=== PATIENT | male | born 2000 | race Two or more races ===

== ENCOUNTER 2023-05-04 08:22 | Outpatient (REF) | payer OTHER, SELFPAY ==
[2023-05-05 09:49] LABS: C. Difficile PCR NEGATIVE (NEGATIVE)
== END 2023-05-04 09:30 | disposition home or self-care (01) ==
LOC: LAB 08:22
PROVIDERS: PCP Nurse Practitioner; Visit Provider Nurse Practitioner
DX: R53.83 Other fatigue (principal); R10.9 Unspecified abdominal pain; R19.7 Diarrhea, unspecified; R42 Dizziness and giddiness; F17.200 Nicotine dependence, unspecified, uncomplicated
CPT/HCPCS: 87493

== ENCOUNTER 2024-08-20 12:49 | Emergency (ER) | payer BC, SELFPAY ==
[2024-08-20 12:53] VITALS: BP 145/83; PULSE 96; TEMP 36.4; O2SAT 100; BMI 17.8
--- NOTE | 2024-08-20 13:07 | US_ITS ---
[address] [address] Patient Name: MARGARETH BRICENO MRN: [id number] date: 2000 Sex: M Assigned Patient Location: ER Current Patient Location: ED.MAIN Accession/Order Number: [id number] Exam Date: 08/20/2024 13:34 Report Date: 08/20/2024 14:56 At the request of: ED BOO Procedure: US scrotum doppler EXAM: US scrotum doppler HISTORY: pain left testicle COMPARISON: None. TECHNIQUE: Scrotal/vascular ultrasound with grayscale and color Doppler imaging FINDINGS: Normal symmetric appearance and symmetric 1 testicles without focal lesion, edema or evidence of torsion. Right testicle 4.6 x 2.1 x 3.2 cm. Left testicle 4.5 x 2.6 x 3.4 cm. Normal homogeneous appearance right left epididymis without focal lesion or abnormal flow. No hydrocele. Prominent vessels medial to the left testicle suggests varicocele. US/US scrotum doppler IMPRESSION: 1 normal appearance and symmetric flow testicles without focal lesion or torsion. 2. Varicocele. Electronically authenticated by: RENU CORCORAN Date: 08/20/2024 14:56
[2024-08-20 13:53] VITALS: BP 125/75; PULSE 84; O2SAT 99
[2024-08-20 14:40] LABS: Bilirubin Urine NEGATIVE (NEGATIVE); Blood Urine NEGATIVE (NEGATIVE); Clarity Urine CLEAR (CLEAR); Color Urine LT. YELLOW (YELLOW); Glucose Urine UA NEGATIVE (NEGATIVE); Ketones Urine NEGATIVE (NEGATIVE); Leukocyte Esterase Urine NEGATIVE (NEGATIVE); Nitrite Urine NEGATIVE (NEGATIVE); Protein Urine NEGATIVE (NEG/TRACE); Specific Gravity Urine <=1.005 (1.005-1.025); Urobilinogen Urine 0.2 EU/dL (0.2-1.0)
[2024-08-20 14:41] LABS: Urine Microscopic Indicated NO
[2024-08-20 14:42] LABS: Cast Seen? NONE SEEN #/LPF (NONE SEEN)
--- NOTE | 2024-08-20 14:51 | ED_ITS ---
HPI - Male Genitourinary General Chief complaint: Urogenital-Male Stated complaint: L TESTICULAR PAIN Time Seen by Provider: 08/20/24 12:51 Source: patient Mode of arrival: walk-in Limitations: no limitations History of Present Illness HPI Narrative: Yesterday, the patient started to experience intermittent pain in the left testicle. Today it became constant. He also states that he has had some pain with urination. No prior history of kidney stone or testicular torsion. No fever vomiting Related Data Allergies Allergy/AdvReac Type Severity Reaction Status Date / Time No Known Drug Allergies Allergy Verified 08/20/24 12:58 PFSH PFSH Social History Little interest or pleasure in doing things: not at all Feeling down, depressed, or hopeless: not at all Exam Narrative Exam Narrative: Nurses notes and vital signs reviewed and patient is not hypoxic. afebrile General: Well-appearing and in no apparent distress. Skin: Warm, dry, no pallor noted. No rash. Eye: No scleral icterus. Cardiovascular: Regular Rate and Rhythm without murmur, gallop or rub. Respiratory: No accessory muscle use or respiratory distress. Lungs are clear to auscultation, no wheezing, rales or rhonchi Back: No CVA tenderness Musculoskeletal: normal ROM GI: Abdomen is soft, non-distended. Normal bowel sounds. No inguinal masses appreciated. No abdominal or inguinal tenderness to palpation. No rebound, guarding, or rigidity noted. Genital: Normal-appearing male genitalia. No skin lesions or sign of chancroid. Negative Prehn's sign. Patient does have some pain with left testicular manipulation and palpation of the superior aspect of the left testicle neurological: A&O x4. No cranial nerve dysfunction observed. No truncal ataxia. Moves all extremities. Sensation intact. Psychiatric: Cooperative and interactive. Normal mood and affect. Constitutional Vital Signs, click to edit/add: Last Vital Signs Temp 97.6 F 08/20/24 12:53 Pulse 84 08/20/24 13:53 Resp 20 08/20/24 13:53 BP 125/75 08/20/24 13:53 Pulse Ox 99 08/20/24 13:53 O2 Del Method Room Air 08/20/24 13:53 Course Vital Signs Vital signs: Vital Signs Temperature 97.6 F 08/20/24 12:53 Pulse Rate 96 H 08/20/24 12:53 Respiratory Rate 20 08/20/24 12:53 Blood Pressure 145/83 H 08/20/24 12:53 Pulse Oximetry 100 08/20/24 12:53 Oxygen Delivery Method Room Air 08/20/24 12:53 Temperature 97.6 F 08/20/24 12:53 Pulse Rate 84 08/20/24 13:53 Respiratory Rate 20 08/20/24 13:53 Blood Pressure 125/75 08/20/24 13:53 Pulse Oximetry 99 08/20/24 13:53 Oxygen Delivery Method Room Air 08/20/24 13:53 MDM - Male Genitourinary MDM Narrative Medical decision making narrative: Scrotal ultrasound did not reveal any testicular mass. He has good flow to both testicles. There is a little bit of varicocele noted on the left testicle. No epididymitis was appreciated. UA was negative Results explained to pt and he was discharged home - tylenol or motrin for pain, drink plenty of fluids. Lab Data Attestation: I reviewed the patient's lab results. Labs: Lab Results 08/20/24 Range/Units 13:18 Urine Color Lt. yellow (YELLOW) Urine Clarity Clear (CLEAR) Urine pH 7.0 (5.0-9.0) Ur Specific [place] <=1.005 A (1.005-1.025) Urine Protein Negative (NEG/TRACE) mg/dL Urine Glucose (UA) Negative (NEGATIVE) mg/dL Urine Ketones Negative (NEGATIVE) mg/dL Urine Occult Blood Negative (NEGATIVE) Urine Nitrite Negative (NEGATIVE) Urine Bilirubin Negative (NEGATIVE) Urine Urobilinogen 0.2 (0.2-1.0) EU/dL Ur Leukocyte Esterase Negative (NEGATIVE) Urine RBC Not Reportable Urine WBC Not Reportable Ur Squamous Epith Cells Not Reportable Urine Crystals Not Reportable Urine Bacteria Not Reportable Urine Casts None seen (NONE SEEN) #/LPF Urine Mucus Not Reportable Imaging Data us scrotum: Attestation: I have reviewed the pertinent imaging results. Radiologist's impression: ITS Impressions Scrotum Ultrasound 08/20/24 13:07 IMPRESSION: 1 normal appearance and symmetric flow testicles without focal lesion or torsion. 2. Varicocele. Electronically authenticated by: RENU CORCORAN Date: 08/20/2024 14:56 Discharge Plan Discharge Chief Complaint: Urogenital-Male Clinical Impression: Varicocele, Left testicular pain Patient Disposition: Home, Self-Care Time of Disposition Decision: 15:00 Print Language: French Instructions: Testicle Pain (ED) Referrals: DANA CALVO [Primary Care Provider] - 1 week Sean Romero MD [Physician] - As needed
== END 2024-08-20 15:11 | disposition home or self-care (01) ==
PROVIDERS: Emergency Provider Emergency Medicine; PCP Nurse Practitioner
DX: I86.1 Scrotal varices (principal); N50.812 Left testicular pain
CPT/HCPCS: 76870; 81001; 81003; 93976; 99284

== ENCOUNTER 2024-09-16 09:31 | Outpatient (OUT) | payer BC, SELFPAY ==
--- NOTE | 2024-09-16 09:38 | XR_ITS ---
[facility] [place] [id number] Patient Name: MARGARETH BRICENO MRN: [id number] date: 2000 Sex: M Assigned Patient Location: [facility] Current Patient Location: [facility] Accession/Order Number: [id number] Exam Date: 09/16/2024 11:08 Report Date: 09/16/2024 11:09 At the request of: DANA CALVO Procedure: XR chest 2V PA AND LATERAL CHEST: CLINICAL HISTORY: Cough, Wheezing COMPARISON: 03/29/2022 There is no focal parenchymal consolidation, effusion or pneumothorax. The cardiac, hilar and mediastinal silhouettes are within normal limits. There is no vascular congestion. The visualized bony thorax is intact. There is subtle thoracolumbar scoliotic curvature. XR/XR chest 2V IMPRESSION: NO ACUTE CARDIOPULMONARY ABNORMALITY. Impression dictated by: Karolyn Andre M.D.09/16/2024 11:09 AM [facility]ation [facility] Electronically authenticated by: [id number] Y Date: 09/16/2024 11:09
== END 2024-09-16 09:32 | disposition home or self-care (01) ==
LOC: RAD 09:32
PROVIDERS: PCP Nurse Practitioner; Visit Provider Nurse Practitioner
DX: R05.9 Cough, unspecified (principal); R06.2 Wheezing
CPT/HCPCS: 71046

== ENCOUNTER 2024-10-24 19:25 | Emergency (ER) | payer SELFPAY ==
[2024-10-24 19:35] VITALS: BP 121/83; PULSE 77; TEMP 36.6; O2SAT 100; BMI 17.2
--- OUTSIDE RECORDS SUMMARY | 2024-10-24 19:38 | XMS_ITS | CCD ---
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 mg/inh [place], 1 spray(s), Nasal, BID, 1 refills Al (more content not included)... Normal [facility] Comment on above: Result Comment: Elec tronically Signed By: Rani Vasquez\.br\Date and Time Signed: 08/30/24 12:19 EST Ambulatory Visit Summaryon 0 08-05-2024 Ambulatory Visit Summary Ambulatory Visit Summary MARGARETH BRICENO :2000 Visit Date:08/05/2024 Ambulatory Visit Instructions Your Diagnosis Smoker Body mass index (BMI) less than 16.5 Ear pain Your Care Team Attending Physician - Rani Vasquez Primary Care Physician - Rani Vasquez This Is Your Medications List escitalopram (escitalopram 5 mg oral tablet) Procedures Performed Extraction of wisdom tooth. Discharge Vitals Temperature (Oral) 36.8 ???C Heart Rate (Peripheral) 90 Respiratory Rate 20 Blood Pressure 110/80 Height 169.0 cm Height 67 in Weight 48.3 kg Weight 106.483 lb BMI 16.91 What to do next Scheduled Follow-Up Appointments Thursday 10:20 AM EST With: Rani Vasquez Where: [address] [id number]- Medications What How Much When Why Instructions Unchanged escitalopram (escitalopram 5 mg oral tablet) 1 Tablets By Mouth Every day Smoker Body mass index (BMI) less than 16.5 Right otitis media Swollen lymph nodes Anxiety Medications and Immunizations Administered Given Kenalog-40, 40 mg, IntraARTICULAR. For: Ear pain Allergies No Known Allergies Problems Ongoing - Any problem that you are currently receiving treatment for. Acid reflux Anxiety Bloating BMI less than 19,adult Body mass index (BMI) of 19 or less in adult Cerumen impaction Chest congestion Chest discomfort Cough Diarrhea Dizziness Dysuria Exposure to chlamydia Fatigue Fever Folliculitis High risk heterosexual behavior Racing heart beat Right otitis media Seasonal allergies Sinusitis Smoker Sore of penis Stomach pain Swollen lymph nodes Wheezing Patient Survey You may receive a survey via text or e-mail asking about your office visit. Please share your experience with us by completing your survey. We appreciate your feedback and thank you for choosing us for your care. Normal [facility] Medicine Office/Clini c Noteon 08-05-2024 Family Medicine Office/Clinic Note Family Medicine Office/Clinic Note HPI Staff Margareth is a 24 year old male presenting with Onset: 2 weeks Fevers: no Sinus congestion: yes Sneezing: a little bit Ear pain: Ear itching, popping, fullness, ringing, muffled hearing: POPPING, Ear drainage: yes both Swollen nodes: no Sore throat: no Ear pain worse with chewing: no Itching: no Difficulty hearing: yes Wheezing, cough, yellow mucous Interested in a shot instead of pills (04-25-24) was his last one MERCED- he didn't take ANY of the meds you gave him MERCED- he wants the shot instead History of Present Illness pt presents today c/o popping in ears and wheezing Review of Systems PHQ Score Initial Depression Screen Score: 2 SCORE Physical Exam Vitals & Measurements T: 36.8 ???C(Oral) HR: 90(Peripheral) RR: 20 BP: 110/80 SpO2: 98% HT: 67 in HT: 169.0 cm WT: 48.3 kg WT: 106.483 lb BMI: 16.91 General: alert, no acute distress ENMT: oral mucosa moist, no pharyngeal erythema or exudate, MARIBEL TM bulging with fluid Cardiovascular: regular rate and rhythm, normal peripheral perfusion Respiratory: Lungs expiratory wheezes, respirations non labored Extremities: no deformity, no trauma Neurological: oriented x 4, LOC appropriate for age, CN II-XII intact, motor strength equal & normal bilaterally, speech normal Assessment/Plan 1. Ear pain (H92.09: Otalgia, unspecified ear) pt c/o ear pain and popping. MARIBEL TM are bulging with fluid. pt never took antibiotic that I sent in or medrol dose pack from last visit. he will start antibiotic today Ordered: triamcinolone, 40 mg = 1 mL, Injection, IntraARTICULAR, Once, Stop date 08/05/24 14:42:00 EST, Routine, Start date 08/05/24 14:42:00 EST, 08/05/24 14:42:00 EST 2. Wheezing (R06.2: Wheezing) kenalog given. will start antibiotic 3. Fluid level behind tympanic membrane of both ears (H65.93: Unspecified nonsuppurative otitis media, bilateral) will give kenlaong 40mg in office today 4. Smoker (F17.200: Nicotine dependence, unspecified, uncomplicated) continue not smoking 5. Body mass index (BMI) less than 16.5 (Z68.1: Body mass index [BMI] 19.9 or less, adult) BMi education Follow-up No qualifying data available Problem List/Past Medical History Ongoing Acid reflux Anxiety Bloating BMI less than 19,adult Body mass index (BMI) of 19 or less in adult Cerumen impaction Chest congestion Chest discomfort Cough Diarrhea Dizziness Dysuria Exposure to chlamydia Fatigue Fever Fluid level behind tympanic membrane of both ears Folliculitis High risk heterosexual behavior Racing heart beat Right otitis media Seasonal allergies Sinusitis Smoker Sore of penis Stomach pain Swollen lymph nodes Wheezing Historical No qualifying data Procedure/Surgical History Extraction of wisdom tooth. Medications escitalopram 5 mg oral tablet, 5 mg= 1 tab(s), Oral, Daily, 1 refills Allergies No Known Allergies Social History Alcohol Current. Beer. 1-2 times per month., 06/27/2024 Substance Abuse Past. Cocaine, Marijuana, Prescription medications. Previous treatment: None., 06/27/2024 Tobacco 10 or more cigarettes (1/2 pack or more)/day in last 30 days Tobacco Use:. Never Smokeless Tobacco Use:. Cigarettes, Started age 18.0 Years. Household tobacco concerns: No. Yes, 08/05/2024 Family History Hypertension: Grandparent. Immunizations Vaccine Date Status Comments influenza virus vaccine, inactivated - Not Given Patient Refuses poliovirus vaccine, inactivated 02/23/2006 Recorded measles/mumps/rubella virus vaccine 02/23/2006 Recorded diphtheria/pertussis, acel/tetanus ped 02/23/2006 Recorded varicella virus vaccine 09/05/2002 Recorded Hib, unspecified formulation 09/05/2002 Recorded DTaP, unspecified formulation 09/05/2002 Recorded measles/mumps/rubella virus vaccine 02/23/2002 Recorded poliovirus vaccine, inactivated 2001 Recorded DTaP, unspecified formulation 2001 Recorded poliovirus vaccine, inactivated 2001 Recorded DTaP, unspecified formulation 2001 Recorded poliovirus vaccine, inactivated 2001 Recorded DTaP, unspecified formulation 2001 Recorded Normal [facility] Comment on above: Result Comment: Elec tronically Signed By: Rani Vasquez\.br\Date and Time Signed: 08/05/24 15:58 EST Provider Letteron 08-05-2024 Provider Letter Provider Letter August 05, 2024 MARGARETH BR[address]ENO [address] [place] [address] : 2000 To Whom It May Concern, Please excuse above patient from work.08/05/2024 Date of Illness: From: 08/05/2024 To: _08/09/2024 May Return to Work On:08/10/2024 Sincerely, [facility] [place] [address] Alesha Rubio [facility] Medicine Office/Clini c Noteon 07-19-2024 Family Medicine Office/Clinic Note Family Medicine Office/Clinic Note HPI Staff Margareth is a 24 year old male presenting with swollen lymph nodes/ lump in throat Onset: Last Thursday morning woke up when he swallows he feels like swallowing a big pill that won't go down Right side lymph node swollen pressure against throat Tried nothing History of Present Illness pt presents today with swollen lymph node and sore throat Review of Systems PHQ Score Initial Depression Screen Score: 0 SCORE Physical Exam Vitals & Measurements T: 36.3 ???C(Oral) HR: 90(Peripheral) RR: 18 BP: 116/78 SpO2: 100% HT: 67 in HT: 169.0 cm WT: 47.8 kg WT: 105.381 lb BMI: 16.74 General: alert, no acute distress ENMT: oral mucosa moist, no pharyngeal erythema or exudate, right TM red and full of fluid Cardiovascular: regular rate and rhythm, normal peripheral perfusion Respiratory: Lungs CTA, respirations non labored Extremities: no deformity, no trauma Neurological: oriented x 4, LOC appropriate for age, CN II-XII intact, motor strength equal & normal bilaterally, speech normalsmall right sided mandibular lymph node swollen and tender Assessment/Plan 1. Right otitis media (H66.91: Otitis media, unspecified, right ear) Right OM noted on exam. will treat with antibiotic. 2. Swollen lymph nodes (R59.9: Enlarged lymph nodes, unspecified) swollen and tender lymph node on right side. medrol dose pack sent in 3. Anxiety (F41.9: Anxiety disorder, unspecified) pt feels his anxiety is worsening and would like to start on medication. will start low dose lexapro. RTC 4 weeks 4. Smoker (F17.200: Nicotine dependence, unspecified, uncomplicated) consider not smoking 5. Body mass index (BMI) less than 16.5 (Z68.1: Body mass index [BMI] 19.9 or less, adult) BMI education given Follow-up No qualifying data available Problem List/Past Medical History Ongoing Acid reflux Anxiety Bloating BMI less than 19,adult Body mass index (BMI) of 19 or less in adult Cerumen impaction Chest congestion Chest discomfort Cough Diarrhea Dizziness Dysuria Exposure to chlamydia Fatigue Fever Folliculitis High risk heterosexual behavior Racing heart beat Right otitis media Seasonal allergies Sinusitis Smoker Sore of penis Stomach pain Swollen lymph nodes Wheezing Historical No qualifying data Procedure/Surgical History Extraction of wisdom tooth. Medications Augmentin 875 mg oral tablet, 1 tab(s), Oral, q12hr escitalopram 5 mg oral tablet, 5 mg= 1 tab(s), Oral, Daily, 1 refills Medrol 4 mg Tab, 1 packet(s), Oral, As Directed Allergies No Known Allergies Social History Alcohol Current. Beer. 1-2 times per month., 06/27/2024 Substance Abuse Past. Cocaine, Marijuana, Prescription medications. Previous treatment: None., 06/27/2024 Tobacco 10 or more cigarettes (1/2 pack or more)/day in last 30 days Tobacco Use:. Never Smokeless Tobacco Use:. Cigarettes, Started age 18.0 Years. Household tobacco concerns: No. Yes, 06/27/2024 Family History Hypertension: Grandparent. Immunizations Vaccine Date Status Comments influenza virus vaccine, inactivated - Not Given Patient Refuses poliovirus vaccine, inactivated 02/23/2006 Recorded measles/mumps/rubella virus vaccine 02/23/2006 Recorded diphtheria/pertussis, acel/tetanus ped 02/23/2006 Recorded varicella virus vaccine 09/05/2002 Recorded Hib, unspecified formulation 09/05/2002 Recorded DTaP, unspecified formulation 09/05/2002 Recorded measles/mumps/rubella virus vaccine 02/23/2002 Recorded poliovirus vaccine, inactivated 2001 Recorded DTaP, unspecified formulation 2001 Recorded poliovirus vaccine, inactivated 2001 Recorded DTaP, unspecified formulation 2001 Recorded poliovirus vaccine, inactivated 2001 Recorded DTaP, unspecified formulation 2001 Recorded Normal [facility] Comment on above: Result Comment: Elec tronically Signed By: Rani Vasquez\.br\Date and Time Signed: 07/19/24 08:17 EST Chlam/GC/TrichReed 024 C. trachomatis rRNA NELSY+probe Ql (Unsp spec) Negative Invalid Interpretation Code Negative [facility] Comment on above: Performed By: #### 1 [id number] #### [facility] [address] [place] [address] N. gonorrhoeae rRNA NELSY+probe Ql (Unsp spec) Negative Invalid Interpretation Code Negative [facility] Comment on above: Performed By: #### 1 [id number] #### [facility] [address] [place] [address] T. vaginalis rRNA NELSY+probe Ql (Unsp spec) Negative Invalid Interpretation Code Negative [facility] Comment on above: Result Comment: Perf ormed at: =G [facility] [address] [facility] [place] [id number] MD William Dunbar Performed By: #### 1 [id number] #### [facility] [address] [place] [address] Reminderson 06-30-2024 Reminders Reminders From: Rani Vasquez To: [facility] - Clinical; Sent: 06/30/2024 11:44:03 EST Show up: 06/30/2024 11:44:00 EST Subject: Ambulatory Reminder Due Date/Time: 07/01/2024 11:43:00 EST STD tests were negative Results: Date Result Name Value Ref Range 06/27/2024 9:38 Chlamydia by NELSY Negative (Negative - ) 06/27/2024 9:38 Gonococcus by NELSY Negative (Negative - ) 06/27/2024 9:38 Trich vag by NELSY Negative (Negative - ) Pt has been notified. Normal [facility] Ambulatory Visit Summaryon 1 08-28-2023 Ambulatory Visit Summary Ambulatory Visit Summary MARGARETH BRICENO :2000 Visit Date:06/27/2024 Ambulatory Visit Instructions Your Diagnosis Cough Dysuria BMI less than 19,adult Smoker Your Care Team Attending Physician - Rani Vasquez Primary Care Physician - Rani Vasquez This Is Your Medications List brompheniramine/dextr omethorphan/PSE (Bromfed DM oral syrup) fluticasone nasal (Flonase 0.05 mg/inh [place]) Procedures Performed Extraction of wisdom tooth. Discharge Vitals Temperature (Tympanic) 36.8 ???C Heart Rate (Peripheral) 78 Respiratory Rate 18 Blood Pressure 120/80 Height 169 cm Height 67 in Weight 48.55 kg Weight 107.034 lb BMI 17 Medications What How Much When Why Instructions New brompheniramine/ dextromethorphan/ PSE (Bromfed DM oral syrup) 5 Milliliter By Mouth At bedtime as needed for for cold symptoms Cough Dysuria BMI less than 19,adult Smoker Pickup at [facility] Unchanged fluticasone nasal (Flonase 0.05 mg/ inh [place]) 1 Sprays Nasal Inhalation 2 times a day Seasonal allergies Sinusitis Cerumen impaction Smoker BMI less than 19,adult each nostril Pharmacy Information [facility]: [address] [place], [place] [id number] [phone] Allergies No Known Allergies Problems Ongoing - Any problem that you are currently receiving treatment for. Acid reflux Bloating BMI less than 19,adult Body mass index (BMI) of 19 or less in adult Cerumen impaction Chest congestion Chest discomfort Cough Diarrhea Dizziness Dysuria Exposure to chlamydia Fatigue Fever Folliculitis High risk heterosexual behavior Racing heart beat Seasonal allergies Sinusitis Smoker Sore of penis Stomach pain Wheezing Patient Survey You may receive a survey via text or e-mail asking about your office visit. Please share your experience with us by completing your survey. We appreciate your feedback and thank you for choosing us for your care. Normal [facility] Family Medicine Office/Clini c Noteon 06-27-2024 Family Medicine Office/Clinic Note Family Medicine Office/Clinic Note Chief Complaint STD check & Sick Visit HPI Staff Margareth is a 24 year old male presenting with STD check and possible and pneumonia. Denies difficulty breathing. Daughter was hospitalized with pneumonia last week. Did have cough for 2wks. Has been keeping him up at night. Would like tested for Trich/Chlam & Brian. Has been having burning with urination. History of Present Illness pt presents today for painful urination requesting STD testing and cough Review of Systems PHQ Score Initial Depression Screen Score: 1 SCORE Physical Exam Vitals & Measurements T: 36.8 ???C(Tympanic) HR: 78(Peripheral) RR: 18 BP: 120/80 SpO2: 95% HT: 67 in HT: 169 cm WT: 48.55 kg WT: 107.034 lb BMI: 17 General: alert, no acute distress ENMT: oral mucosa moist, no pharyngeal erythema or exudate Cardiovascular: regular rate and rhythm, normal peripheral perfusion Respiratory: Lungs CTA, respirations non labored Extremities: no deformity, no trauma Neurological: oriented x 4, LOC appropriate for age, CN II-XII intact, motor strength equal & normal bilaterally, speech normal Assessment/Plan 1. Cough (R05.9: Cough, unspecified) pt has had a cough for about 3 weeks. cough is improving except for at bedtime. will send Bromfed to help with cough. Ordered: brompheniramine/dextr omethorphan/PSE, 5 mL, Oral, Bedtime for cold symptoms, 120 mL, Refill(s) 0, [facility], 169, cm, 06/27/24 9:15:00 EST, Height/Length Dosing, 48.5, kg, 06/27/24 9:15:00 EST, Weight Dosing 2. Dysuria (R30.0: Dysuria) pt c/o dysuria, will run u/a and std testing. u/a negative in office today Ordered: brompheniramine/dextr omethorphan/PSE, 5 mL, Oral, Bedtime for cold symptoms, 120 mL, Refill(s) 0, [facility], 169, cm, 06/27/24 9:15:00 EST, Height/Length Dosing, 48.5, kg, 06/27/24 9:15:00 EST, Weight Dosing Chlam/GC/Trich,NELSY Urnls Dip Stick Auto w/o [place]scopy P[place] 26044 3. BMI less than 19,adult (Z68.1: Body mass index [BMI] 19.9 or less, adult) BMI education Ordered: brompheniramine/dextr omethorphan/PSE, 5 mL, Oral, Bedtime for cold symptoms, 120 mL, Refill(s) 0, [facility], 169, cm, 06/27/24 9:15:00 EST, Height/Length Dosing, 48.5, kg, 06/27/24 9:15:00 EST, Weight Dosing 4. Smoker (F17.200: Nicotine dependence, unspecified, uncomplicated) consider not smoking Ordered: brompheniramine/dextr omethorphan/PSE, 5 mL, Oral, Bedtime for cold symptoms, 120 mL, Refill(s) 0, [facility], 169, cm, 06/27/24 9:15:00 EST, Height/Length Dosing, 48.5, kg, 06/27/24 9:15:00 EST, Weight Dosing Follow-up No qualifying data available Problem List/Past Medical History Ongoing Acid reflux Bloating BMI less than 19,adult Body mass index (BMI) of 19 or less in adult Cerumen impaction Chest congestion Chest discomfort Cough Diarrhea Dizziness Dysuria Exposure to chlamydia Fatigue Fever Folliculitis High risk heterosexual behavior Racing heart beat Seasonal allergies Sinusitis Smoker Sore of penis Stomach pain Wheezing Historical No qualifying data Procedure/Surgical History Extraction of wisdom tooth. Medications Bromfed DM oral syrup, 5 mL, Oral, Bedtime, PRN Flonase 0.05 mg/inh [place], 1 spray(s), Nasal, BID Allergies No Known Allergies Social History Alcohol Current. Beer. 1-2 times per month., 06/27/2024 Substance Abuse Past. Cocaine, Marijuana, Prescription medications. Previous treatment: None., 06/27/2024 Tobacco 10 or more cigarettes (1/2 pack or more)/day in last 30 days Tobacco Use:. Never Smokeless Tobacco Use:. Cigarettes, Started age 18.0 Years. Household tobacco concerns: No. Yes, 06/27/2024 Family History Hypertension: Grandparent. Immunizations Vaccine Date Status Comments influenza virus vaccine, inactivated - Not Given Patient Refuses poliovirus vaccine, inactivated 02/23/2006 Recorded measles/mumps/rubella virus vaccine 02/23/2006 Recorded diphtheria/pertussis, acel/tetanus ped 02/23/2006 Recorded varicella virus vaccine 09/05/2002 Recorded Hib, unspecified formulation 09/05/2002 Recorded DTaP, unspecified formulation 09/05/2002 Recorded measles/mumps/rubella virus vaccine 02/23/2002 Recorded poliovirus vaccine, inactivated 2001 Recorded DTaP, unspecified formulation 2001 Recorded poliovirus vaccine, inactivated 2001 Recorded DTaP, unspecified formulation 2001 Recorded poliovirus vaccine, inactivated 2001 Recorded DTaP, unspecified formulation 2001 Recorded Lab Results Ambulatory Point of Care Results Bilirubin Urine Dipstick: Negative (06/27/24 09:40:00) Blood Urine Dipstick: Negative (06/27/24 09:40:00) Glucose Urine Dipstick: Negative (06/27/24 09:40:00) Ketones Urine Dipstick: Negative (06/27/24 09:40:00) Leukocytes Urine Dipstick: Negative (06/27/24 09:40:00) Nitrite Urine Dipstick: Negative (06/27/24 09:40:00) Prote (more content not included)... Normal [facility] Comment on above: Result Comment: Elec tronically Signed By: Rani Vasquez\.br\Date and Time Signed: 06/27/24 10:04 EST Ambulatory Visit Summaryon 0 04-25-2024 Ambulatory Visit Summary Ambulatory Visit Summary MARGARETH BRICENO :2000 Visit Date:04/25/2024 Ambulatory Visit Instructions Your Diagnosis Seasonal allergies Sinusitis Cerumen impaction Racing heart beat Smoker BMI less than 19,adult Your Care Team Attending Physician - Rani Vasquez Primary Care Physician - Rani Vasquez This Is Your Medications List azithromycin (azithromycin 500 mg oral tablet) fluticasone nasal (Flonase 0.05 mg/inh [place]) Procedures Performed Extraction of wisdom tooth. Discharge Vitals Temperature (Oral) 36.7 ?C Heart Rate (Peripheral) 74 Respiratory Rate 18 Blood Pressure 116/78 Height 169.0 cm Height 67 in Weight 50.5 kg Weight 111.1 lb BMI 17.68 Medications What How Much When Why Instructions New fluticasone nasal (Flonase 0.05 mg/ inh [place]) 1 Sprays Nasal Inhalation 2 times a day Seasonal allergies Sinusitis Cerumen impaction Smoker BMI less than 19,adult each nostril Pickup at [facility] Unchanged azithromycin (azithromycin 500 mg oral tablet) 1 Tablets By Mouth Every day Duration: 5 Days Pickup at [facility] Pharmacy Information [facility]: [address] [place] [id number] [phone] Allergies No Known Allergies Problems Ongoing - Any problem that you are currently receiving treatment for. Acid reflux Bloating BMI less than 19,adult Body mass index (BMI) of 19 or less in adult Cerumen impaction Chest congestion Chest discomfort Cough Diarrhea Dizziness Exposure to chlamydia Fatigue Fever Folliculitis High risk heterosexual behavior Racing heart beat Seasonal allergies Sinusitis Smoker Sore of penis Stomach pain Wheezing Patient Survey You may receive a survey via text or e-mail asking about your office visit. Please share your experience with us by completing your survey. We appreciate your feedback and thank you for choosing us for your care. Alesha [facility] Family Medicine Office/Clini c Noteon 04-25-2024 Family Medicine Office/Clinic Note Family Medicine Office/Clinic Note HPI Staff Margareth is a 24 year old male presenting with productive cough, sore throat, chills, dizzy, lower right abdomen Onset; Started over the weekend Body aches: yes Chills: yes Fatigue: yes Cough: yes Sore throat: yes Fever: no hasn't checked Headache: no Nasal congestion: yes Loss of taste: no Loss of smell: no Eye itching/watering: no Sneezing: no SOB: yes Known Exposure: History of Present Illness pt presents with URI symptoms Review of Systems PHQ Score Initial Depression Screen Score: 0 SCORE Physical Exam Vitals & Measurements T: 36.7 ?C(Oral) HR: 74(Peripheral) RR: 18 BP: 116/78 SpO2: 99% HT: 67 in HT: 169.0 cm WT: 50.5 kg WT: 111.1 lb BMI: 17.68 General: alert, no acute distress ENMT: oral mucosa moist, no pharyngeal erythema or exudate Cardiovascular: regular rate and rhythm, normal peripheral perfusion Respiratory: Lungs CTA, respirations non labored Extremities: no deformity, no trauma Neurological: oriented x 4, LOC appropriate for age, CN II-XII intact, motor strength equal & normal bilaterally, speech normal both ears impacted with wax Assessment/Plan 1. Seasonal allergies (J30.2: Other seasonal allergic rhinitis) kenalog 40mg given in office today. pt encouraged to get zyrtec and flonase was ordered. Ordered: fluticasone nasal, 1 spray(s), Nasal, BID, 16 gram, Refill(s) 0, each nostril, [facility], 169, cm, 04/25/24 15:25:00 EDT, Height/Length Dosing, 50.5, kg, 04/25/24 15:25:00 EDT, Weight Dosing 2. Sinusitis (J32.9: Chronic sinusitis, unspecified) z pack sent. Ordered: fluticasone nasal, 1 spray(s), Nasal, BID, 16 gram, Refill(s) 0, each nostril, [facility], 169, cm, 04/25/24 15:25:00 EDT, Height/Length Dosing, 50.5, kg, 04/25/24 15:25:00 EDT, Weight Dosing 3. Cerumen impaction (H61.20: Impacted cerumen, unspecified ear) pt encouraged to get debrox and return in 7-10 days for ear irrigation Ordered: fluticasone nasal, 1 spray(s), Nasal, BID, 16 gram, Refill(s) 0, each nostril, [facility], 169, cm, 04/25/24 15:25:00 EDT, Height/Length Dosing, 50.5, kg, 04/25/24 15:25:00 EDT, Weight Dosing 4. Racing heart beat (R00.0: Tachycardia, unspecified) pt feels like in the mornings his heart races, he feels dizzy and weak. after drinking coffee he feels better. will order fasting glucose. 5. Smoker (F17.200: Nicotine dependence, unspecified, uncomplicated) consider not smoking Ordered: fluticasone nasal, 1 spray(s), Nasal, BID, 16 gram, Refill(s) 0, each nostril, [facility], 169, cm, 04/25/24 15:25:00 EDT, Height/Length Dosing, 50.5, kg, 04/25/24 15:25:00 EDT, Weight Dosing Influenza Type A&B POC 29973 Rapid COVID POC 54454 6. BMI less than 19,adult (Z68.1: Body mass index [BMI] 19.9 or less, adult) BMI education Ordered: fluticasone nasal, 1 spray(s), Nasal, BID, 16 gram, Refill(s) 0, each nostril, [facility], 169, cm, 04/25/24 15:25:00 EDT, Height/Length Dosing, 50.5, kg, 04/25/24 15:25:00 EDT, Weight Dosing Influenza Type A&B POC 86956 Rapid COVID POC 85137 Orders: azithromycin, 500 mg = 1 tab(s), Oral, Daily, X 5 day(s), # 5 tab(s), Refills(s) 0, Pharmacy: [facility], 169, cm, 04/25/24 15:25:00 EDT, Height/Length Dosing, 50.5, kg, 04/25/24 15:25:00 EDT, Weight Dosing Follow-up No qualifying data available Problem List/Past Medical History Ongoing Acid reflux Bloating BMI less than 19,adult Body mass index (BMI) of 19 or less in adult Cerumen impaction Chest congestion Chest discomfort Cough Diarrhea Dizziness Exposure to chlamydia Fatigue Fever Folliculitis High risk heterosexual behavior Racing heart beat Seasonal allergies Sinusitis Smoker Sore of penis Stomach pain Wheezing Historical No qualifying data Procedure/Surgical History Extraction of wisdom tooth. Medications azithromycin 500 mg oral tablet, 500 mg= 1 tab(s), Oral, Daily Flonase 0.05 mg/inh [place], 1 spray(s), Nasal, BID Allergies No Known Allergies Social History Alcohol Current, Beer, 1-2 times per month, Others hurt by drinking: No., 02/12/2023 Substance Abuse Past, Cocaine, Marijuana, Prescription medications, 09/15/2023 Tobacco 10 or more cigarettes (1/2 pack or more)/day in last 30 days Tobacco Use:. Never Smokeless Tobacco Use:. Cigarettes, Ready to change: No. Household tobacco concerns: No. Yes, 04/25/2024 Family History Hypertension: Grandparent. Immunizations Vaccine Date Status Comments influenza virus vaccine, inactivated - Not Given Patient Refuses poliovirus vaccine, inactivated 02/23/2006 Recorded measles/mumps/rubella virus vaccine 02/23/2006 Recorded diphtheria/pertussis, acel/tetanus ped 02/23/2006 Recorded varicella virus vaccine 09/05/2002 Recorded Hib, unspecified formulation 09/05/2002 Recorded DTaP, unspecified formulation 09/05/2002 Recorde (more content not included)... [facility] Comment on above: Result Comment: Elec tronically Signed By: Rani Vasquez\.br\Date and Time Signed: 04/25/24 15:49 EDT Provider Letteron 04-25-2024 Provider Letter Provider Letter April 25, 2024 MARGARETH BRICENO [address] [place] [address] : 2000 To Whom It May Concern, Please excuse above patient from work. Date of Illness: From: 04-26-24 To: _04-26-24 May Return to Work On:04-27-24 Restrictions: _ Comments: _ Sincerely, Family Medicine [address] [address] [facility] Ambulatory Visit Summaryon 0 03-31-2024 Ambulatory Visit Summary Ambulatory Visit Summary JACQUESMARGARETH MEREDITH :2000 Visit Date:03/31/2024 Ambulatory Visit Instructions Your Diagnosis Acute maxillary sinusitis Your Care Team Attending Physician - YAHIR ROSADO PA-C Primary Care Physician - Rani Vasquez This Is Your Medications List azithromycin (Zithromax 500 mg oral tablet) brompheniramine/dextr omethorphan/PSE (Bromfed DM oral syrup) methylPREDNISolone (Medrol Dosepack 4 mg Tab) Procedures Performed Extraction of wisdom tooth. Discharge Vitals Temperature (Tympanic) 37 ?C Heart Rate (Peripheral) 65 Blood Pressure 115/75 Height 169 cm Height 67 in Weight 52 kg Weight 114.4 lb BMI 18.21 What to do next You Need to Schedule the Following Appointments Follow Up with Rani Vasquez, FAM, MED When: Medications What How Much When Why Instructions New azithromycin (Zithromax 500 mg oral tablet) 1 Tablets By Mouth Every day Acute maxillary sinusitis Duration: 5 Days Pickup at [facility] New brompheniramine/ dextromethorphan/ PSE (Bromfed DM oral syrup) 10 Milliliter By Mouth 4 times a day as needed for for cough and congestion Acute maxillary sinusitis Duration: 7 Days Pickup at [facility] New methylPREDNISolone (Medrol Dosepack 4 mg Tab) 1 Packets By Mouth Once Acute maxillary sinusitis as directed on package labeling Pickup at [facility] Pharmacy Information [facility]: [address] [place] [id number] [phone] Allergies No Known Allergies Problems Ongoing - Any problem that you are currently receiving treatment for. Acid reflux Bloating BMI less than 19,adult Body mass index (BMI) of 19 or less in adult Chest congestion Chest discomfort Cough Diarrhea Dizziness Exposure to chlamydia Fatigue Fever Folliculitis High risk heterosexual behavior Smoker Sore of penis Stomach pain Wheezing Patient Survey You may receive a survey via text or e-mail asking about your office visit. Please share your experience with us by completing your survey. We appreciate your feedback and thank you for choosing us for your care. Education Materials Sinus Infection, Adult A sinus infection is soreness and swelling (inflammation) of your sinuses. Sinuses are hollow spaces in the bones around your face. They are located: ? Around your eyes. ? In the middle of your forehead. ? Behind your nose. ? In your cheekbones. Your sinuses and nasal passages are lined with a fluid called mucus. Mucus drains out of your sinuses. Swelling can trap mucus in your sinuses. This lets germs (bacteria, virus, or fungus) grow, which leads to infection. Most of the time, this condition is caused by a virus. What are the causes? ? Allergies. ? Asthma. ? Germs. ? Things that block your nose or sinuses. ? Growths in the nose (nasal polyps). ? Chemicals or irritants in the air. ? A fungus. This is rare. What increases the risk? ? Having a weak body defense system (immune system). ? Doing a lot of swimming or diving. ? Using nasal sprays too much. ? Smoking. What are the signs or symptoms? The main symptoms of this condition are pain and a feeling of pressure around the sinuses. Other symptoms include: ? Stuffy nose (congestion). This may make it hard to breathe through your nose. ? Runny nose (drainage). ? Soreness, swelling, and warmth in the sinuses. ? A cough that may get worse at night. ? Being unable to smell and taste. ? Mucus that collects in the throat or the back of the nose (postnasal drip). This may cause a sore throat or bad breath. ? Being very tired (fatigued). ? A fever. How is this diagnosed? ? Your symptoms. ? Your medical history. ? A physical exam. ? Tests to find out if your condition is short-term (acute) or long-term (chronic). Your doctor may: ? Check your nose for growths (polyps). ? Check your sinuses using a tool that has a light on one end (endoscope). ? Check for allergies or germs. ? Do imaging tests, such as an MRI or CT scan. How is this treated? Treatment for this condition depends on the cause and whether it is short-term or long-term. ? If caused by a virus, your symptoms should go away on their own within 10 days. You may be given medicines to relieve symptoms. They include: ? Medicines that shrink swollen tissue in the nose. ? A spray that treats swelling of the nostrils. ? Rinses that help get rid of thick mucus in your nose (nasal saline washes). ? Medicines that treat allergies (antihistamines). ? Acql-wtn-togtqfv pain relievers. ? If caused by bacteria, your doctor may wait to see if you will get better without treatment. You may be given antibiotic medicine if you have: ? A very bad infection. ? A weak body defense system. ? If (more content not included)... Normal [facility] Family Medicine Office/Clini c Noteon 03-31-2024 Family Medicine Office/Clinic Note Family Medicine Office/Clinic Note Chief Complaint cough HPI Staff 24 year old male presents with non-productive cough, chest congestion, that started over 2 weeks ago, and painful talking and raspy voice for the past 3 days History of Present Illness Reviewed and agree with above documented HPI by medical and scientific illustrator. Portions of this record may have been created with voice recognition artificial intelligence software, specifically [employer] and or [employer]. Substitutions may have occurred due to the inherent limitations of voice recognition and artificial intelligence software. Patient is a 24-year-old male who present convenient care, nonproductive cough, chest congestion, sinus drainage, sinus pressure, patient states symptoms started 2 weeks ago, past 3 days he has been having sore throat, states it is painful when he was talking, improved yesterday, left of his sore throat today, states he is not concerned about being exposed to COVID-19. Patient is not concerned about being exposed to COVID-19. Patient stated when he eats and drink he has a sense of taste smell intact, has less discomfort swallowing. Patient states that family members at home have similar symptoms, he has not had sinus infections before, feels the symptoms are similar, states he does smoke but he does not vape has no history of asthma or bronchitis. Patient denies having any high fevers, chills, nausea or vomiting, difficulty swallowing, headache, dizziness, productive cough, worsening cough, chest pain, dyspnea on exertion, or weakness. Review of Systems PHQ Score Initial Depression Screen Score: 0 SCORE Physical Exam Vitals & Measurements T: 37 ?C(Tympanic) HR: 65(Peripheral) BP: 115/75 SpO2: 99% HT: 67 in HT: 169 cm WT: 52 kg WT: 114.4 lb BMI: 18.21 General: Well developed, well nourished, in no acute distress patient does appear ill but not septic. Not appear ill or septic. No respiratory distress. Answers questions appropriately and in complete sentences, and follows commands appropriately. Head: Normocephalic/atrauma tic. Positive bilateral maxillary sinus tenderness and pressure with palpation. No frontal sinus tenderness. Eyes: Pupils equal, round, and reactive to light. Conjunctivae and sclerae normal. Ears: Bilateral TMs bulging equally with no signs otitis media or otitis externa. Hearing is intact. Nose: No deformity, discharge, inflammation, or lesions Mouth: Mucous membranes moist. Normal oropharynx, and posterior pharynx without erythema, postnasal drip, lesions, exudates, or enlarged tonsils. No trismus. No difficulty swallowing. Neck: Neck supple. No masses or palpable cervical nodes. No mastoid tenderness. Lungs: Normal respiratory effort and clear to auscultation throughout. Cardio: regular rate and rhythm, no murmur. No chest wall tenderness. Musculoskeletal: Patient is able to move all 4 extremities equally without any pain or weakness. Neurologic: Grossly normal Skin: No rashes, ulcerations, or suspicious lesions Lymph Nodes: no lad Mental Status: alert, active Assessment/Plan No swabs, breathing treatment, chest imaging were indicated at this time. 24-year-old male presents to convenient care, acute maxillary sinusitis, started 2 weeks ago, patient did appear ill but not septic, no respiratory distress, difficulty swallowing, productive cough, chest pain, shortness of breath, weakness. Patient was given prescription for Zithromax, Medrol Dosepak, and Bromfed, patient instructed to take donb-hwt-xhswqne ibuprofen and Tylenol as needed for fever, headaches, pain. Drink plenty water stay hydrated. Given a work excuse note. Follow-up with primary care provider as needed. 1. Acute maxillary sinusitis (J01.00: Acute maxillary sinusitis, unspecified) See above Ordered: azithromycin, 500 mg = 1 tab(s), Oral, Daily, X 5 day(s), # 5 tab(s), Refills(s) 0, Pharmacy: [facility], 169, cm, 03/31/24 14:21:00 EDT, Height/Length Dosing, 52, kg, 03/31/24 14:21:00 EDT, Weight Dosing brompheniramine/dextr omethorphan/PSE, 10 mL, Oral, QID for cough and congestion for 7 day(s), 280 mL, Refill(s) 0, [facility], 169, cm, 03/31/24 14:21:00 EDT, Height/Length Dosing, 52, kg, 03/31/24 14:21:00 EDT, Weight Dosing methylPREDNISolone, = 1 packet(s), Oral, Once, as directed on package labeling, # 21 tab(s), Refills(s) 0, Pharmacy: [facility], 169, cm, 03/31/24 14:21:00 EDT, Height/Length Dosing, 52, kg, 03/31/24 14:21:00 EDT, Weight Dosing Follow-up With When Contact Information Rani Vasquez, [place], MED Additional Instructions: Patient Education Sinus Infection, Adult, [id number] Problem List/Past Medical History Ongoing Acid reflux Bloating BMI less than 19,adult Body mass index (BMI) of 19 or less in adult Chest congestion Chest discomfort Cough Diarrhea Dizziness Exposure to chlamydia Fatigue Fever Folliculitis High risk heteros (more content not included)... [facility] Comment on above: Result Comment: Elec tronically Signed By: ALONZO MODI, YAHIR\.ari\Date and Time Signed: 03/31/24 15:27 EDT Patient Letter FTon 2023 Patient [place] [facility] [place] [facility] [place] [address] [place] [address] March 31, 2024 MARGARETH BRICENO [address] [place] [address] : 2000 Please excuse MARGARETH BRICENO from work . Date and/or Time of Absence: From: 03/31/24 May return to work on: 04/01/24 Restrictions: None Comments: Please excuse due to an acute illness. Provider Signature: Yahir Rosado PA-C [address] [place] [address] [place] [address] [facility] Ambulatory Visit Summaryon 0 02-22-2024 Ambulatory Visit Summary Ambulatory Visit Summary MARGARETH BRICENO :2000 Visit Date:02/22/2024 Ambulatory Visit Instructions Your Diagnosis Wheezing Cough Bloating Smoker BMI less than 19,adult Your Care Team Attending Physician - Rani Vasquez Primary Care Physician - Rani Vasquez This Is Your Medications List azithromycin (azithromycin 250 mg Tab) Procedures Performed Extraction of wisdom tooth. Discharge Vitals Temperature (Axillary) 37.0 ?C Heart Rate (Peripheral) 74 Respiratory Rate 20 Blood Pressure 118/78 Height 169.0 cm Height 67 in Weight 52.2 kg Weight 114.84 lb BMI 18.28 Medications What How Much When Why Instructions New azithromycin (azithromycin 250 mg Tab) 1 Packets By Mouth As Directed Wheezing Cough Smoker BMI less than 19,adult Duration: 5 Days as directed on package labeling Pickup at [facility] Pharmacy Information [facility]: [address] [place] [id number] [phone] Allergies No Known Allergies Problems Ongoing - Any problem that you are currently receiving treatment for. Acid reflux Bloating BMI less than 19,adult Body mass index (BMI) of 19 or less in adult Chest congestion Chest discomfort Cough Diarrhea Dizziness Exposure to chlamydia Fatigue Fever Folliculitis High risk heterosexual behavior Smoker Sore of penis Stomach pain Wheezing Patient Survey You may receive a survey via text or e-mail asking about your office visit. Please share your experience with us by completing your survey. We appreciate your feedback and thank you for choosing us for your care. Normal [facility] Family Medicine Office/Clini c Noteon 02-22-2024 Family Medicine Office/Clinic Note Family Medicine Office/Clinic Note HPI Staff Margareth is a 24 year old male presenting with congestion, coughing up yellow mucous, wheezing, bloating after eating, stomach pains C/O: Duration: _ Started 02/18/24 Body aches: no Chills: no Fatigue: no Cough: yes Sore throat: no Fever: no Headache: no Nasal congestion: yes Loss of taste: no Loss of smell: no Eye itching/watering: no Sneezing: no SOB: no Known Exposure: no Has taking Vitamin C, D and Zinc and [employer] plus Has worked still has his cough with yellow mucus Bloating every afternoon after breakfast. Very discomfortable. Has BM 2x daily He wants something for his wheezing, the morning is the worse with wheezing History of Present Illness pt presents today for URI symptoms. also c/o bloating after eating. Review of Systems PHQ Score Initial Depression Screen Score: 0 SCORE Physical Exam Vitals & Measurements T: 37.0 ?C(Axillary) HR: 74(Peripheral) RR: 20 BP: 118/78 SpO2: 96% HT: 67 in HT: 169.0 cm WT: 52.2 kg WT: 114.84 lb BMI: 18.28 General: alert, no acute distress ENMT: oral mucosa moist, no pharyngeal erythema or exudate Cardiovascular: regular rate and rhythm, normal peripheral perfusion Respiratory: Lungs expiratory wheezes, respirations non labored Extremities: no deformity, no trauma Neurological: oriented x 4, LOC appropriate for age, CN II-XII intact, motor strength equal & normal bilaterally, speech normal Assessment/Plan 1. Wheezing (R06.2: Wheezing) expiratory wheezing noted throughout all lung mendiola. will order z bebe and will given kenalog in office today. RTC as needed Ordered: azithromycin, = 1 packet(s), Oral, As Directed, as directed on package labeling, X 5 day(s), # 6 tab(s), Refills(s) 0, Pharmacy: [facility], 169, cm, 02/22/24 10:22:00 EDT, Height/Length Dosing, 52.2, kg, 02/22/24 10:22:00 EDT, Weight Dosing triamcinolone, 40 mg = 1 mL, Injection, IntraARTICULAR, Once, Stop date 02/22/24 12:34:00 EDT, Routine, Start date 02/22/24 12:34:00 EDT, 02/22/24 12:34:00 EDT 2. Cough (R05.9: Cough, unspecified) pt having cough and yellow congestion Ordered: azithromycin, = 1 packet(s), Oral, As Directed, as directed on package labeling, X 5 day(s), # 6 tab(s), Refills(s) 0, Pharmacy: [facility], 169, cm, 02/22/24 10:22:00 EDT, Height/Length Dosing, 52.2, kg, 02/22/24 10:22:00 EDT, Weight Dosing triamcinolone, 40 mg = 1 mL, Injection, IntraARTICULAR, Once, Stop date 02/22/24 12:34:00 EDT, Routine, Start date 02/22/24 12:34:00 EDT, 02/22/24 12:34:00 EDT 3. Bloating (R14.0: Abdominal distension (gaseous)) pt still c/o bloating. discussed trying simethicone. if this does not help he would like referral to GI Ordered: triamcinolone, 40 mg = 1 mL, Injection, IntraARTICULAR, Once, Stop date 02/22/24 12:34:00 EDT, Routine, Start date 02/22/24 12:34:00 EDT, 02/22/24 12:34:00 EDT 4. Smoker (F17.200: Nicotine dependence, unspecified, uncomplicated) consider not smoking Ordered: azithromycin, = 1 packet(s), Oral, As Directed, as directed on package labeling, X 5 day(s), # 6 tab(s), Refills(s) 0, Pharmacy: [facility], 169, cm, 02/22/24 10:22:00 EDT, Height/Length Dosing, 52.2, kg, 02/22/24 10:22:00 EDT, Weight Dosing triamcinolone, 40 mg = 1 mL, Injection, IntraARTICULAR, Once, Stop date 02/22/24 12:34:00 EDT, Routine, Start date 02/22/24 12:34:00 EDT, 02/22/24 12:34:00 EDT 5. BMI less than 19,adult (Z68.1: Body mass index [BMI] 19.9 or less, adult) BMI education given Ordered: azithromycin, = 1 packet(s), Oral, As Directed, as directed on package labeling, X 5 day(s), # 6 tab(s), Refills(s) 0, Pharmacy: [facility], 169, cm, 02/22/24 10:22:00 EDT, Height/Length Dosing, 52.2, kg, 02/22/24 10:22:00 EDT, Weight Dosing triamcinolone, 40 mg = 1 mL, Injection, IntraARTICULAR, Once, Stop date 02/22/24 12:34:00 EDT, Routine, Start date 02/22/24 12:34:00 EDT, 02/22/24 12:34:00 EDT Orders: azithromycin, 1,000 mg = 2 tab(s), Oral, Once, # 2 tab(s), Refills(s) 0, Pharmacy: [facility], 169, cm, 12/24/23 14:45:00 EDT, Height/Length Dosing, 52.6, kg, 12/24/23 14:45:00 EDT, Weight Dosing Follow-up No qualifying data available Problem List/Past Medical History Ongoing Acid reflux Bloating BMI less than 19,adult Body mass index (BMI) of 19 or less in adult Chest congestion Chest discomfort Cough Diarrhea Dizziness Exposure to chlamydia Fatigue Fever Folliculitis High risk heterosexual behavior Smoker Sore of penis Stomach pain Wheezing Historical No qualifying data Procedure/Surgical History Extraction of wisdom tooth. Medications azithromycin 250 mg Tab, 1 packet(s), Oral, As Directed Kenalog-40, 40 mg= 1 mL, IntraARTICULAR, Once Allergies No Known Allergies Social History Alcohol Current, Beer, 1-2 times per month, Others hurt by drinking: No., 02/12/2023 Substance Abuse Past, Cocaine, (more content not included)... Normal [facility] Comment on above: Result Comment: Elec tronically Signed By: Rani Vasquez\.br\Date and Time Signed: 02/22/24 12:36 EDT Reminderson 12-28-2023 Reminders - From: Rani Vasquez To: [facility] - Clinical; Sent: 12/28/2023 09:01:27 EDT Show up: 12/28/2023 09:02:00 EDT Subject: Ambulatory Reminder Due Date/Time: 12/29/2023 09:01:00 EDT STD tests were all negative Results: Date Result Name Value Ref Range 12/24/2023 15:05 Chlamydia by NELSY Negative (Negative - ) 12/24/2023 15:05 Gonococcus by NELSY Negative (Negative - ) 12/24/2023 15:05 Trich vag by NELSY Negative (Negative - ) pt notified of message below Normal [facility] Chlam/GC/Trich,NAAon 024 C. trachomatis rRNA NELSY+probe Ql (Unsp spec) Negative Invalid Interpretation Code Negative [facility] Comment on above: Performed By: #### 1 [id number] ####[facility] [id number] [place] [address] N. gonorrhoeae rRNA NELSY+probe Ql (Unsp spec) Negative Invalid Interpretation Code Negative [facility] Comment on above: Performed By: #### 1 [id number] ####[facility] [id number] [place] [address] T. vaginalis rRNA NELSY+probe Ql (Unsp spec) Negative Invalid Interpretation Code Negative [facility] Comment on above: Result Comment: [facility]f [facility]med at: [facility] [address] [facility] KRISH Coello [id number] MD William Dunbar Performed By: #### 1 [id number] ####[facility] [id number] [place] [address] Ambulatory Visit Summaryon 0 12-24-2023 Ambulatory Visit Summary MARGARETH BRICENO :2000 Visit Date:12/24/2023 Ambulatory Visit Instructions Your Diagnosis High risk heterosexual behavior Smoker BMI less than 19,adult Your Care Team Attending Physician - Rani Vasquez Primary Care Physician - Rani Vasquez Procedures Performed Extraction of wisdom tooth. Discharge Vitals Heart Rate (Peripheral) 72 Respiratory Rate 16 Blood Pressure 110/68 Height 169 cm Height 67 in Weight 52.6 kg Weight 115.72 lb BMI 18.42 Allergies No Known Allergies Problems Ongoing - Any problem that you are currently receiving treatment for. Acid reflux Bloating BMI less than 19,adult Body mass index (BMI) of 19 or less in adult Chest congestion Chest discomfort Cough Diarrhea Dizziness Exposure to chlamydia Fatigue Fever Folliculitis High risk heterosexual behavior Smoker Sore of penis Stomach pain Wheezing Patient Survey You may receive a survey via text or e-mail asking about your office visit. Please share your experience with us by completing your survey. We appreciate your feedback and thank you for choosing us for your care. Normal [facility] Family Medicine Office/Clini c Noteon 12-24-2023 Family Medicine Office/Clinic Note Chief Complaint STD testing HPI Staff Margareth is a 23 year old male presenting to discuss STD Pt has a new sexual partner and would like to be checked. Burning with urination after intercourse with current partner. Discomfort under testicles that last about an hr after intercourse. Denies discharge. History of Present Illness pt presents today for STD testing Review of Systems PHQ Score Initial Depression Screen Score: 0 SCORE Physical Exam Vitals & Measurements HR: 72(Peripheral) RR: 16 BP: 110/68 HT: 67 in HT: 169 cm WT: 52.6 kg WT: 115.72 lb BMI: 18.42 General: alert, no acute distress ENMT: oral mucosa moist, no pharyngeal erythema or exudate Cardiovascular: regular rate and rhythm, normal peripheral perfusion Respiratory: Lungs CTA, respirations non labored Extremities: no deformity, no trauma Neurological: oriented x 4, LOC appropriate for age, CN II-XII intact, motor strength equal & normal bilaterally, speech normal Assessment/Plan 1. High risk heterosexual behavior (Z72.51: High risk heterosexual behavior) pt presents today for STD testing. he is having burring with urination in the morning and after sex. His current partners ex had chlamydia and he has had chlamydia in the past as well. will send urine for gc/ct/trich. RTC as needed Ordered: Chlam/GC/Trich,NELSY Urinls Dip Stick Non-Auto w/ Micrscpy POC [id number] 2. Smoker (F17.200: Nicotine dependence, unspecified, uncomplicated) consider not smoking Ordered: budesonide, = 2 inh, Inhalation, BID, # 1 EA, Refills(s) 11, Pharmacy: [facility], 167.4, cm, 11/10/23 13:34:00 EDT, Height/Length Dosing, 52, kg, 11/10/23 13:34:00 EDT, Weight Dosing Chlam/GC/Trich,NELSY 3. BMI less than 19,adult (Z68.1: Body mass index [BMI] 19.9 or less, adult) BMI education complete Ordered: budesonide, = 2 inh, Inhalation, BID, # 1 EA, Refills(s) 11, Pharmacy: [facility], 167.4, cm, 11/10/23 13:34:00 EDT, Height/Length Dosing, 52, kg, 11/10/23 13:34:00 EDT, Weight Dosing Chlam/GC/Trich,NELSY Orders: albuterol, 2 puff(s), Inhalation, q6hr, 8.5 gm, Refill(s) 0, [facility], 167.4, cm, 09/24/23 11:21:00 EST, Height/Length Dosing, 51.4, kg, 09/24/23 11:21:00 EST, Weight Dosing Follow-up No qualifying data available Problem List/Past Medical History Ongoing Acid reflux Bloating BMI less than 19,adult Body mass index (BMI) of 19 or less in adult Chest congestion Chest discomfort Cough Diarrhea Dizziness Exposure to chlamydia Fatigue Fever Folliculitis High risk heterosexual behavior Smoker Sore of penis Stomach pain Wheezing Historical No qualifying data Procedure/Surgical History Extraction of wisdom tooth. Medications No active medications Allergies No Known Allergies Social History Alcohol Current, Beer, 1-2 times per month, Others hurt by drinking: No., 02/12/2023 Substance Abuse Past, Cocaine, Marijuana, Prescription medications, 09/15/2023 Tobacco 10 or more cigarettes (1/2 pack or more)/day in last 30 days Tobacco Use:. Never Smokeless Tobacco Use:. Cigarettes, Ready to change: No. Household tobacco concerns: No. Yes, 12/24/2023 Family History Hypertension: Grandparent. Immunizations Vaccine Date Status Comments influenza virus vaccine, inactivated - Not Given Patient Refuses poliovirus vaccine, inactivated 02/23/2006 Recorded measles/mumps/rubella virus vaccine 02/23/2006 Recorded diphtheria/pertussis, acel/tetanus ped 02/23/2006 Recorded varicella virus vaccine 09/05/2002 Recorded Hib, unspecified formulation 09/05/2002 Recorded DTaP, unspecified formulation 09/05/2002 Recorded measles/mumps/rubella virus vaccine 02/23/2002 Recorded poliovirus vaccine, inactivated 2001 Recorded DTaP, unspecified formulation 2001 Recorded poliovirus vaccine, inactivated 2001 Recorded DTaP, unspecified formulation 2001 Recorded poliovirus vaccine, inactivated 2001 Recorded DTaP, unspecified formulation 2001 Recorded Lab Results Ambulatory Point of Care Results Bilirubin Urine Dipstick: Negative (12/24/23 14:51:00) Blood Urine Dipstick: Negative (12/24/23 14:51:00) Glucose Urine Dipstick: Negative (12/24/23 14:51:00) Ketones Urine Dipstick: Negative (12/24/23 14:51:00) Leukocytes Urine Dipstick: Negative (12/24/23 14:51:00) Nitrite Urine Dipstick: Negative (12/24/23 14:51:00) Protein Urine Dipstick: Negative (12/24/23 14:51:00) Specific [place] Urine Dipstick: 1.025 (12/24/23 14:51:00) Urine Appearance Urine Dipstick: Clear (12/24/23 14:51:00) Urine Color Urine Dipstick: Yellow (12/24/23 14:51:00) Urobilinogen Urine Dipstick: Normal 0.2-1 EU/dl (12/24/23 14:51:00) pH Urine Dipstick: 6 (12/24/23 14:51:00) Normal [facility] Comment on above: Result Comment: Elec tronically Signed By: Rani Vasquez\.br\Date and Time Signed: 12/24/23 15:06 EDT Ambulatory Visit Summaryon 0 11-10-2023 Ambulatory Visit Summary MARGARETH BRICENO :2000 Visit Date:11/10/2023 Ambulatory Visit Instructions Your Diagnosis Wheezing Cough Chest congestion Body mass index (BMI) of 19 or less in adult Smoker Your Care Team Attending Physician - Rani Vasquez Primary Care Physician - Rani Vasquez This Is Your Medications List albuterol (Albuterol (Eqv-ProAir HFA) 90 mcg/inh inhalation aerosol) Procedures Performed Extraction of wisdom tooth. Discharge Vitals Temperature (Tympanic) 37.0 ?C Heart Rate (Peripheral) 72 Respiratory Rate 18 Blood Pressure 102/64 Height 167.4 cm Height 66 in Weight 52.0 kg Weight 114.4 lb BMI 18.56 Medications What How Much When Why Instructions Unchanged albuterol (Albuterol (Eqv-ProAir HFA) 90 mcg/ inh inhalation aerosol) 2 Puffs Inhalation Every 6 hours Cough Fever Wheezing Allergies No Known Allergies Problems Ongoing - Any problem that you are currently receiving treatment for. Acid reflux Bloating Body mass index (BMI) of 19 or less in adult Chest congestion Chest discomfort Cough Diarrhea Dizziness Exposure to chlamydia Fatigue Fever Folliculitis High risk heterosexual behavior Sore of penis Stomach pain Wheezing Patient Survey You may receive a survey via text or e-mail asking about your office visit. Please share your experience with us by completing your survey. We appreciate your feedback and thank you for choosing us for your care. Normal [facility] Family Medicine Office/Clini c Noteon 11-10-2023 Family Medicine Office/Clinic Note HPI Staff Margareth is a 23 year old male presenting for acute sick visit Respiratory C/O: Onset: 1 weeks Body aches: no Chest congestion: yes feels short of breath Chills: no Cough: no Sputum production: yes Sore throat: no Ear complaints: yes popping Eye itching/watering: no Fever: no Headache: no Nasal congestion: yes Nasal discharge: yes clear Poor appetite: no Reduced activity: no Sinus pain/pressure: yes worse at night Sneezing: no Wheezing: yes Ill contacts: no Remedies tried: dayquil Questions/Concerns: in beginning had hot flashes, skin sensitive was only on Thursday last week History of Present Illness pt presents today for URI symptoms Review of Systems PHQ Score Initial Depression Screen Score: 0 SCORE Physical Exam Vitals & Measurements T: 37.0 ?C(Tympanic) HR: 72(Peripheral) RR: 18 BP: 102/64 SpO2: 98% HT: 66 in HT: 167.4 cm WT: 52.0 kg WT: 114.4 lb BMI: 18.56 General: alert, no acute distress ENMT: oral mucosa moist, no pharyngeal erythema or exudate Cardiovascular: regular rate and rhythm, normal peripheral perfusion Respiratory: Lungs expiratory wheezes, respirations non labored crackles Extremities: no deformity, no trauma Neurological: oriented x 4, LOC appropriate for age, CN II-XII intact, motor strength equal & normal bilaterally, speech normal Assessment/Plan 1. Wheezing (R06.2: Wheezing) wheezing noted throughout all lung mendiola. will order daily steroid inhaler, antibiotics and medrol dose pack. if this does not help will refer to lead manufacturing engineer. RTC f no improvement after completing antibiotics. Ordered: budesonide, = 2 inh, Inhalation, BID, # 1 EA, Refills(s) 11, Pharmacy: [facility], 167.4, cm, 11/10/23 13:34:00 EDT, Height/Length Dosing, 52, kg, 11/10/23 13:34:00 EDT, Weight Dosing levofloxacin, 500 mg = 1 tab(s), Oral, q24hr, X 7 day(s), # 7 tab(s), Refills(s) 0, Pharmacy: [facility], 167.4, cm, 11/10/23 13:34:00 EDT, Height/Length Dosing, 52, kg, 11/10/23 13:34:00 EDT, Weight Dosing methylPREDNISolone, = 1 packet(s), Oral, As Directed, as directed on package labeling, X 6 day(s), # 21 tab(s), Refills(s) 0, Pharmacy: [facility], 167.4, cm, 11/10/23 13:34:00 EDT, Height/Length Dosing, 52, kg, 11/10/23 13:34:00 EDT, Weight Dosing 2. Cough (R05.9: Cough, unspecified) pt has very deep productive cough Ordered: budesonide, = 2 inh, Inhalation, BID, # 1 EA, Refills(s) 11, Pharmacy: [facility], 167.4, cm, 11/10/23 13:34:00 EDT, Height/Length Dosing, 52, kg, 11/10/23 13:34:00 EDT, Weight Dosing levofloxacin, 500 mg = 1 tab(s), Oral, q24hr, X 7 day(s), # 7 tab(s), Refills(s) 0, Pharmacy: [facility], 167.4, cm, 11/10/23 13:34:00 EDT, Height/Length Dosing, 52, kg, 11/10/23 13:34:00 EDT, Weight Dosing methylPREDNISolone, = 1 packet(s), Oral, As Directed, as directed on package labeling, X 6 day(s), # 21 tab(s), Refills(s) 0, Pharmacy: [facility], 167.4, cm, 11/10/23 13:34:00 EDT, Height/Length Dosing, 52, kg, 11/10/23 13:34:00 EDT, Weight Dosing 3. Chest congestion (R09.89: Other specified symptoms and signs involving the circulatory and respiratory systems) chest congestion and rattling Ordered: budesonide, = 2 inh, Inhalation, BID, # 1 EA, Refills(s) 11, Pharmacy: [facility], 167.4, cm, 11/10/23 13:34:00 EDT, Height/Length Dosing, 52, kg, 11/10/23 13:34:00 EDT, Weight Dosing levofloxacin, 500 mg = 1 tab(s), Oral, q24hr, X 7 day(s), # 7 tab(s), Refills(s) 0, Pharmacy: [facility], 167.4, cm, 11/10/23 13:34:00 EDT, Height/Length Dosing, 52, kg, 11/10/23 13:34:00 EDT, Weight Dosing methylPREDNISolone, = 1 packet(s), Oral, As Directed, as directed on package labeling, X 6 day(s), # 21 tab(s), Refills(s) 0, Pharmacy: [facility], 167.4, cm, 11/10/23 13:34:00 EDT, Height/Length Dosing, 52, kg, 11/10/23 13:34:00 EDT, Weight Dosing 4. Body mass index (BMI) of 19 or less in adult (Z68.1: Body mass index [BMI] 19.9 or less, adult) BMI education complete Ordered: budesonide, = 2 inh, Inhalation, BID, # 1 EA, Refills(s) 11, Pharmacy: [facility], 167.4, cm, 11/10/23 13:34:00 EDT, Height/Length Dosing, 52, kg, 11/10/23 13:34:00 EDT, Weight Dosing levofloxacin, 500 mg = 1 tab(s), Oral, q24hr, X 7 day(s), # 7 tab(s), Refills(s) 0, Pharmacy: [facility], 167.4, cm, 11/10/23 13:34:00 EDT, Height/Length Dosing, 52, kg, 11/10/23 13:34:00 EDT, Weight Dosing methylPREDNISolone, = 1 packet(s), Oral, As Directed, as directed on package labeling, X 6 day(s), # 21 tab(s), Refills(s) 0, Pharmacy: [facility], 167.4, cm, 11/10/23 13:34:00 EDT, Height/Length Dosing, 52, kg, 11/10/23 13:34:00 EDT, Weight Dosing omeprazole, 40 mg = 1 cap(s), Oral, Daily, # 90 cap(s), Refills(s) 0, Pharmacy: [facility], 167.4, cm, 09/15/23 14:45:00 EST, Height/Length Dosing, 53.9, kg, 09/15/23 14:45:00 EST Alexi (more content not included)... Normal [facility] Comment on above: Result Comment: Elec tronically Signed By: Rani Vasquez\.br\Date and Time Signed: 11/10/23 13:55 EDT Ambulatory Visit Summaryon 0 09-24-2023 Ambulatory Visit Summary MARGARETH BRICENO :2000 Visit Date:09/24/2023 Ambulatory Visit Instructions Your Care Team Attending Physician - Rani Vasquez Primary Care Physician - Rani Vasquez This Is Your Medications List dicyclomine (dicyclomine 20 mg Tab) imiquimod topical (imiquimod topical 3.75% cream) omeprazole (omeprazole 40 mg Cap-DR) Procedures Performed Extraction of wisdom tooth. Discharge Vitals Temperature (Tympanic) 36.9 ?C Heart Rate (Peripheral) 88 Respiratory Rate 18 Blood Pressure 110/70 Height 167.4 cm Height 66 in Weight 51.4 kg Weight 113.08 lb BMI 18.34 Medications What How Much When Why Instructions New imiquimod topical (imiquimod topical 3.75% cream) Unknown, 0 Refill(s) Unchanged dicyclomine (dicyclomine 20 mg Tab) 1 Tablets By Mouth 4 times a day Chest discomfort Bloating Diarrhea Body mass index (BMI) of 19 or less in adult Acid reflux Duration: 10 Days Unchanged omeprazole (omeprazole 40 mg Cap-DR) 1 Capsules By Mouth Every day Chest discomfort Bloating Diarrhea Body mass index (BMI) of 19 or less in adult Acid reflux Allergies No Known Allergies Problems Ongoing - Any problem that you are currently receiving treatment for. Acid reflux Bloating Body mass index (BMI) of 19 or less in adult Chest discomfort Diarrhea Dizziness Exposure to chlamydia Fatigue Folliculitis High risk heterosexual behavior Sore of penis Stomach pain Patient Survey You may receive a survey via text or e-mail asking about your office visit. Please share your experience with us by completing your survey. We appreciate your feedback and thank you for choosing us for your care. Normal [facility] Family Medicine Office/Clini c Noteon 09-24-2023 Family Medicine Office/Clinic Note HPI Staff Margareth is a 23 year old male presenting for acute sick visit Respiratory C/O: Onset: 1 week Body aches: no in the beginning not having them now Chest congestion: yes Chills: yes Cough: yes started out productive now having dry cough Sputum production: no Sore throat: no Ear complaints: no better today did feel full few says ago Eye itching/watering: no Fever: no Headache: no Nasal congestion: yes Nasal discharge: no Poor appetite: no Reduced activity: no Sinus pain/pressure: yes Sneezing: no Wheezing: yes Ill contacts: no Remedies tried: dayquil Questions/Concerns: 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 History of Present Illness pt presents today for cough and congestion and fever Review of Systems PHQ Score Initial Depression Screen Score: 0 SCORE ROS - Provider Constitutional: yes fever, no chills, no sweats, no fatigue Respiratory: no shortness of breath, yes cough, no orthopnea, no wheezing. congestion Cardiovascular: no chest pain, no palpitations, no edema. Neurologic: no headache, no dizziness, no numbness, no weakness. Physical Exam Vitals & Measurements T: 36.9 ?C(Tympanic) HR: 88(Peripheral) RR: 18 BP: 110/70 SpO2: 96% HT: 66 in HT: 167.4 cm WT: 51.4 kg WT: 113.08 lb BMI: 18.34 General: alert, no acute distress ENMT: oral mucosa moist, no pharyngeal erythema or exudate Cardiovascular: regular rate and rhythm, normal peripheral perfusion Respiratory: Lungs expiratory wheezes, respirations non labored Extremities: no deformity, no trauma Neurological: oriented x 4, LOC appropriate for age, CN II-XII intact, motor strength equal & normal bilaterally, speech normal Assessment/Plan 1. Cough (R05.9: Cough, unspecified) pt has been coughing for about 1 week. coughing so hard he pulled a muscle in his lower abdomen. will order meds to treat infection and steroids as well. RTC as needed Ordered: albuterol, 2 puff(s), Inhalation, q6hr, 8.5 gm, Refill(s) 0, [facility], 167.4, cm, 09/24/23 11:21:00 EST, Height/Length Dosing, 51.4, kg, 09/24/23 11:21:00 EST, Weight Dosing azithromycin, = 1 packet(s), Oral, As Directed, as directed on package labeling, X 5 day(s), # 6 tab(s), Refills(s) 0, Pharmacy: [facility], 167.4, cm, 09/24/23 11:21:00 EST, Height/Length Dosing, 51.4, kg, 09/24/23 11:21:00 EST, Weight Dosing benzonatate, 200 mg = 1 cap(s), Oral, TID, X 7 day(s), # 21 cap(s), Refills(s) 0, Pharmacy: [facility], 167.4, cm, 09/24/23 11:21:00 EST, Height/Length Dosing, 51.4, kg, 09/24/23 11:21:00 EST, Weight Dosing methylPREDNISolone, = 1 packet(s), Oral, As Directed, as directed on package labeling, X 6 day(s), # 21 tab(s), Refills(s) 0, Pharmacy: [facility], 167.4, cm, 09/24/23 11:21:00 EST, Height/Length Dosing, 51.4, kg, 09/24/23 11:21:00 EST, Weight Dosing 2. Fever (R50.9: Fever, unspecified) pt states he gets cold then will break out in a sweat during the night Ordered: albuterol, 2 puff(s), Inhalation, q6hr, 8.5 gm, Refill(s) 0, [facility], 167.4, cm, 09/24/23 11:21:00 EST, Height/Length Dosing, 51.4, kg, 09/24/23 11:21:00 EST, Weight Dosing azithromycin, = 1 packet(s), Oral, As Directed, as directed on package labeling, X 5 day(s), # 6 tab(s), Refills(s) 0, Pharmacy: [facility], 167.4, cm, 09/24/23 11:21:00 EST, Height/Length Dosing, 51.4, kg, 09/24/23 11:21:00 EST, Weight Dosing benzonatate, 200 mg = 1 cap(s), Oral, TID, X 7 day(s), # 21 cap(s), Refills(s) 0, Pharmacy: [facility], 167.4, cm, 09/24/23 11:21:00 EST, Height/Length Dosing, 51.4, kg, 09/24/23 11:21:00 EST, Weight Dosing methylPREDNISolone, = 1 packet(s), Oral, As Directed, as directed on package labeling, X 6 day(s), # 21 tab(s), Refills(s) 0, Pharmacy: [facility], 167.4, cm, 09/24/23 11:21:00 EST, Height/Length Dosing, 51.4, kg, 09/24/23 11:21:00 EST, Weight Dosing 3. Wheezing (R06.2: Wheezing) wheezing noted through our all lung mendiola Ordered: albuterol, 2 puff(s), Inhalation, q6hr, 8.5 gm, Refill(s) 0, [facility], 167.4, cm, 09/24/23 11:21:00 EST, Height/Length Dosing, 51.4, kg, 09/24/23 11:21:00 EST, Weight Dosing azithromycin, = 1 packet(s), Oral, As Directed, as directed on package labeling, X 5 day(s), # 6 tab(s), Refills(s) 0, Pharmacy: [facility], 167.4, cm, 09/24/23 11:21:00 EST, Height/Length Dosing, 51.4, kg, 09/24/23 11:21:00 EST, Weight Dosing benzonatate, 200 mg = 1 cap(s), Oral, TID, X 7 day(s), # 21 cap(s), Refills(s) 0, Pharmacy: [facility], 167.4, cm, 09/24/23 11:21:00 EST, Height/Length Dosing, 51.4, kg, 09/24/23 11:21:00 EST, Weight Dosing methylPREDNISolone, = 1 packet(s), Oral, As Directed, as directed on package labeling, X 6 day(s), # 21 tab(s), Refills(s) 0, Pharmacy: [facility] (more content not included)... [facility] Comment on above: Result Comment: Elec tronically Signed By: Rani Vasquez\.br\Date and Time Signed: 09/24/23 11:37 EST Provider Letteron 09-24-2023 Provider Letter September 24, 2023 MARGARETH BRICENO [address] [place] [address] : 2000 To Whom It May Concern, Please excuse above patient from work. Date of Illness: From: 09/19/2023 To: 09/27/2023 May Return to Work On: 09/27/2023 Sincerely, DENISSE Ruano [address] [address] [facility] Family Medicine Office/Clini c Noteon 09-16-2023 Family Medicine Office/Clinic Note Chief Complaint stomach and chest pains HPI Staff Margareth is a 23 year old male presenting for acute visit Onset: 2 years Pt having stomach pains and chest pains on the left side. Saw acid painter in [place] 2021 who told him everything looked fine, but he may want to get one in [place]. Stomach upset/nausea has been present for years. Soft stools x 2 years. did not get a colonoscopy do to moving. History of Present Illness pt presents today with multiple complaints. soft stool, chest pain, bloating, genital warts Review of Systems PHQ Score Initial Depression Screen Score: 0 SCORE ROS - Provider Constitutional: no fever, no chills, no sweats, no fatigue Respiratory: no shortness of breath, no cough, no orthopnea, no wheezing. Cardiovascular: no chest pain, no palpitations, no edema. Neurologic: no headache, no dizziness, no numbness, no weakness. GI upset, bloating, soft stool, cramping Physical Exam Vitals & Measurements HR: 84(Peripheral) BP: 110/70 SpO2: 99% HT: 66 in HT: 167.4 cm WT: 53.9 kg WT: 118.58 lb BMI: 19.23 General: alert, no acute distress ENMT: oral mucosa moist, no pharyngeal erythema or exudate Cardiovascular: regular rate and rhythm, normal peripheral perfusion Respiratory: Lungs CTA, respirations non labored Extremities: no deformity, no trauma Neurological: oriented x 4, LOC appropriate for age, CN II-XII intact, motor strength equal & normal bilaterally, speech normal Assessment/Plan 1. Genital warts (A63.0: Anogenital (venereal) warts) pt has more areas and would like to treat with topical cream Ordered: imiquimod topical, 1 bora, Topical, Once a day (at bedtime), 15 gram, Refill(s) 1, wash hands before and after application apply in a thin film to the affected skin and rub in gently and completely, [facility], 167.4, cm, 09/15/23 14:45:00 EST, Height/Le... 2. Acid reflux (K21.9: Gastro-esophageal reflux disease without esophagitis) pt c/o burning, bloating and sometimes chest pain after eating. will order omeprazole. Ordered: dicyclomine, 20 mg = 1 tab(s), Oral, QID, X 10 day(s), # 40 tab(s), Refills(s) 0, Pharmacy: [facility], 167.4, cm, 09/15/23 14:45:00 EST, Height/Length Dosing, 53.9, kg, 09/15/23 14:45:00 EST, Weight Dosing omeprazole, 40 mg = 1 cap(s), Oral, Daily, # 90 cap(s), Refills(s) 0, Pharmacy: [facility], 167.4, cm, 09/15/23 14:45:00 EST, Height/Length Dosing, 53.9, kg, 09/15/23 14:45:00 EST, Weight Dosing 3. Bloating (R14.0: Abdominal distension (gaseous)) bentyll ordered. pt to return in 3-4 weeks to see if symptoms have improved. Ordered: dicyclomine, 20 mg = 1 tab(s), Oral, QID, X 10 day(s), # 40 tab(s), Refills(s) 0, Pharmacy: [facility], 167.4, cm, 09/15/23 14:45:00 EST, Height/Length Dosing, 53.9, kg, 09/15/23 14:45:00 EST, Weight Dosing omeprazole, 40 mg = 1 cap(s), Oral, Daily, # 90 cap(s), Refills(s) 0, Pharmacy: [facility], 167.4, cm, 09/15/23 14:45:00 EST, Height/Length Dosing, 53.9, kg, 09/15/23 14:45:00 EST, Weight Dosing 4. Chest discomfort (R07.89: Other chest pain) pt c/o chest tightness. discussed this could be from anxiety. will treat GI complaints and will consider starting lexapro and next visit for anxiety Ordered: dicyclomine, 20 mg = 1 tab(s), Oral, QID, X 10 day(s), # 40 tab(s), Refills(s) 0, Pharmacy: [facility], 167.4, cm, 09/15/23 14:45:00 EST, Height/Length Dosing, 53.9, kg, 09/15/23 14:45:00 EST, Weight Dosing omeprazole, 40 mg = 1 cap(s), Oral, Daily, # 90 cap(s), Refills(s) 0, Pharmacy: [facility], 167.4, cm, 09/15/23 14:45:00 EST, Height/Length Dosing, 53.9, kg, 09/15/23 14:45:00 EST, Weight Dosing 5. Diarrhea (R19.7: Diarrhea, unspecified) pt states he has not had a formed stool in a year. it is always soft. not watery but soft. was supposed to have colonoscopy in [place] but moved to [place] before it was done. may consider GI referral at next appointment Ordered: dicyclomine, 20 mg = 1 tab(s), Oral, QID, X 10 day(s), # 40 tab(s), Refills(s) 0, Pharmacy: [facility], 167.4, cm, 09/15/23 14:45:00 EST, Height/Length Dosing, 53.9, kg, 09/15/23 14:45:00 EST, Weight Dosing omeprazole, 40 mg = 1 cap(s), Oral, Daily, # 90 cap(s), Refills(s) 0, Pharmacy: [facility], 167.4, cm, 09/15/23 14:45:00 EST, Height/Length Dosing, 53.9, kg, 09/15/23 14:45:00 EST, Weight Dosing 6. Body mass index (BMI) of 19 or less in adult (Z68.1: Body mass index [BMI] 19.9 or less, adult) bmi education complete Ordered: dicyclomine, 20 mg = 1 tab(s), Oral, QID, X 10 day(s), # 40 tab(s), Refills(s) 0, Pharmacy: [facility], 167.4, cm, 09/15/23 14:45:00 EST, Height/Length Dosing, 53.9, kg, 09/15/23 14:45:00 EST, Weight Dosing omeprazole, 40 mg = 1 cap(s), Oral, Daily, # 90 cap(s), Refills(s) 0, Pharmacy: [facility], 167.4, cm, 09/15/23 14:45:00 EST, Height/Length Dosing, 53.9, kg, 02 (more content not included)... [facility] Comment on above: Result Comment: Elec tronically Signed By: Rani Vasquez\.br\Date and Time Signed: 09/16/23 08:24 EST Ambulatory Visit Summaryon 0 09-15-2023 Ambulatory Visit Summary MARGARETH BRICENO :2000 Visit Date:09/15/2023 Ambulatory Visit Instructions Your Diagnosis Chest discomfort Bloating Diarrhea Body mass index (BMI) of 19 or less in adult Acid reflux Your Care Team Attending Physician - Rani Vasquez Primary Care Physician - Rani Vasquez Procedures Performed Extraction of wisdom tooth. Discharge Vitals Heart Rate (Peripheral) 84 Blood Pressure 110/70 Height 167.4 cm Height 66 in Weight 53.9 kg Weight 118.58 lb BMI 19.23 Allergies No Known Allergies Problems Ongoing - Any problem that you are currently receiving treatment for. Acid reflux Bloating Body mass index (BMI) of 19 or less in adult Chest discomfort Diarrhea Dizziness Exposure to chlamydia Fatigue Folliculitis High risk heterosexual behavior Sore of penis Stomach pain Patient Survey You may receive a survey via text or e-mail asking about your office visit. Please share your experience with us by completing your survey. We appreciate your feedback and thank you for choosing us for your care. Normal [facility] Ambulatory Visit Summaryon 1 09-23-2022 Ambulatory Visit Summary MARGARETH BRICENO :2000 Visit Date:07/23/2023 Ambulatory Visit Instructions Your Diagnosis BMI less than 19,adult Smoker Your Care Team Attending Physician - Rani Vasquez Primary Care Physician - Rani Vasquez Procedures Performed Extraction of wisdom tooth. Discharge Vitals Temperature (Oral) 36.9 ?C Heart Rate (Peripheral) 82 Respiratory Rate 16 Blood Pressure 120/72 Height 167.4 cm Height 66 in Weight 52.90 kg Weight 116.38 lb BMI 18.88 Allergies No Known Allergies Problems Ongoing - Any problem that you are currently receiving treatment for. Diarrhea Dizziness Exposure to chlamydia Fatigue High risk heterosexual behavior Sore of penis Stomach pain Patient Survey You may receive a survey via text or e-mail asking about your office visit. Please share your experience with us by completing your survey. We appreciate your feedback and thank you for choosing us for your care. Normal [facility] Family Medicine Office/Clini c Noteon 07-23-2023 Family Medicine Office/Clinic Note HPI Staff Margareth is a 23 year old male presenting for acute visit Pt noticed bump on groin, last tested for STD 01/2023 and 03/05/23 was negative Noticed an area then found a couple more after he shaved and says he's thinking maybe genital warts, has a cauliflower appearance Bumps are not open and draining, not painful, a little bit of itchiness flu: refused History of Present Illness pt presents today with bumps of genital area. he noticed it when shaving Review of Systems PHQ Score Initial Depression Screen Score: 2 SCORE ROS - Provider Constitutional: no fever, no chills, no sweats, no fatigue Respiratory: no shortness of breath, no cough, no orthopnea, no wheezing. Cardiovascular: no chest pain, no palpitations, no edema. Neurologic: no headache, no dizziness, no numbness, no weakness. dry itchy area pubic area Physical Exam Vitals & Measurements T: 36.9 ?C(Oral) HR: 82(Peripheral) RR: 16 BP: 120/72 SpO2: 100% HT: 66 in HT: 167.4 cm WT: 52.90 kg WT: 116.38 lb BMI: 18.88 General: alert, no acute distress ENMT: oral mucosa moist, no pharyngeal erythema or exudate Cardiovascular: regular rate and rhythm, normal peripheral perfusion Respiratory: Lungs CTA, respirations non labored Extremities: no deformity, no trauma Neurological: oriented x 4, LOC appropriate for age, CN II-XII intact, motor strength equal & normal bilaterally, speech normal no warts or lesions noted. folliculitis and dry skin noted on exam Assessment/Plan 1. Folliculitis (L73.9: Follicular disorder, unspecified) dry raised hair follicles noted on exam. advised pt to stop shaving and use lotion for the dry skin irritation from shaving. no condyloma or warts noted on exam. RTC as needed 2. BMI less than 19,adult (Z68.1: Body mass index [BMI] 19.9 or less, adult) BMI education complete 3. Smoker (F17.200: Nicotine dependence, unspecified, uncomplicated) consider not smoking Follow-up No qualifying data available Problem List/Past Medical History Ongoing Diarrhea Dizziness Exposure to chlamydia Fatigue Folliculitis High risk heterosexual behavior Sore of penis Stomach pain Historical No qualifying data Procedure/Surgical History Extraction of wisdom tooth. Medications No active medications Allergies No Known Allergies Social History Alcohol Current, Beer, 1-2 times per month, Others hurt by drinking: No., 02/12/2023 Tobacco 10 or more cigarettes (1/2 pack or more)/day in last 30 days Tobacco Use:. Cigarettes, Ready to change: No. Household tobacco concerns: No., 07/23/2023 Family History Hypertension: Grandparent. Immunizations Vaccine Date Status Comments influenza virus vaccine, inactivated - Not Given Patient Refuses poliovirus vaccine, inactivated 02/23/2006 Recorded measles/mumps/rubella virus vaccine 02/23/2006 Recorded diphtheria/pertussis, acel/tetanus ped 02/23/2006 Recorded varicella virus vaccine 09/05/2002 Recorded Hib, unspecified formulation 09/05/2002 Recorded DTaP, unspecified formulation 09/05/2002 Recorded measles/mumps/rubella virus vaccine 02/23/2002 Recorded poliovirus vaccine, inactivated 2001 Recorded DTaP, unspecified formulation 2001 Recorded poliovirus vaccine, inactivated 2001 Recorded DTaP, unspecified formulation 2001 Recorded poliovirus vaccine, inactivated 2001 Recorded DTaP, unspecified formulation 2001 Recorded Normal [facility] Comment on above: Result Comment: Elec tronically Signed By: Rani Vasquez\.br\Date and Time Signed: 07/23/23 10:15 EST Lab Reportson 05-06-2023 Lab Reports [id number] Normal [facility] Ambulatory Visit Summaryon 0 04-13-2023 Ambulatory Visit Summary MARGAREHT BRICENO :2000 Visit Date:04/13/2023 Ambulatory Visit Instructions Your Diagnosis Diarrhea Fatigue Dizziness Stomach pain BMI less than 19,adult Smoker Your Care Team Attending Physician - Rani Vasquez Primary Care Physician - Rani Vasquez Discharge Vitals Heart Rate (Peripheral) 68 Respiratory Rate 18 Blood Pressure 110/74 Height 167.4 cm Height 66 in Weight 51.3 kg Weight 112.86 lb BMI 18.31 What to do next You Need to Complete the Following Clostridium Difficile PCR, Stool, Routine collect, 04/13/23, Order for future visit, Nurse collect, Diarrhea Invalid Interpretation Code Dizziness [facility] Amylaseon 04-13-2023 Amylase [Catalytic activity/Vol] 41 U/L Normal 25-157 [facility] Comment on above: Performed By: #### 1 [id number], 6138697, 6170170, 5695651, 8016530, 8729136, 3246294 ####[facility] [address] [place] [address] Auto Diffon 04-13-2023 Basophils/100 WBC (Bld) 0.5 % Normal 0.0-2.0 [facility] Comment on above: Order Comment: Order Added by Discern Expert. Performed By: #### 1 [id number], 0665795, 8055816, 6333738, 5856799, 5363240, 1278557 ####[address] [address] Basophils/Leukocytes Auto (Bld) [Pure # fraction] 0.0 E9/L Normal 0.0-0.2 [facility] Comment on above: Order Comment: Order Added by Discern Expert. Performed By: #### 1 1024750, 9235977, 7614029, 5013996, 7523132, 8351426, 8455575 ####[address] [address] Eosinophils/100 WBC (Bld) 1.8 % Normal 0.0-8.0 [facility] Comment on above: Order Comment: Order Added by Discern Expert. Performed By: #### 1 9591187, 0420736, 9594126, 2375232, 3871524, 9564851, 1821646 ####[address] [address] Eosinophils/Leukocyt es Auto (Bld) [Pure # fraction] 0.1 E9/L Normal 0.0-0.5 [facility] Comment on above: Order Comment: Order Added by Kem Expert. Performed By: #### 1 5866169, 5255890, 6998559, 7368333, 8150271, 6717822, 9070086 ####[address] [address] Lymphocytes/100 WBC (Bld) 24.0 % Normal 14.0-50.0 [facility] Comment on above: Order Comment: Order Added by Kem Expert. Performed By: #### 1 6027566, 0687034, 7114502, 0306821, 7716480, 4266401, 5543613 ####[address] [address] Lymphocytes/Leukocyt es Auto (Bld) [Pure # fraction] 1.7 E9/L Normal 1.0-4.0 [facility] Comment on above: Order Comment: Order Added by Discern Expert. Performed By: #### 1 8258347, 8621840, 5445213, 7174370, 1068427, 5949750, 8087446 ####[address] [address] Monocytes/100 WBC (Bld) 6.4 % Normal 4.0-14.0 [facility] Comment on above: Order Comment: Order Added by Discern Expert. Performed By: #### 1 0611653, 3682701, 3754262, 4407229, 8275141, 3725254, 5467895 ####[address] [address] Monocytes/Leukocytes Auto (Bld) [Pure # fraction] 0.4 E9/L Normal 0.2-1.0 [facility] Comment on above: Order Comment: Order Added by Kem Expert. Performed By: #### 1 1617193, 4524184, 3318346, 3855767, 4480524, 5988158, 2202071 ####[address] [address] Neutrophils/100 WBC (Bld) 67.3 % Normal 36.0-75.0 [facility] Comment on above: Order Comment: Order Added by Kem Expert. Performed By: #### 1 5257809, 6001425, 0806618, 4389333, 1820963, 8504201, 7705797 ####[address] [address] Neutrophils/Leukocyt es Auto (Bld) [Pure # fraction] 4.7 E9/L Normal 2.0-7.5 [facility] Comment on above: Order Comment: Order Added by Kem Expert. Performed By: #### 1 2031297, 5720936, 1067644, 1523210, 3752039, 0911153, 9569975 ####[address] [address] CBC w/ Auto Diffon 3 Erythrocyte distribution width (RBC) [Ratio] 12.5 % Normal 10.9-14.2 [facility] Comment on above: Performed By: #### 1 1849086, 4462782, 4659878, 1733974, 8771831, 4986790, 2410644 ####[address] [place] [address] Hematocrit (Bld) [Volume fraction] 47.6 % Normal 37.7-49.0 [facility] Comment on above: Performed By: #### 1 8823830, 8159062, 3286780, 8026156, 6256873, 7310177, 6723514 ####[address] [place] [address] Hemoglobin (Bld) [Mass/Vol] 16.7 g/dL Normal 13.5-17.5 [facility] Comment on above: Performed By: #### 1 3052356, 0498062, 7464016, 0824023, 9644509, 9717366, 0913681 ####[address] [address] MCH (RBC) [Entitic mass] 32.7 pg Normal 27.0-34.0 [facility] Comment on above: Performed By: #### 1 4844124, 5938882, 8248873, 4425407, 5259149, 3599924, 4673114 ####[address] [address] MCHC (RBC) [Mass/Vol] 35.0 g/dL Normal 31.4-36.0 [facility] Comment on above: Performed By: #### 1 8777672, 6760980, 7191827, 5931026, 3735128, 9518119, 5456213 ####[address] [address] MCV (RBC) [Entitic vol] 93.4 fL Normal 80.0-100.0 [facility] Comment on above: Performed By: #### 1 0445799, 2190434, 5489696, 3097128, 5081250, 4227969, 4911712 ####[facility] [address] [place] [address] Platelet mean volume (Bld) [Entitic vol] 7.9 fL Normal 6.4-10.8 [facility] Comment on above: Performed By: #### 1 3456327, 4676802, 2301880, 1569159, 0459265, 2493630, 2349171 ####[facility] [address] [place] [address] Platelets (Bld) [#/Vol] 185.0 E9/L Normal 150.0-500.0 [facility] Comment on above: Performed By: #### 1 7014921, 0780339, 1499218, 8153938, 2392303, 5689463, 4556866 ####[address] [place] [address] RBC (Bld) [#/Vol] 5.1 E12/L Normal 4.3-5.9 [facility] Comment on above: Performed By: #### 1 6285944, 7341037, 6824746, 9134911, 5456835, 5902451, 4546983 ####[facility] [address] [place] [address] WBC corrected for nucl RBC Auto (Bld) [#/Vol] 7.0 E9/L Normal 4.0-11.0 [facility] Comment on above: Performed By: #### 1 2932248, 6803777, 0467093, 5211355, 1433669, 6132657, 2140819 ####[facility] [address] [place] [address] CHEMISTRYOrdered By: SYSTEM SYSTEM on 04-13-2023 Albumin [Mass/Vol] 4.6 g/dL Normal 3.3 - 5.0 gm/dL [facility] Albumin/Globulin [Mass ratio] 1.7 {ratio} Normal 1.1 - 2.2 [facility] ALP [Catalytic activity/Vol] 57 [iU]/d Normal 21 - 98 Int._Unit/L [facility] ALT No additional P-5'-P [Catalytic activity/Vol] 19 [iU]/d Normal 6 - 46 Int._Unit/L [facility] Amylase [Catalytic activity/Vol] 41 U/L Normal 25 - 157 unit/L [facility] Anion gap [Moles/Vol] 9 mmol/L Normal 6 - 16 mEq/L [facility] AST [Catalytic activity/Vol] 25 [iU]/d Normal 5 - 43 Int._Unit/L [facility] Bilirubin [Mass/Vol] 0.6 mg/dL Normal 0.0 - 1 .1 mg/dL [facility] Calcium [Mass/Vol] 9.5 mg/dL Normal 8.9 - 11. 1 mg/dL [facility] Chloride [Moles/Vol] 110 mmol/L Normal 101 - 1 11 mmol/L [facility] CO2 [Moles/Vol] 25 mmol/L Normal 21 - 31 mmol/L [facility] Creatinine [Mass/Vol] 0.9 mg/dL Normal 0.5 - 1.3 mg/dL [facility] GFR/1.73 sq M.predicted among non-blacks MDRD (S/P/Bld) [Vol rate/Area] 124 mL/min/1.73 m2 Normal >=59mL/min/1 .73 m2 [facility] S Globulin (S) [Mass/Vol] 2.7 g/dL Normal 1.4 - 4.0 gm/dL [facility] Glucose [Mass/Vol] 80 mg/dL Normal 55 - 199 mg/dL [facility] Lipase [Catalytic activity/Vol] 28 U/L Normal 13 - 58 unit/L [facility] Potassium [Moles/Vol] 3.9 mmol/L Normal 3.5 - 5.3 mmol/L [facility] Protein [Mass/Vol] 7.3 g/dL Normal 6.0 - 7.8 gm/dL [facility] Sodium [Moles/Vol] 140 mmol/L Normal 135 - 145 mmol/L [facility] TSH Qn 0.63 m[IU]/L Normal 0.34 - 5.60 mcIU/mL [facility] Urea nitrogen [Mass/Vol] 15 mg/dL Normal 5 - 21 mg/dL [facility] Urea nitrogen/Creatinine [Mass ratio] 17 mg/mg Normal 10 - 20 [facility] [place]isol CMPon 04-13-2023 Albumin [Mass/Vol] 4.6 g/dL Normal 3.3-5.0 [facility] Comment on above: Performed By: #### 1 5703463, 0399810, 0393312, 8689009, 6792429, 9010845, 6883816 ####[facility] [address] [place] [address] Albumin/Globulin (S) [Mass conc ratio] 1.7 Normal 1.1-2.2 [facility] Comment on above: Performed By: #### 1 7919387, 5837485, 8355855, 8162736, 3985395, 4446245, 6813802 ####[facility] [address] [place] [address] ALP [Catalytic activity/Vol] 57 Int._Unit/L Normal 21-98 [facility] Comment on above: Performed By: #### 1 9698444, 0477159, 2357151, 8378292, 9195510, 4328559, 0532848 ####[facility] [address] [place] [address] ALT No additional P-5'-P [Catalytic activity/Vol] 19 Int._Unit/L Normal 6-46 [facility] Comment on above: Performed By: #### 1 4718496, 3724422, 7304264, 5812431, 5620856, 8425613, 4429787 ####[facility] [address] [place] [address] Anion gap [Moles/Vol] 9 mmol/L Normal 6-16 [facility] Comment on above: Performed By: #### 1 9580773, 0668666, 4598178, 3784809, 3221327, 5794712, 1021042 ####[facility] [address] [place] [address] AST [Catalytic activity/Vol] 25 Int._Unit/L Normal 5-43 [facility] Comment on above: Performed By: #### 1 7372748, 4640275, 0849906, 5140014, 4753026, 2011945, 7500224 ####[facility] [address] [place] [address] Bilirubin [Mass/Vol] 0.6 mg/dL Normal 0.0-1.1 [facility] Comment on above: Performed By: #### 1 5853958, 8426626, 1156922, 6528137, 8939352, 7945478, 9423782 ####[facility] [address] [place] [address] Calcium [Mass/Vol] 9.5 mg/dL Normal 8.9-11.1 [facility] Comment on above: Performed By: #### 1 4101211, 3342582, 4430601, 8746822, 1148145, 2764043, 2486088 ####[facility] [address] [place] [address] Chloride [Moles/Vol] 110 mmol/L Normal 101-111 [facility] Comment on above: Performed By: #### 1 3431900, 9942707, 1481744, 4099065, 4889435, 1364512, 2739575 ####[facility] [address] [place] [address] CO2 [Moles/Vol] 25 mmol/L Normal 21-31 [facility] Comment on above: Performed By: #### 1 0772849, 6019375, 6465441, 3747363, 0886394, 6826321, 9485833 ####[facility] [address] [place] [address] Creatinine [Mass/Vol] 0.9 mg/dL Normal 0.5-1.3 [facility] Comment on above: Performed By: #### 1 3919373, 3996129, 5250270, 7324399, 4737313, 4418087, 3331920 ####[facility] [address] [place] [address] Globulin (S) [Mass/Vol] 2.7 g/dL Normal 1.4-4.0 [facility] Comment on above: Performed By: #### 1 1631426, 4503621, 9915204, 6183980, 3855183, 9105671, 6728037 ####[facility] [address] [place] [address] Glucose [Mass/Vol] 80 mg/dL Normal 55-199 [facility] Comment on above: Result Comment: If t his glucose result represents a fasting glucose, interpretation should refer to the following reference range: 55-99 mg/dL Performed By: #### 1 3458661, 7252345, 4296040, 9167125, 4592488, 0403948, 4502797 ####[facility] [address] [place] [address] Potassium [Moles/Vol] 3.9 mmol/L Normal 3.5-5.3 [facility] Comment on above: Performed By: #### 1 1872604, 8218746, 2766188, 0765531, 6580582, 3591024, 8501529 ####[facility] [address] [place] [address] Protein [Mass/Vol] 7.3 g/dL Normal 6.0-7.8 [facility] Comment on above: Performed By: #### 1 1458099, 8672670, 4098833, 1820794, 5433087, 0341826, 1651546 ####[facility] [address] [place] [address] Sodium [Moles/Vol] 140 mmol/L Normal 135-145 [facility] Comment on above: Performed By: #### 1 7390867, 4132675, 6427763, 1877030, 0947016, 1962637, 2575328 ####[facility] [address] [place] [address] Urea nitrogen [Mass/Vol] 15 mg/dL Normal 5-21 [facility] Comment on above: Performed By: #### 1 2346758, 9460325, 3237491, 1273064, 1471006, 4227089, 0238254 ####[facility] [address] [place] [address] Urea nitrogen/Creatinine [Mass ratio] 17 No Units Normal - [facility] Comment on above: Performed By: #### 1 9164487, 7028487, 4305717, 9680226, 0117737, 0595354, 7677671 ####[facility] [address] [place] [address] Family Medicine Office/Clini c Noteon 04-13-2023 Family Medicine Office/Clinic Note HPI Staff Margareth is a 23 year old male presenting for acute visit Stomach pain: Onset: 1 year intermittent worse within the last week Location: Middle lower Duration: 1-2 hours Characteristics: dull/ache almost like hunger pain but nothing sounds good Aggravated by: none Relieved by: sometimes eating does help but hard to eat due to no appetite Do you have any of the following symptoms? Have you ever had an EGD? no Vomiting that will not stop:no Vomiting blood:no losing weight:no no appetite:yes Bloody or dark-colored, tarry bowel movements:no Pain or difficulty with swallowing:no Questions/Concerns: pt concerned he has worms, for 6 months has noticed small white areas in his bowel movements. Has had diarrhea for the past week 3-4 times a day. 1-1.5 years pt feels he is urinating 15-20 times a day states is drinking 50 oz of water a day a red bull and protein shakes. Waking up 2-3 times a night to pee. 1-1.5 years will take a nap every other day and when he wakes up he feels light headed, dizzy, palpations and will feel really drained. History of Present Illness pt presents today with multiple complaints including diarrhea, stomach cramping and frequent urination Review of Systems PHQ Score Initial Depression Screen Score: 0 ROS - Provider Constitutional: no fever, no chills, no sweats, no fatigue Respiratory: no shortness of breath, no cough, no orthopnea, no wheezing. Cardiovascular: no chest pain, no palpitations, no edema. Neurologic: no headache, no dizziness, no numbness, no weakness. Physical Exam Vitals & Measurements HR: 68(Peripheral) RR: 18 BP: 110/74 SpO2: 95% HT: 66 in HT: 167.4 cm WT: 51.3 kg WT: 112.86 lb BMI: 18.31 General: alert, no acute distress ENMT: oral mucosa moist, no pharyngeal erythema or exudate Cardiovascular: regular rate and rhythm, normal peripheral perfusion Respiratory: Lungs CTA, respirations non labored Extremities: no deformity, no trauma Neurological: oriented x 4, LOC appropriate for age, CN II-XII intact, motor strength equal & normal bilaterally, speech normal Assessment/Plan 1. Diarrhea (R19.7: Diarrhea, unspecified) pt presents today c/o diarrhea for about 1 week. 3-4 times per day. pt states he has also notices something white in his stool. pt drinks several red bulls per day. and also eats fast food and protein shakes several times per day. will order stool culture. pt was provided collection cup to bring back. encouraged pt to decrease red bull intake and discussed that the increased protein may be causing issues with his bowels. all questions answered. RTC as needed Ordered: Amylase Level CBC w/ Auto Diff Clostridium Difficile PCR Comprehensive Metabolic Panel Lipase Level O & P Exam, Routine Rotavirus Ab Thyroid Stimulating Hormone 2. Fatigue (R53.83: Other fatigue) CBC and TSH ordered Ordered: Amylase Level CBC w/ Auto Diff Clostridium Difficile PCR Comprehensive Metabolic Panel Lipase Level O & P Exam, Routine Rotavirus Ab Thyroid Stimulating Hormone 3. Dizziness (R42: Dizziness and giddiness) will do labs today Ordered: Amylase Level CBC w/ Auto Diff Clostridium Difficile PCR Comprehensive Metabolic Panel Lipase Level O & P Exam, Routine Rotavirus Ab Thyroid Stimulating Hormone 4. Stomach pain (R10.9: Unspecified abdominal pain) stool sample ordered Ordered: Amylase Level CBC w/ Auto Diff Clostridium Difficile PCR Comprehensive Metabolic Panel Lipase Level O & P Exam, Routine Rotavirus Ab Thyroid Stimulating Hormone 5. BMI less than 19,adult (Z68.1: Body mass index [BMI] 19.9 or less, adult) BMI education complete Ordered: Amylase Level CBC w/ Auto Diff Clostridium Difficile PCR Comprehensive Metabolic Panel Lipase Level O & P Exam, Routine Rotavirus Ab Thyroid Stimulating Hormone 6. Smoker (F17.200: Nicotine dependence, unspecified, uncomplicated) consider not smoking Ordered: Amylase Level CBC w/ Auto Diff Clostridium Difficile PCR Comprehensive Metabolic Panel Lipase Level O & P Exam, Routine Rotavirus Ab Thyroid Stimulating Hormone Follow-up No qualifying data available Problem List/Past Medical History Ongoing Diarrhea Dizziness Exposure to chlamydia Fatigue High risk heterosexual behavior Sore of penis Stomach pain Historical No qualifying data Medications No active medications Allergies No Known Allergies Social History Alcohol Current, Beer, 1-2 times per month, Others hurt by drinking: No., 02/12/2023 Tobacco 5-9 cigarettes (between 1/4 to 1/2 pack)/day in last 30 days Tobacco Use:. Cigarettes, Ready to change: No. Household tobacco concerns: No., 04/13/2023 Family History Hypertension: Grandparent. Immunizations Vaccine Date Status poliovirus vaccine, inactivated 02/23/2006 Recorded measles/mumps/rubella virus vaccine 02/23/2006 Recorded diphtheria/pertussis, acel/tetanu (more content not included)... Normal [facility] Comment on above: Result Comment: Elec tronically Signed By: Rani Vasquez\.br\Date and Time Signed: 04/13/23 09:59 EDT HEMATOLOGYOrdered By: SYSTEM SYSTEM on 04-13-2023 Basophils/100 WBC (Bld) 0.5 % Normal 0.0 - 2.0 % [facility] HemeAutoSS Basophils/Leukocytes Auto (Bld) [Pure # fraction] 0.0 E9/L Normal 0.0 - 0.2 E9/L [facility] HemeAutoSS Eosinophils/100 WBC (Bld) 1.8 % Normal 0.0 - 8.0 % [facility] HemeAutoSS Eosinophils/Leukocyt es Auto (Bld) [Pure # fraction] 0.1 E9/L Normal 0.0 - 0.5 E9/L [facility] HemeAutoSS Lymphocytes/100 WBC (Bld) 24.0 % Normal 14.0 - 50.0 % [facility] HemeAutoSS Lymphocytes/Leukocyt es Auto (Bld) [Pure # fraction] 1.7 E9/L Normal 1.0 - 4.0 E9/L [facility] HemeAutoSS Monocytes/100 WBC (Bld) 6.4 % Normal 4.0 - 14.0 % [facility] HemeAutoSS Monocytes/Leukocytes Auto (Bld) [Pure # fraction] 0.4 E9/L Normal 0.2 - 1.0 E9/L [facility] HemeAutoSS Neutrophils/100 WBC (Bld) 67.3 % Normal 36.0 - 75.0 % [facility] HemeAutoSS Neutrophils/Leukocyt es Auto (Bld) [Pure # fraction] 4.7 E9/L Normal 2.0 - 7.5 E9/L FT HemeAutoSS HEMATOLOGYOrdered By: Flex Mota on 04-13-2023 Erythrocyte distribution width (RBC) [Ratio] 12.5 % Normal 10.9 - 14.2 % [facility] HemeAutoSS Hematocrit (Bld) [Volume fraction] 47.6 % Normal 37.7 - 49.0 % [facility] HemeAutoSS Hemoglobin (Bld) [Mass/Vol] 16.7 g/dL Normal 13.5 - 17.5 gm/dL [facility] HemeAutoSS MCH (RBC) [Entitic mass] 32.7 pg Normal 27.0 - 34.0 pg [facility] HemeAutoSS MCHC (RBC) [Mass/Vol] 35.0 g/dL Normal 31.4 - 36.0 gm/dL [facility] HemeAutoSS MCV (RBC) [Entitic vol] 93.4 fL Normal 80.0 - 100.0 fL [facility] HemeAutoSS Platelet mean volume (Bld) [Entitic vol] 7.9 fL Normal 6.4 - 10.8 fL [facility] HemeAutoSS Platelets (Bld) [#/Vol] 185.0 E9/L Normal 150.0 - 500.0 E9/L [facility] HemeAutoSS RBC (Bld) [#/Vol] 5.1 E12/L Normal 4.3 - 5.9 E12/L [facility] HemeAutoSS WBC corrected for nucl RBC Auto (Bld) [#/Vol] 7.0 E9/L Normal 4.0 - 11.0 E9/L [facility] [place] [facility] Lipase Levelon 04-13-2023 Lipase [Catalytic activity/Vol] 28 U/L Normal 13-58 [facility] Comment on above: Performed By: #### 1 [id number], 6005120, 9234524, 5073627, 4312620, 4413640, 2341896 ####[facility] [address] [place] [address] Provider Letteron 04-13-2023 Provider Letter April 13, 2023 [place] [address] : 2000 To Whom It May Concern, Please excuse above patient from work. Date of Illness: From: 04/09/2023 To: 04/13/2023 May Return to Work On:04/14/2023 Restrictions: _ Comments: _ Sincerely, [address] [id number] Normal [facility] Provider Letter April 13, [address] [place] [address] : 2000 To Whom It May Concern, Please excuse above patient from work. Date of Illness: From: 04/09/2023 To: 04/12/2023 May Return to Work On: 04/13/2023 Restrictions: _ Comments: _ Sincerely, [address] [address] Normal [facility] Comment on above: Other Comment: Put w gallo dates on excuse TSHon 04-13-2023 TSH Qn 0.63 m[IU]/L Normal 0.34-5.60 [facility] Comment on above: Performed By: #### 1 [id number], [id number], [id number], [id number], [id number] ####[facility] [address] [place] [address] eGFRon 04-13-2023 GFR/1.73 sq M.predicted among non-blacks MDRD (S/P/Bld) [Vol rate/Area] 124 mL/min/1.73 m2 Normal >=59 [facility] Comment on above: Order Comment: Order added by Discern Expert. Result Comment: Manager Php sayda kidney disease could be indicated at eGFR's of less than 60 mL/min/1.73m2. Kidney failure is indicated at less than 15 mL/min/1.73m2. Performed By: #### 1 [id number], [id number], [id number], [id number], [id number], [id number] ####[facility] [address] [place] [address] Reminderson 03-20-2023 Reminders - From: Rani Vasquez To: [facility] - Clinical; Sent: 03/09/2023 10:43:52 EDT Show up: 03/09/2023 10:44:00 EDT Subject: Ambulatory Reminder Due Date/Time: 03/10/2023 10:43:00 EDT let Margareth know HIV and syphilis results were negative. Results: Date Result Name Value Ref Range 03/05/2023 14:53 HIV Screen 4th Generation w/Rfx Non Reactive (Non Reactive - ) 03/05/2023 14:53 RPR Qual Non Reactive (Non Reactive - ) notified patient results were negative Normal [facility] HIV Screen 4th Generation wR fxon 03-07-2023 HIV 1+2 Ab+HIV1 p24 Ag IA Ql Non-Reactive Invalid Interpretation Code Non Reactive [facility] Comment on above: Result Comment: HIV Negative HIV-1/HIV-2 antibodies and HIV-1 p24 antigen were NOT detected. There is no laboratory evidence of HIV infection. Performed at: [employer] [id number] PhD Aurn Roach Performed By: #### 1 [id number], [id number] ####[facility] [address] [place] [address] RPR with Conf Rfxon 03-07-20 23 Reagin Ab RPR Ql (S) Non-Reactive Invalid Interpretation Code Non Reactive [facility] Comment on above: Result Comment: Perf ormed at: [employer] [id number] PhD Arun Roach Performed By: #### 1 [id number], [id number] ####[facility] [address] [place] [address] Nurse Consultation Noteon Nurse Consultation Note Physical Exam pt here for blood draw, pt tolerated well Assessment/Plan High risk heterosexual behavior, (Z72.51: High risk heterosexual behavior)High risk sexual behavior Screening for HIV (human immunodeficiency virus) (Z11.4: Encounter for screening for human immunodeficiency virus [HIV]) Medications No active medications Allergies No Known Allergies Immunizations Vaccine Date Status poliovirus vaccine, inactivated 02/23/2006 Recorded measles/mumps/rubella virus vaccine 02/23/2006 Recorded diphtheria/pertussis, acel/tetanus ped 02/23/2006 Recorded varicella virus vaccine 09/05/2002 Recorded Hib, unspecified formulation 09/05/2002 Recorded DTaP, unspecified formulation 09/05/2002 Recorded measles/mumps/rubella virus vaccine 02/23/2002 Recorded poliovirus vaccine, inactivated 2001 Recorded DTaP, unspecified formulation 2001 Recorded poliovirus vaccine, inactivated 2001 Recorded DTaP, unspecified formulation 2001 Recorded poliovirus vaccine, inactivated 2001 Recorded DTaP, unspecified formulation 2001 Recorded Normal [facility] Reminderson 02-24-2023 Reminders - From: Rani Vasquez To: [facility] - Clinical; Sent: 02/17/2023 09:07:33 EDT Show up: 02/17/2023 09:08:00 EDT Subject: Ambulatory Reminder Due Date/Time: 02/18/2023 09:07:00 EDT Let Margareth know STD labs are negative Results: Date Result Name Value Ref Range 02/12/2023 15:34 Chlamydia by NELSY Negative (Negative - ) 02/12/2023 15:34 Gonococcus by NELSY Negative (Negative - ) 02/12/2023 15:34 Trich vag by NELSY Negative (Negative - ) From: Maddy Charles (B - Clinical) To: Rani Vasquez; Sent: 02/18/2023 08:47:06 EDT Show up: 02/18/2023 08:47:00 EDT Subject: RE: Ambulatory Reminder advised patient STD labs were negative, pt would like to know if he could be checked for HIV From: Rani Vasquez To: [facility] - Clinical; Sent: 02/20/2023 14:58:57 EDT Show up: 02/20/2023 14:58:00 EDT Subject: RE: Ambulatory Reminder yes. I can order HIV lab work. he will have to come in for lab draw for nurse visit From: Maddy Charles (B - Clinical) To: Rani Vasquez; Sent: 02/24/2023 10:22:48 EDT Show up: 02/24/2023 10:22:00 EDT Subject: RE: Ambulatory Reminder notified patient, he stated he will call back to set up appointment for nurse visit to have HIV blood draw. Could you place lab order in future orders. Normal [facility] Chlam/GC/Trich,NAAon 023 C. trachomatis rRNA NELSY+probe Ql (Unsp spec) Negative Invalid Interpretation Code Negative [facility] Comment on above: Performed By: #### 1 [id number] ####[facility] [address] [place] [address] N. gonorrhoeae rRNA NELSY+probe Ql (Unsp spec) Negative Invalid Interpretation Code Negative [facility] Comment on above: Performed By: #### 1 [id number] ####[facility] [address] [place] [address] T. vaginalis rRNA NELSY+probe Ql (Unsp spec) Negative Invalid Interpretation Code Negative [facility] Comment on above: Result Comment: Perf ormed at: =G [facility] [address] [id number] MD William Dunbar Performed By: #### 1 [id number] ####[facility] [address] [place] [address] Family Medicine Office/Clini c Noteon 02-17-2023 Family Medicine Office/Clinic Note HPI Staff Alexis is a 22 year old male presenting to [facility] Establish Care: History: Any previous diagnosis: Anxiety History of seeing any specialist: 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 1 month ago had a few areas pop up on the shaft of his penis would like re checked 1 week ago got a bite on right side of leg there are 5-6 bites area red and c/o itching 6 months intermittently left testicle there will be a dull pain last 10-15mintues mostly with standing up for long periods pain pt states he would like to discuss how to put on more weight. States he has put himself on a 2800 calorie diet and goes to the gym. History of Present Illness pt presents today with c/o red sores on penis, possible chlamydia exposure and bites on his right upper thign Review of Systems PHQ Score Initial Depression Screen Score: 0 ROS - Provider Constitutional: no fever, no chills, no sweats, no fatigue Respiratory: no shortness of breath, no cough, no orthopnea, no wheezing. Cardiovascular: no chest pain, no palpitations, no edema. Neurologic: no headache, no dizziness, no numbness, no weakness. red rash on penis does not hurt or itch Physical Exam Vitals & Measurements HR: 66(Peripheral) RR: 18 BP: 110/60 SpO2: 99% HT: 66 in HT: 167.4 cm WT: 52.1 kg WT: 114.62 lb BMI: 18.59 General: alert, no acute distress ENMT: oral mucosa moist, no pharyngeal erythema or exudate Cardiovascular: regular rate and rhythm, normal peripheral perfusion Respiratory: Lungs CTA, respirations non labored Extremities: no deformity, no trauma Neurological: oriented x 4, LOC appropriate for age, CN II-XII intact, motor strength equal & normal bilaterally, speech normal Assessment/Plan 1. High risk heterosexual behavior (Z72.51: High risk heterosexual behavior) pt presents today for std testing. had chlamydia in the past and is concerned he may have come into contact with it again. will send urine for testing. all questions answered. RTC as needed Ordered: Chlam/GC/Trich,NELSY 2. Exposure to chlamydia (Z20.2: Contact with and (suspected) exposure to infections with a predominantly sexual mode of transmission) urine sent for testing 3. Sore of penis (N48.89: Other specified disorders of penis) folliculitis noted on shaft, no oozing or ulcerations noted. the areas do not itch and are not painful Ordered: Chlam/GC/Trich,NLESY 4. Body mass index (BMI) less than 19 (Z68.1: Body mass index [BMI] 19.9 or less, adult) BMI education complete Ordered: Chlam/GC/Trich,NELSY 5. Smoker (F17.200: Nicotine dependence, unspecified, uncomplicated) consider not smoking Ordered: Chlam/GC/Trich,NELSY Follow-up No qualifying data available Problem List/Past Medical History Ongoing Exposure to chlamydia High risk heterosexual behavior Sore of penis Historical No qualifying data Medications No active medications Allergies No Known Allergies Social History Alcohol Current, Beer, 1-2 times per month, Others hurt by drinking: No., 02/12/2023 Tobacco 5-9 cigarettes (between 1/4 to 1/2 pack)/day in last 30 days Tobacco Use:. Cigarettes, Household tobacco concerns: No., 02/12/2023 Family History Hypertension: Grandparent. Immunizations Vaccine Date Status poliovirus vaccine, inactivated 02/23/2006 Recorded measles/mumps/rubella virus vaccine 02/23/2006 Recorded diphtheria/pertussis, acel/tetanus ped 02/23/2006 Recorded varicella virus vaccine 09/05/2002 Recorded Hib, unspecified formulation 09/05/2002 Recorded DTaP, unspecified formulation 09/05/2002 Recorded measles/mumps/rubella virus vaccine 02/23/2002 Recorded poliovirus vaccine, inactivated 2001 Recorded DTaP, unspecified formulation 2001 Recorded poliovirus vaccine, inactivated 2001 Recorded DTaP, unspecified formulation 2001 Recorded poliovirus vaccine, inactivated 2001 Recorded DTaP, unspecified formulation 2001 Recorded Normal [facility] Comment on above: Result Comment: Elec tronically Signed By: Rani Vasquez\.br\Date and Time Signed: 02/17/23 11:39 EDT Ambulatory Visit Summaryon 0 02-12-2023 Ambulatory Visit Summary MARGARETH BRICENO :2000 Visit Date:02/12/2023 Ambulatory Visit Instructions Your Diagnosis High risk heterosexual behavior Exposure to chlamydia Sore of penis Body mass index (BMI) less than 19 Smoker Your Care Team Attending Physician - Rani Vasquez Primary Care Physician - Rani Vasquez Discharge Vitals Heart Rate (Peripheral) 66 Respiratory Rate 18 Blood Pressure 110/60 Height 167.4 cm Height 66 in Weight 52.1 kg Weight 114.62 lb BMI 18.59 Allergies No Known Allergies Problems Ongoing - Any problem that you are currently receiving treatment for. Exposure to chlamydia High risk heterosexual behavior Sore of penis [facility] Chlamydia/GC/Trich NAAon Chlamydia/GC/Trich NELSY Positive Critically abnormal Negative [facility] sportif225 Other Chlamydia/GC/Trich NELSY Negative Negative [facility] sportif225 Other Chlamydia Trachomotis, NELSY Positive Critically abnormal Negative [facility] Comment on above: Order Comment: Reaso n for Exam High risk sexual behavior, unspecified type Performed By: #### G CCHLAMTRI #### [facility] , Neisseria Gonorrhoeae, NELSY Negative Normal Negative [facility] Comment on above: Order Comment: Reaso n for Exam High risk sexual behavior, unspecified type Performed By: #### G CCHLAMTRI #### [facility] , Trichomonas NELSY Negative Normal Negative [facility] Comment on above: Order Comment: Reaso n for Exam High risk sexual behavior, unspecified type Result Comment: Perf ormed at: =G - [facility] [address] [place] [id number] Brewery Technician: Bettina Thomas MD, Phone: [phone] PERFORMED BY: [address] [place] [address] PATHOLOGIST SALVAGE WORKER STIVEN GRIMALDO M.D. Performed By: #### G CCHLAMTRI #### [facility] , Urinalysis - AUTOMATEDon Appearance (U) clear [employer] Other Bilirubin Ql (U) Negative [employer] Other Color (U) dark yellow [employer] Other Glucose Ql (U) 100mg [place] Other Hemoglobin Ql (U) Negative [employer] Other Ketones Ql (U) Negative [employer] Other Leukocyte esterase Test strip Ql (U) Negative [employer] Other Nitrite Ql (U) Negative [employer] Other pH (U) 6.5 [pH] [employer] Other Protein Ql (U) trace [employer] Other Specific gravity (U) [Rel density] 1.020 [employer] Other Urobilinogen (U) [Mass/Vol] 1.0 mg/dL [facility] Other Urinalysis - AUTOMATED [facility] Other CBC W Auto Differential pane l (Bld)on 08-27-2022 Basophils (Bld) [#/Vol] 0.03 10*3/uL Normal <0.11 [facility] Comment on above: Order Comment: Speci men Type: BLOOD SPECIMEN Ordering Facility: [facility] Address: [address] [place] [id number] Performed By: #### 5 7021-8 #### [facility] CLIA [id number] [address] [place] [address] Basophils/100 WBC (Bld) 0.4 % Normal [facility] Comment on above: Order Comment: Speci men Type: BLOOD SPECIMEN Ordering Facility: [facility] Address: [address] [address] Performed By: #### 5 7021-8 #### [facility] CLIA [id number] [address] [place] [address] Differential cell count method Nom (Bld) Auto Normal [facility] Comment on above: Order Comment: Speci men Type: BLOOD SPECIMEN Ordering Facility: [facility] Address: [address] [address] Performed By: #### 5 7021-8 #### [facility] CLIA [id number] [address] [place] [address] Eosinophils (Bld) [#/Vol] 0.06 10*3/uL Normal <0.46 [facility] Comment on above: Order Comment: Speci men Type: BLOOD SPECIMEN Ordering Facility: [facility] Address: [address] [address] Performed By: #### 5 7021-8 #### [facility] CLIA [id number] [address] [place] [address] Eosinophils/100 WBC (Bld) 0.7 % Normal [facility] Comment on above: Order Comment: Speci men Type: BLOOD SPECIMEN Ordering Facility: [facility] Address: [address] [place] [address] Performed By: #### 5 7021-8 #### [facility] CLIA [id number] [address] [place] [address] Erythrocyte distribution width (RBC) [Ratio] 11.6 % Normal 11.5-15.0 [facility] Comment on above: Order Comment: Speci men Type: BLOOD SPECIMEN Ordering Facility: [facility] Address: [address] [place] [address] Performed By: #### 5 7021-8 #### [facility] CLIA [id number] [address] [place] [address] Hematocrit (Bld) [Volume fraction] 48.2 % Normal 39.0-51.0 [facility] Comment on above: Order Comment: Speci men Type: BLOOD SPECIMEN Ordering Facility: [facility] Address: [address] [address] Performed By: #### 5 7021-8 #### [facility] CLIA [id number] [address] [place] [address] Hemoglobin (Bld) [Mass/Vol] 17.2 g/dL High 13.0-17.0 [facility] Comment on above: Order Comment: Speci men Type: BLOOD SPECIMEN Ordering Facility: [facility] Address: [address] [address] Performed By: #### 5 7021-8 #### [facility] CLIA [id number] [address] [place] [address] Immature granulocytes (Bld) [#/Vol] 0.03 10*3/uL Normal <0.10 [facility] Comment on above: Order Comment: Speci men Type: BLOOD SPECIMEN Ordering Facility: [facility] Address: [address] [address] Performed By: #### 5 7021-8 #### [facility] CLIA [id number] [address] [place] [address] Immature granulocytes/100 WBC (Bld) 0.4 % Normal [facility] Comment on above: Order Comment: Speci men Type: BLOOD SPECIMEN Ordering Facility: [facility] Address: [address] Performed By: #### 5 7021-8 #### [facility] CLIA [id number] [address] [place] [address] Lymphocytes (Bld) [#/Vol] 1.82 10*3/uL Normal 1.00-4.00 [facility] Comment on above: Order Comment: Speci men Type: BLOOD SPECIMEN Ordering Facility: [facility] Address: [address] Performed By: #### 5 7021-8 #### [facility] CLIA [id number] [address] [place] [address] Lymphocytes/100 WBC (Bld) 21.4 % Normal [facility] Comment on above: Order Comment: Speci men Type: BLOOD SPECIMEN Ordering Facility: [facility] Address: [address] [place] [address] Performed By: #### 5 7021-8 #### [facility] CLIA [id number] [address] [place] [address] MCH (RBC) [Entitic mass] 32.2 pg Normal 26.0-34.0 [facility] Comment on above: Order Comment: Speci men Type: BLOOD SPECIMEN Ordering Facility: [facility] Address: [address] [place] [address] Performed By: #### 5 7021-8 #### [facility] CLIA [id number] [address] [place] [address] MCHC (RBC) [Mass/Vol] 35.7 g/dL Normal 30.5-36.0 [facility] Comment on above: Order Comment: Speci men Type: BLOOD SPECIMEN Ordering Facility: [facility] Address: [address] [place] [address] Performed By: #### 5 7021-8 #### [facility] CLIA [id number] [address] [place] [address] MCV (RBC) [Entitic vol] 90.3 fL Normal 80.0-100.0 [facility] Comment on above: Order Comment: Speci men Type: BLOOD SPECIMEN Ordering Facility: [facility] Address: [address] [place] [address] Performed By: #### 5 7021-8 #### [facility] CLIA [id number] [address] [place] [address] Monocytes (Bld) [#/Vol] 0.55 10*3/uL Normal <0.87 [facility] Comment on above: Order Comment: Speci men Type: BLOOD SPECIMEN Ordering Facility: [facility] Address: [address] [address] Performed By: #### 5 7021-8 #### [facility] CLIA [id number] [address] [place] [address] Monocytes/100 WBC (Bld) 6.5 % Normal [facility] Comment on above: Order Comment: Speci men Type: BLOOD SPECIMEN Ordering Facility: [facility] Address: [address] [address] Performed By: #### 5 7021-8 #### [facility] CLIA [id number] [address] [place] [address] Neutrophils (Bld) [#/Vol] 6.02 10*3/uL Normal 1.45-7.50 [facility] Comment on above: Order Comment: Speci men Type: BLOOD SPECIMEN Ordering Facility: [facility] Address: [address] [address] Performed By: #### 5 7021-8 #### [facility] CLIA [id number] [address] [place] [address] Neutrophils/100 WBC (Bld) 70.6 % Normal [facility] Comment on above: Order Comment: Speci men Type: BLOOD SPECIMEN Ordering Facility: [facility] Address: [address] [address] Performed By: #### 5 7021-8 #### [facility] CLIA [id number] [address] [place] [address] Nucleated RBC (Bld) [#/Vol] 10*3/uL Normal <0.01 [facility] Comment on above: Order Comment: Speci men Type: BLOOD SPECIMEN Ordering Facility: [facility] Address: [address] [address] Performed By: #### 5 7021-8 #### [facility] CLIA [id number] [address] [place] [address] Nucleated RBC/100 WBC (Bld) [Ratio] 0.0 /100 WBC Normal [facility] Comment on above: Order Comment: Speci men Type: BLOOD SPECIMEN Ordering Facility: [facility] Address: [address] [address] Performed By: #### 5 7021-8 #### [facility] CLIA [id number] [address] [place] [address] Platelet mean volume (Bld) [Entitic vol] 8.9 fL Low 9.0-12.7 [facility] Comment on above: Order Comment: Speci men Type: BLOOD SPECIMEN Ordering Facility: [facility] Address: [address] [address] Performed By: #### 5 7021-8 #### [facility] CLIA [id number] [address] [place] [address] Platelets (Bld) [#/Vol] 195 10*3/uL Normal 150-400 [facility] Comment on above: Order Comment: Speci men Type: BLOOD SPECIMEN Ordering Facility: [facility] Address: [address] [address] Performed By: #### 5 7021-8 #### [facility] CLIA [id number] [address] [place] [address] RBC (Bld) [#/Vol] 5.34 10*6/uL Normal 4.20-6.00 [facility] Comment on above: Order Comment: Speci men Type: BLOOD SPECIMEN Ordering Facility: [facility] Address: [address] Performed By: #### 5 7021-8 #### [facility] CLIA [id number] [address] [place] [address] WBC (Bld) [#/Vol] 8.51 10*3/uL Normal 3.70-11.00 [facility] Comment on above: Order Comment: Speci men Type: BLOOD SPECIMEN Ordering Facility: [facility] Address: [address] [place], [place] [address] Performed By: #### 5 7021-8 #### [facility] CLIA [id number] [address] [place], [place] [id number] CNOVSPon 08-27-2022 CNOVSP Visit (SP) Office ([place]) JACQUESMARGARETH MEREDITH ([id number]) 2 M Date Time Provider Department 08/27/22 3:00 PM SHAYNA BLUM During your visit today, we recorded the following information about you: Temperature Pulse Respiration Blood pressure 97.8 degrees 75/minute 16/minute 115/53 Weight Height 51.8 kg 1.702 m Shayna Blum APRN.POLE LIFT OPERATOR 08/29/2022 12:05 PM Signed NAME: Margareth Briceno CLINIC NO.: [id number] DATE OF SERVICE: August 27, 2022 (Eder) Some elements in this clinic note that are critical to medical decision making have been carefully reviewed and included from a prior clinic note dated: May 16, 2022 (Dr. Velasquez) Referring Provider: Dr. Lalit Mendez Additional Clinicians involved in Margareth Amalia Briceno's care: DIAGNOSIS: Elevated iron ASSESSMENT: 22 year old man with current tobacco use and apparent secondary polycythemia presenting with concern for hemochromatosis with elevated iron levels. Since he has been giving blood regularly, it is hard to determine what his iron saturations may have been originally, however, his ferritin has never really been elevated and therefore he most likely does not have an issue with iron metabolism. I see a bigger issue with secondary polycythemia but this is directly related to his tobacco use. His symptoms are largely related to anxiety with respect to tachycardia, palpitations and subsequent dizziness. PLAN: Follow up in [address] Velasquez please. Will notify patient of iron studies and lab results from today. - HPI: CASE HISTORY: 04/26/2022 laboratories: Iron 187 03/29/2022 laboratories: Drug screen negative, CBC: 6.9 > 16.6/46.3 < 186. CMP: No clinically significant abnormalities 03/29/2022 ER visit for abdominal pain, palpitations, tachycardia, anxiety attack. 02/21/2022 ferritin 114 Updated Visit, August 27, 2022: Margareth Briceno returns for scheduled follow-up. Since his last visit there has been no significant medical changes. He denies bleeding and abnormal bruising. No fever, chills, night sweats or signs/symptoms of infection. He denies cough, shortness of breath and other pulmonary complaints. He continues to smoke approximately 1 pack/day. Initial Visit, May 16, 2022: Margareth Briceno presents today Hematology and Oncology evaluation. He is a 22 year old male who is accompanied by his mother Yumiko for work-up of iron overload. He recently moved from [place] and notes that in July 2021 his iron level was high and therefore he started giving blood. In January his iron was 240 and again gave more blood and then had recent laboratories which I have tried to summarize above. Does not appear that his ferritin level has been elevated and prior available laboratories. He has a prior history of substance abuse and so has moved to the area, is working, and has limited his social life in order to abstain. In compensatory manner, he smokes regularly. Reviewing his laboratories reveals mild polycythemia either related to his age or his tobacco use. He notes multiple symptoms of tachycardia, dizziness and presyncopal episodes. He has become increasingly anxious that iron deposition may be causing some of the symptoms. I have reassured him as much as possible and encouraged him to continue abstaining from his prior history of substance abuse. I also educated him regarding iron deposition and noted that since his ferritin level has never been elevated, he is unlikely to have issues or concern for hemochromatosis. He can stop giving blood in we can observe him more carefully and see if his ferritin level rises. - REVIEW OF SYSTEMS Per HPI and otherwise negative by full review of organ systems. - ECOG PERFORMANCE STATUS: 0 PHYSICAL EXAMINATION: Vitals: BP 115/53 Pulse 75 Temp (Src) 97.8 (Temporal) Resp 16 Ht 5' 7.008 (1.70m) Wt 114 lb 3.2 oz (51.8kg) SpO2 98% BMI 17.88 kg/(m2). Body surface area is 1.56 meters squared. Exam limited to gross visualization where appropriate due to COVID-19. Gen.: This is an age-appropriate patient in no acute distress. Head: Appears atraumatic with no visible lesions. Eyes: Pupils equally round and reactive to light, extraocular muscles are intact. Neck: Supple. Mouth: Masked. Respiratory: Appears to be respiring comfortably. Neurologic: Nonfocal to gross visualization. Alert and oriented ?3. Psychiatric: No evidence of inappropriate anxiety or depression. Skin: Visible areas of skin without rash, lesions, wounds or petechiae. (more content not included)... Normal [facility] Comprehensive metabolic 2000 panelon 08-27-2022 Albumin [Mass/Vol] 5.1 g/dL High 3.9-4.9 [facility] Comment on above: Order Comment: Speci men Type: BLOOD SPECIMEN [facility] Facility[facility] Address: [address] [address] Performed By: #### 2 4323-8 #### [facility] CLIA [id number] [address] [place] [address] 33321 ALP [Catalytic activity/Vol] 82 U/L Normal 38-113 [facility] Comment on above: Order Comment: Speci men Type: BLOOD SPECIMEN [facility] Facility[facility] Address: [address] [address] Performed By: #### 2 4323-8 #### [facility] CLIA [id number] [address] [place] [address] 13978 ALT [Catalytic activity/Vol] 15 U/L Normal 10-54 [facility] Comment on above: Order Comment: Speci men Type: BLOOD SPECIMEN [facility] Facility[facility] Address: [address] [address] Performed By: #### 2 4323-8 #### [facility] CLIA [id number] [address] [place] [address] 20621 Anion gap [Moles/Vol] 8 mmol/L Low 9-18 [facility] Comment on above: Order Comment: Speci men Type: BLOOD SPECIMEN [facility] Facility[facility] Address: [address] [address] Performed By: #### 2 4323-8 #### [facility] CLIA [id number] [address] [place] [address] 03924 AST [Catalytic activity/Vol] 21 U/L Normal 14-40 [facility] Comment on above: Order Comment: Speci men Type: BLOOD SPECIMEN [facility] Facility: [facility] Address: [address] [address] Performed By: #### 2 4323-8 #### [facility] CLIA [id number] [address] [place] [address] 58394 Bilirubin [Mass/Vol] 0.3 mg/dL Normal 0.2-1.3 [facility] Comment on above: Order Comment: Speci men Type: BLOOD SPECIMEN [facility] Facility[facility] Address: [address] [address] Performed By: #### 2 4323-8 #### [facility] CLIA [id number] [address] [place] [address] 65233 Calcium [Mass/Vol] 10.1 mg/dL Normal 8.5-10.2 [facility] Comment on above: Order Comment: Speci men Type: BLOOD SPECIMEN [facility] Facility[facility] Address: [address] [address] Performed By: #### 2 4323-8 #### [facility] CLIA [id number] [address] [place] [address] 81452 Chloride [Moles/Vol] 103 mmol/L Normal 97-105 [facility] Comment on above: Order Comment: Speci men Type: BLOOD SPECIMEN [facility] Facility[facility] Address: [address] [address] Performed By: #### 2 432-8 #### [facility] CLIA [id number] [address] [place] [address] 74013 CO2 [Moles/Vol] 27 mmol/L Normal 22-30 [facility] Comment on above: Order Comment: Speci men Type: BLOOD SPECIMEN [facility] Facility: [facility] Address: [address] [address] Performed By: #### 2 4323-8 #### [facility] CLIA [id number] [address] [place] [address] 74336 Creatinine [Mass/Vol] 0.88 mg/dL Normal 0.73-1.22 [facility] Comment on above: Order Comment: Speci men Type: BLOOD SPECIMEN [facility] Facility: [facility] Address: [address] [address] Performed By: #### 2 4323-8 #### [facility] CLIA [id number] [address] [place] [address] 07139 ESTIMATED GLOMERULAR FILTRATION RATE 125 mL/min/1.73m??? Normal >=60 [facility] Comment on above: Order Comment: Krys centeno Type: BLOOD SPECIMEN Ordering Facility: [facility] Address: [place] [address] Result Comment: Sabiha mated Glomerular Filtration Rate (eGFR) is calculated using the 2020 CKD-EPI creatinine equation. This equation utilizes serum creatinine, sex, and age as parameters. The creatinine assay has traceable calibration to isotope dilution-mass spectrometry. Refer to KDIGO guidelines for clinical interpretation. In patients with unstable renal function, e.g. those with acute kidney injury, the eGFR may not accurately reflect actual GFR. Performed By: #### 2 4323-8 #### [facility] CLIA [id number] [address] [place] [address] 72399 Glucose [Mass/Vol] 82 mg/dL Normal 74-99 [facility] Comment on above: Order Comment: Krys centeno Type: BLOOD SPECIMEN Ordering Facility: [facility] Address: [address] [id number] Result Comment: The [place] Diabetes Association (ADA) provides guidance for cutoff values for fasting glucose and random glucose. The ADA defines fasting as no caloric intake for at least 8 hours. Fasting plasma glucose results between 100 to 125 mg/dL indicate increased risk for diabetes (prediabetes). Fasting plasma glucose results greater than or equal to 126 mg/dL meet the criteria for diagnosis of diabetes. In the absence of unequivocal hyperglycemia, results should be confirmed by repeat testing. In a patient with classic symptoms of hyperglycemia or hyperglycemic crisis, random plasma glucose results greater than or equal to 200 mg/dL meet the criteria for diagnosis of diabetes. Reference: Standards of Medical Care in Diabetes 2016, [place] [employer] Association. Diabetes Care. 2016.39(Suppl 1). Performed By: #### 2 4323-8 #### [facility] CLIA [id number] [address] [place] [address] 91224 Potassium [Moles/Vol] 4.3 mmol/L Normal 3.7-5.1 [facility] Comment on above: Order Comment: Krys centeno Type: BLOOD SPECIMEN [facility] Facility[facility] Address: [address] [address] Performed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 his right eye. Right Ear: External ear normal. Left Ear: External ear normal. Nose: Nose normal. Comments: No nasal septal hematoma or deviation. Mouth/Throat: Pharynx: Oropharynx is clear. Comments: Midface is stable. Eyes: Extraocular Movements: Extraocular movements intact. Conjunctiva/sclera: Conjunctivae normal. Pupils: Pupils are equal, round, and reactive to light. Comments: Denies any diplopia or visual issues. No evidence of entrapment. No pain with extraocular movement. Cardiovascular: Rate and Rhythm: Regular rhythm. Tachycardia present. Pulses: Normal pulses. Pulmonary: Effort: Pulmonary effort is normal. No respiratory distress. Breath sounds: Normal breath sounds. No wheezing, rhonchi or rales. Chest: Chest wall: No tenderness. Abdominal: General: Abdomen is flat. There is no distension. Palpations: Abdomen is soft. Tenderness: There is no abdominal tenderness. There is no guarding or rebound. Musculoskeletal: General: No tenderness or deformity. Normal range of motion. Cervical back: Normal range of motion and neck supple. No rigidity or tenderness. Right lower leg: No edema. Left lower leg: No edema. Comments: No tenderness to his chest, torso, abdomen and pelvis nor his extremities. Pelvis is stable. No midline back tenderness. Skin: General: Skin is warm and dry. Capillary Refill: Capillary refill takes less than 2 seconds. Coloration: Skin is not pale. Findings: Bruising present. Neurological: Comments: Moving extremities spontaneously. GCS 15. No focal deficits appreciable. Diagnostic Testing ED Labs Ordered and Reviewed - No data to display Procedures ED Course / Clinical Impression ED Course as of 07/06/22 0719 Tae Hfuf's Documentation Sun Jul 06, 2022 0334 IMPRESSION: No acute intracranial abnormality. Right faci (more content not included)... Normal [facility] Ethanol SerPl-mCncon 022 Ethanol [Mass/Vol] 245 mg/dL High <11 [facility] Comment on above: Order Comment: Speci men Type: BLOOD SPECIMEN [facility] Address: [address] [place] [address] [place] [address] Result Comment: Valu es > 80 mg/dL may indicate intoxication Performed By: #### 5 643-2 #### [facility] CLIA [id number] Lipase SerPl-cCncon 07-06-20 22 Lipase [Catalytic activity/Vol] 23 U/L Normal 16-61 [facility] Comment on above: Order Comment: Specsangita centeno Type: BLOOD SPECIMENOrdering Facility: [facility] Address: [address] [place] [address] Performed By: #### 2 4323-8, 3040-3 ####[facility] LABORATORYCLIA [id number] [address] PT panel Coag (PPP)on 2021 INR Coag (PPP) [Relative time] 1.0 {INR} Normal 0.9-1.3 [facility] Comment on above: Order Comment: Specsangita centeno Type: BLOOD SPECIMEN [facility] Address: [address] [place] [address] Result Comment: Natasha min K Antagonist (VKA) Therapeutic Range: INR 2 to 3 (Target INR of 2.5) Note: For patients treated with VKA drugs, such as warfarin, the [place] [employer] 2012 Guideline recommends a therapeutic INR range of 2 to 3 (target INR of 2.5). This recommendation includes high-risk patients with antiphospholipid syndrome with previous arterial or venous thromboembolism, current-generation mechanical or bioprosthetic aortic heart valve replacement. Note: Patients with mechanical aortic valve replacement and additional risk factors for thromboembolic events (atrial fibrillation, previous thromboembolism, LV dysfunction, hypercoagulable conditions) or an older generation mechanical AVR (i.e., ball in-Cage) or any mechanical MVR should have a INR therapeutic range of 2.5 to 3.5 (target INR of 3). Kvng GH, et al. Chest 2012, 141:7S-47S Nathan ESCAMILLA et al. [facility] 2017, 70: 252-289 Performed By: #### 3 4528-0, 86497-0 #### [facility] CLIA [id number] [place] PT Coag (PPP) [Time] 10.8 s Normal 9.7-13.0 [facility] Comment on above: Order Comment: Speci men Type: BLOOD SPECIMEN [facility] Address: [address] [place] [address] Performed By: #### 3 4528-0, 23659-1 #### [facility] CLIA [id number] [address] [place] [address] [place] TOX SCREEN ROUT URon 022 Amphetamines Confirm (U) [Mass/Vol] Negative Normal Negative [facility] Comment on above: Order Comment: Speci men Type: URINE SPECIMEN [facility] Address: [address] [place] [address] Result Comment: Cuto ff threshold at 1000 ng/mL. Performed By: #### U TOX2 #### [facility] CLIA [id number] [address] [place] [address] [place] BARBITURATES, URINE Negative Normal Negative [facility] Comment on above: Order Comment: Speci men Type: URINE SPECIMEN [facility] Address: [address] [place] [address] Result Comment: Cuto ff threshold at 200 ng/mL. Performed By: #### U TOX2 #### [facility] CLIA [id number] [address] [place] [address] [place] BENZODIAZEPINES, UR Negative Normal Negative [facility] Comment on above: Order Comment: Speci men Type: URINE SPECIMEN [facility] Address: [address] [place] [address] Result Comment: Cuto ff threshold at 200 ng/mL. Performed By: #### U TOX2 #### [facility] CLIA [id number] [address] [place] [address] [place] CANNABINOIDS,URINE Negative Normal Negative [facility] Comment on above: Order Comment: Speci men Type: URINE SPECIMEN [facility] Address: [address] [place] [address] Result Comment: Cuto ff threshold at 50 ng/mL. Performed By: #### U TOX2 #### [facility] CLIA [id number] [address] [place] [address] [place] Cocaine Ql (U) Negative Normal Negative [facility] Comment on above: Order Comment: Speci men Type: URINE SPECIMEN [facility] Address: [address] [place] [address] Result Comment: Cuto ff threshold at 300 ng/mL. Performed By: #### U TOX2 #### [facility] CLIA [id number] [address] [place] [address] [place] Ethanol (U) [Mass/Vol] 266 mg/dL High <11 [facility] Comment on above: Order Comment: Speci men Type: URINE SPECIMEN [facility] Address: [address] [place] [address] Performed By: #### U TOX2 #### [facility] CLIA [id number] [address] [place] [address] [place] Opiates Screen Ql (U) Negative Normal Negative [facility] Comment on above: Order Comment: Speci men Type: URINE SPECIMEN [facility] Address: [address] [place] [address] Result Comment: Cuto ff threshold at 300 ng/mL. Performed By: #### U TOX2 #### [facility] CLIA [id number] [address] [place] [address] [place] oxyCODONE cutoff Screen (U) [Mass/Vol] Negative Normal Negative [facility] Comment on above: Order Comment: Speci men Type: URINE SPECIMEN [facility] Address: [address] [place] [address] Result Comment: Cuto ff threshold at 100 ng/mL. Performed By: #### U TOX2 #### [facility] CLIA [id number] [address] [place] [address] [place] Phencyclidine Ql (U) Negative Normal Negative [facility] Comment on above: Order Comment: Speci men Type: URINE SPECIMEN [facility] Address: [address] [place] [address] Result Comment: Cuto ff threshold at 25 ng/mL. Performed By: #### U TOX2 #### [facility] CLIA [id number] TYPE + SCREENon 07-06-2022 ABO A Normal [facility] Comment on above: Order Comment: Speci men Type: BLOOD SPECIMENOrdering Facility: [facility] Address: [address] [place] [address] Performed By: #### T SCR ####[facility] BANKCLIA [id number] [address] HISTORICAL AB SCR STATUS Negative [facility] Comment on above: Order Comment: Speci men Type: BLOOD SPECIMENOrdering Facility: [facility] Address: [address] [place] [address] Performed By: #### T SCR ####[facility] BANKCLIA [id number] [address] Rh Nom (Bld) Positive [facility] Comment on above: Order Comment: Speci men Type: BLOOD SPECIMENOrdering Facility: [facility] Address: [address] [place] [address] Performed By: #### T SCR ####[facility] BANKCLIA [id number] [address] TYPE AND SCREEN EXPIRATION 07/09/2022 23:59 Normal [facility] Comment on above: Order Comment: Speci men Type: BLOOD SPECIMENOrdering Facility: [facility] Address: [address] [place] [address] Performed By: #### T SCR ####[facility] BANKCLIA [id number] [address] [place] Urinalysis complete panel (U )on 07-06-2022 Bilirubin Ql (U) Negative Normal Negative [facility] Comment on above: Order Comment: Speci men Type: URINE SPECIMEN [facility] Address: [address] [address] Performed By: #### 2 4356-8 #### [facility] CLIA [id number] [address] [place] [address] [place] Clarity (Unsp spec) Clear Normal Clear [facility] Comment on above: Order Comment: Speci men Type: URINE SPECIMEN [facility] Address: [address] [address] Performed By: #### 2 4356-8 #### [facility] CLIA [id number] [address] [place] [address] [place] Color (U) Colorless Normal Yellow [facility] Comment on above: Order Comment: Speci men Type: URINE SPECIMEN [facility] Address: [address] [place] [address] Performed By: #### 2 4356-8 #### [facility] CLIA [id number] [address] [place] [address] [place] Glucose Test strip (U) [Mass/Vol] Trace Abnormal Negative [facility] Comment on above: Order Comment: Speci men Type: URINE SPECIMEN [facility] Address: [address] [address] Performed By: #### 2 4356-8 #### [facility] CLIA [id number] [address] [place] [address] [place] Hemoglobin Ql (U) Negative Normal Negative [facility] Comment on above: Order Comment: Speci men Type: URINE SPECIMEN [facility] Address: [address] [address] Performed By: #### 2 4356-8 #### [facility] CLIA [id number] [address] [place] [address] [place] Ketones Ql (U) Negative Normal Negative [facility] Comment on above: Order Comment: Speci men Type: URINE SPECIMEN [facility] Address: [address] [address] Performed By: #### 2 4356-8 #### [facility] CLIA [id number] Leukocyte esterase Test strip Ql (U) Negative Normal Negative [facility] Comment on above: Order Comment: Speci men Type: URINE SPECIMEN [facility] Address: [address] [place] [address] Performed By: #### 2 4356-8 #### [facility] CLIA [id number] [address] [place] [address] [place] Nitrite Ql (U) Negative Normal Negative [facility] Comment on above: Order Comment: Speci men Type: URINE SPECIMEN [facility] Address: [address] [place] [address] Performed By: #### 2 4356-8 #### [facility] CLIA [id number] [address] [place] [address] [place] pH (U) 6.5 [pH] Normal 5.0-8.0 [facility] Comment on above: Order Comment: Speci men Type: URINE SPECIMEN [facility] Address: [address] [place] [address] Performed By: #### 2 4356-8 #### [facility] CLIA [id number] [address] [place] [address] [place] Protein (U) [Mass/Vol] Negative Normal Negative [facility] Comment on above: Order Comment: Speci men Type: URINE SPECIMEN [facility] Address: [address] [place] [address] Performed By: #### 2 4356-8 #### [facility] CLIA [id number] [address] [place] [address] [place] RBC LM.HPF (Urine sed) [#/Area] 0-3 /HPF Normal 0-3 /HPF [facility] Comment on above: Order Comment: Speci men Type: URINE SPECIMEN [facility] Address: [address] [place] [address] Performed By: #### 2 4356-8 #### [facility] CLIA [id number] [address] [place] [address] [place] Specific gravity (U) [Rel density] 1.008 Normal 1.005-1.030 [facility] Comment on above: Order Comment: Speci men Type: URINE SPECIMEN [facility] Address: [address] [place] [address] Performed By: #### 2 4356-8 #### [facility] CLIA [id number] [address] [place] [address] [place] Urobilinogen Ql (U) Negative Normal Negative [facility] Comment on above: Order Comment: Speci men Type: URINE SPECIMEN [facility] Address: [address] [place] [address] Performed By: #### 2 4356-8 #### [facility] CLIA [id number] [address] [place] [address] [place] WBC LM.HPF (Urine sed) [#/Area] 0-5 /HPF Normal 0-5 /HPF [facility] Comment on above: Order Comment: Speci men Type: URINE SPECIMEN Ordering Facility: [facility] Address: [address] [place] [address] Performed By: #### 2 4356-8 #### [facility] CLIA [id number] [address] [place] [address] [place] XR CHEST 1V FRONTAL PORTon 1 09-06-2021 XR CHEST 1V FRONTAL PORT * * *Final Report* * * DATE OF EXAM: Jul 06 2022 3:43AM FVX [id number] - XR CHEST 1V FRONTAL PORT / PROCEDURE REASON: Chest pain, nonspecific * * * * Physician Interpretation * * * * EXAMINATION: CHEST RADIOGRAPH (PORTABLE SINGLE VIEW AP) Exam Date/Time: 07/06/2022 3:43 AM CLINICAL HISTORY: Chest pain, nonspecific, Polytrauma, blunt MQ: XCPR_5 Comparison: None RESULT: Lines, tubes, and devices: None. Lungs and pleura: No focal airspace opacity, pleural effusion, or pneumothorax. Cardiomediastinal silhouette: Normal. Other: No osseous abnormality identified. IMPRESSION: No injury identified. Field Mechanic: ASHER Transcribe Date/Time: Jul 06 2022 3:44A Dictated by : CAR PEREZ MD This examination was interpreted and the report reviewed and electronically signed by: CAR PEREZ MD on Jul 06 2022 3:47AM EST [id number] Normal [facility] aPTT PPPon 07-06-2022 aPTT Coag (PPP) [Time] 26.2 s Normal 23.0-32.4 [facility] Comment on above: Order Comment: Speci men Type: BLOOD SPECIMEN Ordering Facility: [facility] Address: [address] [address] Performed By: #### 3 4528-0, 59196-3 #### [facility] CLIA [id number] CBC W Auto Differential pane l (Bld)on 05-16-2022 Basophils (Bld) [#/Vol] 0.03 10*3/uL Normal <0.11 [facility] Comment on above: Order Comment: Speci men Type: BLOOD SPECIMEN Ordering Facility: [facility] Address: [address] [address] Performed By: #### 5 7021-8, 93915-1 #### [facility] CLIA [id number] [address] [place] [address] 73238 Basophils/100 WBC (Bld) 0.3 % Normal [facility] Comment on above: Order Comment: Speci men Type: BLOOD SPECIMEN Ordering Facility: [facility] Address: [address] [address] Performed By: #### 5 7021-8, 24933-3 #### [facility] CLIA [id number] [address] [place] [address] 90754 Differential cell count method Nom (Bld) Auto Normal [facility] Comment on above: Order Comment: Speci men Type: BLOOD SPECIMEN Ordering Facility: [facility] Address: [address] [address] Performed By: #### 5 7021-8, 62741-1 #### [facility] CLIA [id number] [address] [place] [address] 97397 Eosinophils (Bld) [#/Vol] 0.10 10*3/uL Normal <0.46 [facility] Comment on above: Order Comment: Speci men Type: BLOOD SPECIMEN Ordering Facility: [facility] Address: [address] [place] [address] Performed By: #### 5 7021-8, 66495-0 #### [facility] CLIA [id number] [address] [place] [address] 97225 Eosinophils/100 WBC (Bld) 1.2 % Normal [facility] Comment on above: Order Comment: Speci men Type: BLOOD SPECIMEN Ordering Facility: [facility] Address: [address] [place] [address] Performed By: #### 5 7021-8, 23458-9 #### [facility] CLIA [id number] [address] [place] [address] 44346 Erythrocyte distribution width (RBC) [Ratio] 10.9 % Low 11.5-15.0 [facility] Comment on above: Order Comment: Speci men Type: BLOOD SPECIMEN Ordering Facility: [facility] Address: [address] [place] [address] Performed By: #### 5 7021-8, 64626-5 #### [facility] CLIA [id number] [address] [place] [address] 99178 Hematocrit (Bld) [Volume fraction] 47.5 % Normal 39.0-51.0 [facility] Comment on above: Order Comment: Speci men Type: BLOOD SPECIMEN Ordering Facility: [facility] Address: [address] [place] [address] Performed By: #### 5 7021-8, 50107-5 #### [facility] CLIA [id number] [address] [place] [address] 88555 Hemoglobin (Bld) [Mass/Vol] 17.2 g/dL High 13.0-17.0 [facility] Comment on above: Order Comment: Speci men Type: BLOOD SPECIMEN Ordering Facility: [facility] Address: [address] Performed By: #### 5 7021-8, 23400-4 #### [facility] CLIA [id number] [address] [place] [address] 74031 Immature granulocytes (Bld) [#/Vol] 10*3/uL Normal <0.10 [facility] Comment on above: Order Comment: Speci men Type: BLOOD SPECIMEN Ordering Facility: [facility] Address: [address] [place], [place] [address] Performed By: #### 5 7021-8, 90495-4 #### [facility] CLIA [id number] [address] [place] [address] 50368 Immature granulocytes/100 WBC (Bld) 0.2 % Normal [facility] Comment on above: Order Comment: Speci men Type: BLOOD SPECIMEN Ordering Facility: [facility] Address: [address] [place] [address] Performed By: #### 5 7021-8, 61661-9 #### [facility] CLIA [id number] [address] [place] [address] 01710 Lymphocytes (Bld) [#/Vol] 2.58 10*3/uL Normal 1.00-4.00 [facility] Comment on above: Order Comment: Speci men Type: BLOOD SPECIMEN Ordering Facility: [facility] Address: [address] [place], [place] [address] Performed By: #### 5 7021-8, 93321-0 #### [facility] CLIA [id number] [address] [place] [address] 38095 Lymphocytes/100 WBC (Bld) 29.8 % Normal [facility] Comment on above: Order Comment: Speci men Type: BLOOD SPECIMEN Ordering Facility: [facility] Address: [address] [place], [place] [address] Performed By: #### 5 7021-8, 39046-0 #### [facility] CLIA [id number] [address] [place] [address] 22723 MCH (RBC) [Entitic mass] 32.4 pg Normal 26.0-34.0 [facility] Comment on above: Order Comment: Speci men Type: BLOOD SPECIMEN Ordering Facility: [facility] Address: [address] [place] [address] Performed By: #### 5 7021-8, 20871-4 #### [facility] CLIA [id number] [address] [place] [address] 19508 MCHC (RBC) [Mass/Vol] 36.2 g/dL High 30.5-36.0 [facility] Comment on above: Order Comment: Speci men Type: BLOOD SPECIMEN Ordering Facility: [facility] Address: [address] [place] [address] Performed By: #### 5 7021-8, 23834-3 #### [facility] CLIA [id number] [address] [place] [address] 66263 MCV (RBC) [Entitic vol] 89.5 fL Normal 80.0-100.0 [facility] Comment on above: Order Comment: Speci men Type: BLOOD SPECIMEN Ordering Facility: [facility] Address: [address] [place] [address] Performed By: #### 5 7021-8, 73089-7 #### [facility] CLIA [id number] [address] [place] [address] 90088 Monocytes (Bld) [#/Vol] 0.55 10*3/uL Normal <0.87 [facility] Comment on above: Order Comment: Speci men Type: BLOOD SPECIMEN Ordering Facility: [facility] Address: [address] [place] [address] Performed By: #### 5 7021-8, 32736-1 #### [facility] CLIA [id number] [address] [place] [address] 06760 Monocytes/100 WBC (Bld) 6.4 % Normal [facility] Comment on above: Order Comment: Speci men Type: BLOOD SPECIMEN Ordering Facility: [facility] Address: [address] Performed By: #### 5 7021-8, 51779-5 #### [facility] CLIA [id number] [address] [place] [address] 16937 Neutrophils (Bld) [#/Vol] 5.37 10*3/uL Normal 1.45-7.50 [facility] Comment on above: Order Comment: Speci men Type: BLOOD SPECIMEN Ordering Facility: [facility] Address: [address] [place], [place] [address] Performed By: #### 5 7021-8, 88382-1 #### [facility] CLIA [id number] [address] [place] [address] 77427 Neutrophils/100 WBC (Bld) 62.1 % Normal [facility] Comment on above: Order Comment: Speci men Type: BLOOD SPECIMEN Ordering Facility: [facility] Address: [address] [place], [place] [address] Performed By: #### 5 7021-8, 03375-7 #### [facility] CLIA [id number] [address] [place] [address] 49063 Nucleated RBC (Bld) [#/Vol] 10*3/uL Normal <0.01 [facility] Comment on above: Order Comment: Speci men Type: BLOOD SPECIMEN Ordering Facility: [facility] Address: [address] Performed By: #### 5 7021-8, 79452-5 #### [facility] CLIA [id number] [address] [place] [address] 10882 Nucleated RBC/100 WBC (Bld) [Ratio] 0.0 /100 WBC Normal [facility] Comment on above: Order Comment: Speci men Type: BLOOD SPECIMEN Ordering Facility: [facility] Address: [address] [place], [place] [address] Performed By: #### 5 7021-8, 65235-2 #### [facility] CLIA [id number] [address] [place] [address] Platelet mean volume (Bld) [Entitic vol] 9.1 fL Normal 9.0-12.7 [facility] Comment on above: Order Comment: Speci men Type: BLOOD SPECIMEN Ordering Facility: [facility] Address: [address] [place], [place] [address] Performed By: #### 5 7021-8, 52269-9 #### [facility] CLIA [id number] [address] [place] [address] 82308 Platelets (Bld) [#/Vol] 183 10*3/uL Normal 150-400 [facility] Comment on above: Order Comment: Speci men Type: BLOOD SPECIMEN Ordering Facility: [facility] Address: [address] [place] [address] Performed By: #### 5 7021-8, 56430-8 #### [facility] CLIA [id number] [address] [place] [address] 32635 RBC (Bld) [#/Vol] 5.31 10*6/uL Normal 4.20-6.00 [facility] Comment on above: Order Comment: Speci men Type: BLOOD SPECIMEN Ordering Facility: [facility] Address: [address] [place] [address] Performed By: #### 5 7021-8, 80607-0 #### [facility] CLIA [id number] [address] [place] [address] 35557 WBC (Bld) [#/Vol] 8.65 10*3/uL Normal 3.70-11.00 [facility] Comment on above: Order Comment: Speci men Type: BLOOD SPECIMEN Ordering Facility: [facility] Address: [address] [place] [address] Performed By: #### 5 7021-8, 56640-8 #### [facility] CLIA [id number] [address] [place] [address] CNOVSPon 05-16-2022 CNOVSP Visit (SP) Office ([place]) MARGARETH BRICENO ([id number]) 2 M Date Time Provider Department 05/16/22 4:00 PM KETAN VELASQUEZ During your visit today, we recorded the following information about you: Temperature Pulse Respiration Blood pressure 97.5 degrees 80/minute 16/minute 107/60 Weight Height 50.9 kg 1.702 m Shawnee Victoria Ma 05/16/2022 3:25 PM Signed Patient complains of fatigue, chest pain, SOB, heart palpitations, vivid dreams and bowel changes. Symptoms starts around July of this year. Shawnee Velasquez MD 05/25/2022 12:01 PM Signed NAME: Margareth Briceno CLINIC NO.: [id number] DATE OF SERVICE: May 16, 2022 Referring Provider: Lalit Mendez Consultation requested by Dr. Mendez for an opinion regarding Mr. Margareth Briceno, and my final recommendations will be communicated back to the requesting physician by way of shared medical record or letter via US mail. Additional Clinicians involved in Margareth Briceno's care: DIAGNOSIS: Elevated iron ASSESSMENT: 22 year old man with current tobacco use and apparent secondary polycythemia presenting with concern for hemochromatosis with elevated iron levels. Since he has been giving blood regularly, it is hard to determine what his iron saturations may have been originally, however, his ferritin has never really been elevated and therefore he most likely does not have an issue with iron metabolism. I see a bigger issue with secondary polycythemia but this is directly related to his tobacco use. His symptoms are largely related to anxiety with respect to tachycardia, palpitations and subsequent dizziness. PLAN: Labs today HFE possible Call results Thursday decide on HFE testing. - HPI: CASE HISTORY: 04/26/2022 laboratories: Iron 187 03/29/2022 laboratories: Drug screen negative, CBC: 6.9 > 16.6/46.3 < 186. CMP: No clinically significant abnormalities 03/29/2022 ER visit for abdominal pain, palpitations, tachycardia, anxiety attack. 02/21/2022 ferritin 114 Initial Visit, May 16, 2022: Margareth Briceno presents today Hematology and Oncology evaluation. He is a 22 year old male who is accompanied by his mother Yumiko for work-up of iron overload. He recently moved from [place] and notes that in July 2021 his iron level was high and therefore he started giving blood. In January his iron was 240 and again gave more blood and then had recent laboratories which I have tried to summarize above. Does not appear that his ferritin level has been elevated and prior available laboratories. He has a prior history of substance abuse and so has moved to the area, is working, and has limited his social life in order to abstain. In compensatory manner, he smokes regularly. Reviewing his laboratories reveals mild polycythemia either related to his age or his tobacco use. He notes multiple symptoms of tachycardia, dizziness and presyncopal episodes. He has become increasingly anxious that iron deposition may be causing some of the symptoms. I have reassured him as much as possible and encouraged him to continue abstaining from his prior history of substance abuse. I also educated him regarding iron deposition and noted that since his ferritin level has never been elevated, he is unlikely to have issues or concern for hemochromatosis. He can stop giving blood in we can observe him more carefully and see if his ferritin level rises. - REVIEW OF SYSTEMS Per HPI and otherwise negative by full review of organ systems. - ECOG PERFORMANCE STATUS: 0 PHYSICAL EXAMINATION: Vitals: BP 107/60 Pulse 80 Temp (Src) 97.5 (Temporal) Resp 16 Ht 5' 7 (1.70m) Wt 112 lb 3.2 oz (50.9kg) SpO2 98% BMI 17.57 kg/(m2). Body surface area is 1.55 meters squared. General:This is an age-appropriate patient in no acute distress. Head: Atraumatic, symmetric with no lesions visible. Eyes: Pupils equally round and reactive to light, extraocular muscles intact. Neck: Supple Mouth: Mucous membranes are moist, no thrush is noted. Lungs: Clear to auscultation bilaterally with no wheezes crackles or rales. Cardiovascular: Regular rate and rhythm with no murmurs or gallops. Peripheral pulses: Normal. Gastrointestinal: Soft, nontender, normoactive bowel sounds, with no appreciable hepatosplenomegaly. Musculoskeletal: No appreciable bony abnormalities or tenderness. Extremities: Lower extremities without edema. Neurologic: Nonfocal to gross visualization. Alert and oriented ?3. Psychiatric: No evidence of inappropriate anxiety or depression. Skin: No overt (more content not included)... Normal [facility] Comprehensive metabolic 2000 panelon 05-16-2022 Albumin [Mass/Vol] 5.1 g/dL High 3.9-4.9 [facility] Comment on above: Order Comment: Speci men Type: BLOOD SPECIMEN [facility]ing Facility: [facility] Address: [address] [place] [address] Performed By: #### 5 7021-8, 28424-3 #### [facility] CLIA [id number] [address] [place] [address] 12719 ALP [Catalytic activity/Vol] 89 U/L Normal 38-113 [facility] Comment on above: Order Comment: Speci men Type: BLOOD SPECIMEN Ordering Facility: [facility] Address: [facility] [address] Performed By: #### 5 7021-8, 97505-6 #### [facility] CLIA [id number] [address] [place] [address] 85286 ALT [Catalytic activity/Vol] 13 U/L Normal 10-54 [facility] Comment on above: Order Comment: Speci men Type: BLOOD SPECIMEN Ordering Facility: [facility] Address: [address] [place] [address] Performed By: #### 5 7021-8, 23672-4 #### [facility] CLIA [id number] [address] [place] [address] 29803 Anion gap [Moles/Vol] 8 mmol/L Low 9-18 [facility] Comment on above: Order Comment: Speci men Type: BLOOD SPECIMEN Ordering Facility: [facility] Address: [address] [place] [address] Performed By: #### 5 7021-8, 19871-3 #### [facility] CLIA [id number] [address] [place] [address] 94905 AST [Catalytic activity/Vol] 19 U/L Normal 14-40 [facility] Comment on above: Order Comment: Speci men Type: BLOOD SPECIMEN Ordering Facility: [facility] Address: [address] [place], [place] [address] Performed By: #### 5 7021-8, 02100-1 #### [facility] CLIA [id number] [address] [place] [address] 56623 Bilirubin [Mass/Vol] 0.3 mg/dL Normal 0.2-1.3 [facility] Comment on above: Order Comment: Speci men Type: BLOOD SPECIMEN [facility]ing Facility: [facility] Address: [address] [place], [place] [address] Performed By: #### 5 7021-8, 25828-2 #### [facility] CLIA [id number] [address] [place] [address] Calcium [Mass/Vol] 9.8 mg/dL Normal 8.5-10.2 [facility] Comment on above: Order Comment: Speci men Type: BLOOD SPECIMEN Ordering Facility: [facility] Address: [address] [place] [address] Performed By: #### 5 7021-8, 67214-7 #### [facility] CLIA [id number] [address] [place] [address] 57873 Chloride [Moles/Vol] 105 mmol/L Normal 97-105 [facility] Comment on above: Order Comment: Speci men Type: BLOOD SPECIMEN Ordering Facility: [facility] Address: [address] [place] [address] Performed By: #### 5 7021-8, 91491-8 #### [facility] CLIA [id number] [address] [place] [address] 70796 CO2 [Moles/Vol] 28 mmol/L Normal 22-30 [facility] Comment on above: Order Comment: Speci men Type: BLOOD SPECIMEN Ordering Facility: [facility] Address: [address] [place] [address] Performed By: #### 5 7021-8, 61543-0 #### [facility] CLIA [id number] [address] [place] [address] 14443 Creatinine [Mass/Vol] 0.86 mg/dL Normal 0.73-1.22 [facility] Comment on above: Order Comment: Speci men Type: BLOOD SPECIMEN Ordering Facility: [facility] Address: [address] [place] [address] Performed By: #### 5 7021-8, 97233-1 #### [facility] CLIA [id number] [address] [place] [address] 32028 ESTIMATED GLOMERULAR FILTRATION RATE 126 mL/min/1.73m??? Normal >=60 [facility] Comment on above: Order Comment: Krys centeno Type: BLOOD SPECIMEN Ordering Facility: [facility] Address: [address] [place] [address] Result Comment: Sabiha mated Glomerular Filtration Rate (eGFR) is calculated using the 2020 CKD-EPI creatinine equation. This equation utilizes serum creatinine, sex, and age as parameters. The creatinine assay has traceable calibration to isotope dilution-mass spectrometry. Refer to KDIGO guidelines for clinical interpretation. In patients with unstable renal function, e.g. those with acute kidney injury, the eGFR may not accurately reflect actual GFR. Performed By: #### 5 7021-8, 29608-2 #### [facility] CLIA [id number] [address] [place] [address] 06816 Glucose [Mass/Vol] 103 mg/dL High 74-99 [facility] Comment on above: Order Comment: Krys centeno Type: BLOOD SPECIMEN Ordering Facility: [facility] Address: [address] [place] [phone] Result Comment: The [place] [employer] (ADA) provides guidance for cutoff values for fasting glucose and random glucose. The ADA defines fasting as no caloric intake for at least 8 hours. Fasting plasma glucose results between 100 to 125 mg/dL indicate increased risk for diabetes (prediabetes). Fasting plasma glucose results greater than or equal to 126 mg/dL meet the criteria for diagnosis of diabetes. In the absence of unequivocal hyperglycemia, results should be confirmed by repeat testing. In a patient with classic symptoms of hyperglycemia or hyperglycemic crisis, random plasma glucose results greater than or equal to 200 mg/dL meet the criteria for diagnosis of diabetes. Reference: Standards of Medical Care in Diabetes 2016, [place] [employer] Association. Diabetes Care. 2016.39(Suppl 1). Performed By: #### 5 7021-8, 55466-2 #### [facility] CLIA [id number] [address] [place] [address] 80336 Potassium [Moles/Vol] 3.9 mmol/L Normal 3.7-5.1 [facility] Comment on above: Order Comment: Krys centeno Type: BLOOD SPECIMEN [facility] Facility: [facility] Address: [address] Performed By: #### 5 7021-8, 59111-8 #### [facility] CLIA [id number] [address] [place] [address] Protein [Mass/Vol] 7.6 g/dL Normal 6.3-8.0 [facility] Comment on above: Order Comment: Speci men Type: BLOOD SPECIMEN [facility]ing Facility: [facility] Address: [address] [place] [address] Performed By: #### 5 7021-8, 10328-4 #### [facility] CLIA [id number] [address] [place] [address] 18913 Sodium [Moles/Vol] 141 mmol/L Normal 136-144 [facility] Comment on above: Order Comment: Speci men Type: BLOOD SPECIMEN Ordering Facility: [facility] Address: [address] [place] [address] Performed By: #### 5 7021-8, 48549-6 #### [facility] CLIA [id number] [address] [place] [address] 07063 Urea nitrogen [Mass/Vol] 15 mg/dL Normal 9-24 [facility] Comment on above: Order Comment: Speci men Type: BLOOD SPECIMEN [facility] Facility: [facility] Address: [address] [place] [address] Performed By: #### 5 7021-8, 84786-1 #### [facility] CLIA [id number] [address] [place] [address] 27833 [facility] Erythropoietin (EPO) Qn 7.8 mIU/mL Normal 2.6-18.5 [facility] Comment on above: Order Comment: Speci men Type: BLOOD SPECIMEN [facility] Facility: [facility] Address: [address] [place] [address] Performed By: #### 5 7021-8, 37681-8 #### [facility] CLIA [id number] [address] [place] [address] 33363 Ferritin SerPl-mCncon 2021 Ferritin [Mass/Vol] 73.5 ng/mL Normal 30.3-565.7 [facility] Comment on above: Order Comment: Speci men Type: BLOOD SPECIMEN [facility] Facility: [facility] Address: [address] [place] [address] Performed By: #### 5 0190-8, 9, 2275-4, 8 #### [facility] CLIA [id number] [address] [place] [address] [place] Folate SerPl-mCncon 05-16-20 Folate [Mass/Vol] 12.7 ng/mL Normal >4.7 [facility] Comment on above: Order Comment: Speci men Type: BLOOD SPECIMEN [facility] Facility: [facility] Address: [address] [place] [address] Performed By: #### 5 0190-8, 9, 2275-4, 8 #### [facility] CLIA [id number] [address] [place] [address] [place] Iron and Iron binding capaci ty panelon 05-16-2022 Iron [Mass/Vol] 77 ug/dL Normal 41-186 [facility] Comment on above: Order Comment: Speci men Type: BLOOD SPECIMEN [facility] Facility: [facility] Address: [address] [place] [address] Performed By: #### 5 0190-8, 9, 2275-4, 8 #### [facility] CLIA [id number] [address] [place] [address] [place] Iron binding capacity [Mass/Vol] 279 ug/dL Normal 232-386 [facility] Comment on above: Order Comment: Speci men Type: BLOOD SPECIMEN [facility]ing Facility: [facility] Address: [address] [place] [address] Performed By: #### 5 0190-8, 2-9, 6-4, 2284-8 #### [facility] CLIA [id number] [address] [place] [address] [place] Iron/TIBC [Molar ratio] 27.6 % Normal 15.0-57.0 [facility] Comment on above: Order Comment: Speci men Type: BLOOD SPECIMEN Ordering Facility: [facility] Address: [address] [place], [place] [id number] Performed By: #### 5 0190-8, 2131-9, 6-4, 2284-8 #### [facility] CLIA [id number] [address] [place] [address] [place] Retics #on 05-16-2022 Reticulocytes (Bld) [#/Vol] 0.15079 10*3/uL Normal 0.018-0.100 [facility] Comment on above: Order Comment: Speci men Type: BLOOD SPECIMEN [facility]ing Facility: [facility] Address: [address] [place], [place] [id number] Performed By: #### 5 7021-8, 00649-8 #### [facility] CLIA [id number] [address] [place] [address] Reticulocytes (Bld) [#/Vol]o n 05-16-2022 Reticulocytes/100 RBC (Bld) 1.1 % Normal 0.4-2.0 [facility] Comment on above: Order Comment: Speci men Type: BLOOD SPECIMEN [facility]ing Facility: [facility] Address: [address] [place] [id number] Performed By: #### 5 7021-8, 45308-3 #### [facility] CLIA [id number] [address] [place] [address] Vit B12 SerPl-ncon 022 Cobalamin (Vitamin B12) [Mass/Vol] 684 pg/mL Normal 232-1245 [facility] Comment on above: Order Comment: Speci men Type: BLOOD SPECIMEN Ordering Facility: [facility] Address: [address] [place], [place] [id number] Performed By: #### 5 0190-8, 2132-9, 2276-4, 2284-8 #### [facility] CLIA [id number] [address] [facility] [place] [address] [place] FREE T3on 04-26-2022 FREE T3 2.33 pg/mlL Normal 2.18-3.98 Comment on above: Performed By: #### T CHRISTOPHER, FT3 ####[facility] [address] [address]Dr. Jhonny Huggins FREE T4on 04-26-2022 Free T4 [Mass/Vol] 0.85 ng/dL Normal 0.76-1.46 [facility] Comment on above: Performed By: #### I ONEIDA FT4 #### [facility] [address] [address] [address] Jhonny Huggins IRONon 04-26-2022 Iron [Mass/Vol] 187.0 ug/dL Critically high 65.0-175.0 Comment on above: Performed By: #### I ONEIDA, FT4 #### [facility] [address] [address] [address] Jhonny Huggins TSHon 04-26-2022 TSH 0.708 uIU/mL Normal 0.358-3.740 [facility] Comment on above: Performed By: #### T CHRISTOPHER, FT3 #### [facility] [address] [address] [address] Jhonny Huggins CBC AUTO DIFFon 03-29-2022 BASO # 0.0 103/ul Normal 0.0-0.1 Comment on above: Performed By: #### C BC #### [facility] [address] [address] [address] Jhonny Huggins Basophils/100 WBC (Bld) 0.4 % Normal 0.2-2.0 Comment on above: Performed By: #### C BC #### [facility] [address] [place] [address] Dr. Jhonny Huggins EO # 0.1 103/ul Normal 0.0-0.7 Comment on above: Performed By: #### C BC #### [facility] [address] [place] [address] Dr. Jhonny Huggins Eosinophils/100 WBC (Bld) 1.0 % Normal 0.9-7.0 Comment on above: Performed By: #### C BC #### [facility] [address] [place] [address] Dr. Jhonny Huggins Erythrocyte distribution width (RBC) [Ratio] 11.9 % Normal 11.0-15.0 Comment on above: Performed By: #### C BC #### [facility] [address] [place] [address] Dr. Jhonny Huggins Hematocrit (Bld) [Volume fraction] 46.3 % Normal 42.0-54.0 Comment on above: Performed By: #### C BC #### [facility] [address] [place] [address] Dr. Jhonny Huggins Hemoglobin (Bld) [Mass/Vol] 16.6 g/dL Normal 14.0-18.0 Comment on above: Performed By: #### C BC #### [facility] [address] [place] [address] Dr. Jhonny Huggins IG # 0.03 10e3/ul Normal 0.00-0.03 [facility] Comment on above: Performed By: #### C BC #### [facility] [address] [place] [address] Dr. Jhonny Huggins IG % 0.4 % Normal 0.0-0.5 [facility] Comment on above: Performed By: #### C BC #### [facility] [address] [place] [address] Dr. Jhonny Huggins LYMPH # 1.9 103/ul Normal 1.2-3.8 [facility] Comment on above: Performed By: #### C BC #### [facility] [address] [place] [address] Dr. Jhonny Huggins Lymphocytes/100 WBC (Bld) 27.4 % Normal 20.5-60.0 [facility] Comment on above: Performed By: #### C BC #### [facility] [address] [place] [address] Dr. Jhonny Huggins MANUAL DIFF REQ NO Normal The [facility] Comment on above: Performed By: #### C BC #### [facility] [address] [place] [address] Dr. Jhonny Huggins MCH (RBC) [Entitic mass] 32.7 pg Normal 25.9-34.0 [facility] Comment on above: Performed By: #### C BC #### [facility] [address] [place] [address] Dr. Jhonny Huggins MCHC (RBC) [Mass/Vol] 35.9 g/dL Critically high 29.9-35.2 [facility] Comment on above: Performed By: #### C BC #### [facility] [address] [place] [address] Dr. Jhonny Huggins MCV (RBC) [Entitic vol] 91.3 fL Normal 80.0-94.0 [facility] Comment on above: Performed By: #### C BC #### [facility] [address] [place] [address] Dr. Jhonny Huggins MONO # 0.4 103/ul Normal 0.3-0.8 [facility] Comment on above: Performed By: #### C BC #### [facility] [address] [place] [address] Dr. Jhonny Huggins Monocytes/100 WBC (Bld) 5.5 % Normal 1.7-12.0 [facility] Comment on above: Performed By: #### C BC #### [facility] [address] [place] [address] Dr. Jhonny Huggins NEUT # 4.5 103/ul Normal 1.4-6.5 [facility] Comment on above: Performed By: #### C BC #### [facility] [address] [address] [address] Jhonny Huggins Neutrophils/100 WBC (Bld) 65.3 % Normal 43.0-75.0 [facility] Comment on above: Performed By: #### C BC #### [facility] [address] [place] [address] Dr. Jhonny Huggins Platelet mean volume (Bld) [Entitic vol] 9.2 fL Critically low 9.5-13.5 Comment on above: Performed By: #### C BC #### [facility] [address] [address] [address] Jhonny Huggins PLT 186 103/ul Normal 150-450 [facility] Comment on above: Performed By: #### C BC #### [facility] [address] [place] [address] Dr. Jhonny Huggins RBC 5.07 106/ul Normal 4.70-6.10 [facility] Comment on above: Performed By: #### C BC #### [facility] [address] [address] [address] Jhonny Huggins WBC 6.9 103/ul Normal 4.0-11.0 [facility] Comment on above: Performed By: #### C BC #### [facility] [address] [address] [address] Jhonny Huggins DRUG SCREEN RAPID (URINE)on 03-29-2022 AMP Negative Normal NEGATIVE [facility] Comment on above: Performed By: #### E RUR, DRUGRPD ####[facility] [address] [address]DrBlake Huggins BAR Negative Normal NEGATIVE [facility] Comment on above: Performed By: #### E RUR, DRUGRPD ####[facility] [address] [address]DrBlake Huggins BUP Negative Normal NEGATIVE [facility] Comment on above: Performed By: #### E RUR, DRUGRPD ####[facility] [address] [id number] Huggins BZO Negative Normal NEGATIVE [facility] Comment on above: Performed By: #### E RUR, DRUGRPD ####[facility] [address] [place], [place] [address]Dr. Jhonny Huggins SCOT Negative Normal NEGATIVE [facility] Comment on above: Performed By: #### E RUR, DRUGRPD ####[facility] [address] [place], [place] [address]Dr. Jhonny Huggins CUT-OFFS SEE BELOW Normal [facility] Comment on above: Result Comment: AMP (Amphetamine): 500ng/mL, BAR (Barbituates): 200 ng/mL, BZO (Benzodiazepines): 150 ng/mL, BUP (Buprenorphine): 10 ng/mL, SCOT (Cocaine): 150 ng/mL, mAMP (Methamphetamine): 500 ng/mL, MTD (Methadone): 200 ng/mL, OPI (Opiates): 100 ng/mL, OXY (Oxycodone): 100 ng/mL, PCP (Phencyclidine): 25 ng/mL, PPX (Propoxyphene): 300 ng/mL, THC (Cannabinoids): 50 ng/mL, TCA (Trycyclic Antidepressants): 300 ng/mL Performed By: #### E RUR, DRUGRPD ####[facility] [address] [place], [place] [address]Dr. Jhonny Huggins DRUG CUT HEADER DRUG CLASS TEST SYSTEM CUT-OFF CONCENTRATIONS ARE FOLLOWS: Normal [facility] Comment on above: Performed By: #### E RUR, DRUGRPD ####[facility] [address] [place], [place] [address]Dr. Jhonny Huggins mAMP Negative Normal NEGATIVE [facility] Comment on above: Performed By: #### E RUR, DRUGRPD ####[facility] [address] [place], [place] [address]Dr. Jhonny Huggins MTD Negative Normal NEGATIVE [facility] Comment on above: Performed By: #### E RUR, DRUGRPD ####[facility] [address] [place], [place] [address]Dr. Jhonny Huggins OPI Negative Normal NEGATIVE [facility] Comment on above: Performed By: #### E RUR, DRUGRPD ####[facility] [address] [address]Dr. Yisatish Huggins OXY Negative Normal NEGATIVE [facility] Comment on above: Performed By: #### E RUR, DRUGRPD ####[facility] [address] [place], [place] [address]Dr. Jhonny Huggins PCP Negative Normal NEGATIVE [facility] Comment on above: Performed By: #### E RUR, DRUGRPD ####[facility] [address] [place], [place] [address]Dr. Jhonny Huggins PPX Negative Normal NEGATIVE [facility] Comment on above: Performed By: #### E RUR, DRUGRPD ####[facility] [address] [place], [place] [address]Dr. Jhonny Huggins TCA Negative Normal NEGATIVE Comment on above: Performed By: #### E RUR, DRUGRPD ####[facility] [address] [place], [place] [address]Dr. Jhonny Huggins THC Negative Normal NEGATIVE Comment on above: Performed By: #### E RUR, DRUGRPD ####[facility] [address] [place], [place] [address]Dr. Jhonny Huggins ER URINE PROFILEon 2 Bilirubin Ql (U) Negative Normal NEGATIVE The [facility] Comment on above: Performed By: #### E RUR, DRUGRPD ####[facility] [address] [place], [place] [address]Dr. Rachelsatish Huggins Clarity (U) CLEAR Normal CLEAR [facility] Comment on above: Performed By: #### E RUR, DRUGRPD ####[facility] [address] [place], [place] [address]Dr. Rachelsatish Huggins Color (U) LT. YELLOW Normal YELLOW Comment on above: Performed By: #### E RUR, DRUGRPD ####[facility] [address] [place], [place] [address]Dr. Jhonny Huggins ERUAHD A micrscopic examination will be performed if indicated. Normal [facility] Comment on above: Performed By: #### E RUR, DRUGRPD ####[facility] [address] [address]Dr. Jhonny Huggins Glucose Ql (U) Negative Normal NEGATIVE The [facility] Comment on above: Performed By: #### Vishal ANTONIO DRUGRPD ####[facility] [address] [address]Dr. Jhonny Huggins Hemoglobin Ql (U) Negative Normal NEGATIVE The [facility] Comment on above: Performed By: #### Vishal ANTONIO DRUGRPD ####[facility] [address] [place], [place] [address]Dr. Jhonny Huggins Ketones Ql (U) Negative Normal NEGATIVE The [facility] Comment on above: Performed By: #### Vishal ANTONIO DRUGRPD ####[facility] [address] [place], [place] [address]Dr. Jhonny Huggins LEUKOCYTES Negative Normal NEGATIVE Comment on above: Performed By: #### Vishal ANTONIO DRUGRPD ####[facility] [address] [place], [place] [address]Dr. Jhonny Huggins Nitrite Ql (U) Negative Normal NEGATIVE [facility] Comment on above: Performed By: #### Vishal ANTONIO DRUGRPD ####[facility] [address] [place], [place] [address]Dr. Jhonny Huggins pH (U) 7.0 [pH] Normal 5-9 Comment on above: Performed By: #### Vishal ANTONIO DRUGRPD ####[facility] [address] [place], [place] [address]Dr. Jhonny Huggins SPEC GRAVITY 1.010 Normal 1.005-<=1.02 5 [facility] Comment on above: Performed By: #### Vishal ANTONIO DRUGRPD ####[facility] [address] [place], [place] [address]Dr. Jhonny Huggins UA PROTEIN Negative Normal NEGATIVE/ TRACE [facility] Comment on above: Performed By: #### Vishal ANTONIO DRUGRPD ####[facility] [address] [place], [place] [address]DrBlake Huggins UR MICRO IND NOT INDICATED Normal The [facility] Comment on above: Performed By: #### E RUR, DRUGRPD ####[facility] [address] [id number]. Jhonny Huggins Urobilinogen Qn (U) 0.2 {Monica'U}/dL Normal 0.2 - 1. 0 Comment on above: Performed By: #### E RUR, DRUGRPD ####[facility] [address] [id number] Huggins POINT OF CARE GLUCOSEon Glucose [Mass/Vol] 89 mg/dL Normal 74-106 [facility] Comment on above: Performed By: #### P OCGLUC #### [facility] [address] [address] [address] Jhonny Huggins PROF 14(COMP METB)on 022 Albumin [Mass/Vol] 4.6 g/dL Normal 3.4-5.0 [facility] Comment on above: Performed By: #### C MP #### [facility] [address] [address] [address] Jhonny Huggins Albumin/Globulin [Mass ratio] 1.5 {ratio} Normal Comment on above: Performed By: #### C MP #### [facility] [address] [address] [address] Jhonny Huggins ALP [Catalytic activity/Vol] 86 U/L Normal 46-116 [facility] Comment on above: Performed By: #### C MP #### [facility] [address] [address] [address] Jhonny Huggins ALT [Catalytic activity/Vol] 17 U/L Normal 16-63 [facility] Comment on above: Performed By: #### C MP #### [facility] [address] [address] [address] Jhonny Huggins Anion gap [Moles/Vol] 14.3 mmol/L Normal Comment on above: Performed By: #### C MP #### [facility] [address] [address] [address] Jhonny Huggins AST [Catalytic activity/Vol] 18 U/L Normal 15-37 Comment on above: Performed By: #### C MP #### [facility] [address] [address] [address] Jhonny Huggins Bilirubin [Mass/Vol] 0.4 mg/dL Normal 0.2-1.0 Comment on above: Performed By: #### C MP #### [facility] [address] [address] [address] Jhonny Huggins Calcium [Mass/Vol] 9.0 mg/dL Normal 8.5-10.1 [facility] Comment on above: Performed By: #### C MP #### [facility] [address] [place] [address] Dr. Jhonny Huggins Chloride [Moles/Vol] 104 mmol/L Normal 98-107 Comment on above: Performed By: #### C MP #### [facility] [address] [place] [address] Dr. Jhonny Huggins CO2 [Moles/Vol] 25.4 mmol/L Normal 21.0-32.0 [facility] Comment on above: Performed By: #### C MP #### [facility] [address] [place] [address] Dr. Jhonny Huggins Creatinine [Mass/Vol] 0.90 mg/dL Normal 0.70-1.30 Comment on above: Performed By: #### C MP #### [facility] [address] [place] [address] Dr. Jhonny Huggins EGFR-AF [place] >60 Normal >=60 [facility] Comment on above: Performed By: #### C MP #### [facility] [address] [place] [address] Dr. Jhonny Huggins EGFR-NON AF [place] >60 Normal >=60 [facility] Comment on above: Performed By: #### C MP #### [facility] [address] [place] [address] Dr. Jhonny Huggins Globulin (S) [Mass/Vol] 2.9 g/dL Normal Comment on above: Performed By: #### C MP #### [facility] [address] [address] [address] Jhonny Huggins Glucose [Mass/Vol] 87 mg/dL Normal 74-106 [facility] Comment on above: Performed By: #### C MP #### [facility] [address] [address] [address] Jhonny Huggins Potassium [Moles/Vol] 3.7 mmol/L Normal 3.5-5.1 Comment on above: Performed By: #### C MP #### [facility] [address] [address] [address] Jhonny Huggins Protein [Mass/Vol] 7.5 g/dL Normal 6.4-8.2 [facility] Comment on above: Performed By: #### C MP #### [facility] [address] [address] [address] Jhonny Huggins Sodium [Moles/Vol] 140 mmol/L Normal 136-145 [facility] Comment on above: Performed By: #### C MP #### [facility] [address] [address] [address] Jhonny Huggins Urea nitrogen [Mass/Vol] 11.0 mg/dL Normal 7.0-18.0 Comment on above: Performed By: #### C MP #### [facility] [address] [address] [address] Jhonny Huggins Urea nitrogen/Creatinine [Mass ratio] 12.2 mg/mg Normal Comment on above: Performed By: #### C MP #### [facility] [address] [id number] Jhonny Huggins XR CHEST 1 Von 03-29-2022 XR CHEST 1 V EXAM: XR CHEST 1 V COMPARISON: 02/18/2022 CLINICAL INDICATION: Chest pain. FINDINGS: The cardiomediastinal silhouette is within normal limits. No focal consolidation. No pleural effusion. No pneumothorax. No evidence of acute osseous abnormality. Visualized upper abdomen grossly unremarkable. IMPRESSION: No radiographic evidence of acute abnormality. Electronically authenticated by: FIDEL LOVETT Date: 2022-03-29 15:49 Normal IRONon 03-15-2022 Iron [Mass/Vol] 75.0 ug/dL Normal 65.0-175.0 [facility] Comment on above: Performed By: #### I ONEIDA #### [facility] [address] [address] [address] Jhonny Huggins FERRITINon 02-21-2022 Ferritin [Mass/Vol] 114.0 ng/mL Normal 26.0-388.0 Comment on above: Performed By: #### F ERR #### [facility] [address] [address] [address] Jhonny Huggins XR CHEST 2 Von 02-18-2022 XR CHEST 2 V EXAMINATION: XR CHES T 2 V HISTORY: Pleurisy COMPARISON: None. FINDINGS: Two views are submitted. The lungs and pleural spaces are clear. Pulmonary vascular markings are normal. The cardiomediastinal silhouette is within normal limits. No acute osseous abnormality. IMPRESSION: No acute cardiopulmonary abnormality. Electronically authenticated by: ABRIL ANDREWS Date: 2022-02-18 18:31 Normal [facility] Vital Signs Date Time Vital Sign Value Performing Clinician Facility 03-31-2024 14:20-0400 Blood Pressure Location [place] [facility] [facility] 03-31-2024 14:20-0400 Body temperature 98.6 [degF] [place] [facility] 03-31-2024 14:20-0400 Diastolic blood pressure 75 mm[Hg] [facility] 03-31-2024 14:20-0400 Heart rate 65 /min [facility] 03-31-2024 14:20-0400 SaO2% (BldA) [Mass fraction] 99 % [facility] 03-31-2024 14:20-0400 Systolic blood pressure 115 mm[Hg] YAHIR ROSADO [facility] 10-15-2022 12:20-0400 Body height 170.18 cm Johanne Kovacs Other [facility] Other 10-15-2022 12:20-0400 Body mass index (BMI) [Ratio] 17.23 kg/m2 Johanne Bellamymond Other [facility] Other 10-15-2022 12:20-0400 Body temperature 97 [degF] Johanne Kovacs Other [facility] Other 10-15-2022 12:20-0400 Body weight 49.9 kg Johanne Kovacs Other [facility] Other 10-15-2022 12:20-0400 Respiratory rate 18 /min Johanne Kovacs Other [facility] Other 10-15-2022 12:20-0400 SaO2% (BldA) [Mass fraction] 98 % Johanne Kovacs Other [facility] Other 08-27-2022 14:39-0500 Body height 170.2 cm Shayna Blum APRN.POLE LIFT OPERATOR Work Phone: [facility] 08-27-2022 14:39-0500 Body temperature 97.81 [degF] Shayna Blum APRN.POLE LIFT OPERATOR Work Phone: [facility] 08-27-2022 14:39-0500 Body weight 51.8 kg Shayna Blum APRN.CNP Work Phone: [facility] 08-27-2022 14:39-0500 Diastolic blood pressure 53 mm[Hg] Shayna Blum APRN.POLE LIFT OPERATOR Work Phone: [facility] 08-27-2022 14:39-0500 Heart rate 75 /min Shayna Blum APRN.POLE LIFT OPERATOR Work Phone: [facility] 08-27-2022 14:39-0500 Respiratory rate 16 /min Shayna Blum APRN.POLE LIFT OPERATOR Work Phone: [facility] 08-27-2022 14:39-0500 SaO2% (BldA) [Mass fraction] 98 % Shayna Blum [employer] OPERATOR TRACK.POLE LIFT OPERATOR Work Phone: [facility] 08-27-2022 14:39-0500 Systolic blood pressure 115 mm[Hg] Shayna Blum APRN.POLE LIFT OPERATOR Work Phone: [facility] 05-16-2022 11:15-0400 Body weight 50.8 kg Kendall Jules Other [facility] Other Encounters Encounter Date Encounter Type Care Provider Facility Start: 09-16-2024 End: 09-16-2024 ambulatory BELLY DUMP DRIVER Rani L Shawn Facility: [facility] Start: 08-30-2024 End: 08-30-2024 ambulatory BELLY DUMP DRIVER Rani L Shawn Facility: [facility] Start: 08-12-2024 End: 08-12-2024 ambulatory BELLY DUMP DRIVER Rani L Shawn Facility: [facility] Start: 08-05-2024 End: 08-05-2024 ambulatory BELLY DUMP DRIVER Rani L Shawn Facility: [facility] Start: 07-15-2024 End: 07-15-2024 ambulatory BELLY DUMP DRIVER Rani L Shawn Facility: [facility] Start: 06-27-2024 End: 06-27-2024 Lab Drop off [facility]ani L [facility] Start: 06-27-2024 End: 06-27-2024 ambulatory Rani L Shawn [place] [place]: 04-25-2024 End: 04-25-2024 ambulatory Rani L Shawn Facility:[facility] Start: 03-31-2024 ambulatory Rani Shawn Facility:[facility] Start: 03-31-2024 End: 03-31-2024 ambulatory PA-C YAHIR ROSADO Facility:[facility] Start: 03-31-2024 End: 03-31-2024 Patient encounter procedure YAHIR ROSSTIZ [facility] Start: 02-22-2024 End: 02-22-2024 ambulatory Rani L Shawn Facility:[facility] Start: 12-24-2023 End: 12-25-2023 ambulatory Rani L Shawn [place] [place] Start: 12-24-2023 End: 12-24-2023 Lab Drop off Rani L [facility] Start: 11-10-2023 End: 11-11-2023 ambulatory Rani L Shawn Facility:[facility] Start: 09-24-2023 End: 09-25-2023 ambulatory Rani L Shawn Facility:[facility] Start: 09-15-2023 End: 09-16-2023 ambulatory Rani L Shawn Facility:[facility] Start: 07-23-2023 End: 07-24-2023 ambulatory Rani L Shawn Facility:[facility] Start: 04-13-2023 End: 04-14-2023 ambulatory Rani L Shawn [place] [place] Start: 04-13-2023 End: 04-13-2023 Lab Drop off Rani L [facility] Start: 03-05-2023 End: 03-06-2023 ambulatory Rani L Shawn Facility:[facility] Start: 03-05-2023 End: 03-05-2023 Lab Drop off Rani L [facility] Start: 02-12-2023 End: 02-13-2023 ambulatory Rani L Shawn [place] [place] Start: 02-12-2023 End: 02-12-2023 Lab Drop off Rani L [facility] Start: 02-04-2023 ambulatory Rani Shawn Facility:[facility] Start: 10-15-2022 Office outpatient visit 15 minutes Johanne Kovacs [facility] Start: 10-15-2022 End: 10-15-2022 ambulatory Johanne Kovacs Facility:[facility] Start: 10-15-2022 End: 10-15-2022 ambulatory TRAVEL MED SURG RN-C Johanne Kovacs Work Phone: [facility] Work Phone: Start: 10-15-2022 End: 10-15-2022 Departed Referred TRAVEL MED SURG RN-C Johanne Kovacs Work Phone: [facility] Work Phone: Start: 08-27-2022 End: 08-27-2022 ambulatory Shayna Blum APRN.POLE LIFT OPERATOR Work Phone: Hematology/Oncology Comment on above: Secondary polycythem ia (Primary Dx); Iron overload Start: 08-27-2022 End: 08-27-2022 Patient encounter procedure Shayna Blum APRN.POLE LIFT OPERATOR Work Phone: [facility] Start: 07-06-2022 End: 07-06-2022 Emergency department patient visit LALIT SAVAGELUIGI VAISHNAVI Facility:[facility] Start: 05-19-2022 End: 05-20-2022 ambulatory Ketan Velasquez MD Work Phone: Hematology/Oncology Comment on above: Secondary polycythem ia (Primary Dx) Start: 05-19-2022 End: 05-20-2022 Telemedicine consultation with patient Ketan Velasquez MD Work Phone: [facility] Start: 05-16-2022 End: 05-16-2022 ambulatory KETAN VELASQUEZ [facility] [employer] [facility] Other Start: 05-16-2022 [facility] visit new patient Kendall Jules [facility] Start: 05-15-2022 Chart abstracting Ketan acosta MD Work Phone: Hematology/Oncology Start: 04-26-2022 End: 04-27-[address] LALIT MENDEZ Facility:[facility] Start: 03-29-2022 End: 03-29-2022 ambulatory KEVIN GARDUNO Facility:[facility] Start: 03-15-2022 End: 03-16-[address] LALIT MENDEZ Facility:[facility] Start: 02-21-2022 End: 02-22-[address] LALIT MENDEZ Facility:[facility] Start: 02-18-2022 End: 02-19-[address] LALIT MENDEZ Facility:[facility] Procedures Date Procedure Procedure Detail Performing Clinician Start: 07-06-2022 Antibody screen LALIT CARPENTER Comment on above: Order Comment: Speci men Type: BLOOD SPECIMENOrdering Facility: [facility] Address: [address] [place] [address] Performed By: #### T SCR ####[facility] [id number] [address] Extraction of wisdom tooth J rob Escobar Comment on above: age 18 Plan of Treatment Date Care Activity Detail Author Start: 03-16-2023 Urine microalbumin profile DTAP,TDAP,TD (7 - Td or Tdap) [facility] Start: 11-26-2022 End: 01-26-2023 CBC W Auto Differential panel - Blood CBC + DIFF Lab Routine Secondary polycythemia Iron overload Expected: 11/26/2022, Expires: 01/26/2023 [facility] Work Phone: Comment on above: Expected: 11/26/2022 , Expires: 01/26/2023 Start: 11-26-2022 End: 01-26-2023 Comprehensive metabolic 2000 panel - Serum or Plasma COMP METABOLIC PANEL Lab Routine Secondary polycythemia Iron overload Expected: 11/26/2022, Expires: 01/26/2023 [facility] Work Phone: Comment on above: Expected: 11/26/2022 , Expires: 01/26/2023 Start: 08-24-2022 End: 05-24-2023 CBC W Auto Differential panel - Blood CBC + DIFF Lab Routine Secondary polycythemia Expected: 08/24/2022 (Approximate), Expires: 05/24/2023 [facility] Work Phone: Comment on above: Expected: 08/24/2022 (Approximate), Expires: 05/24/2023 Start: 08-24-2022 End: 05-24-2023 Cobalamin (Vitamin B12) [Mass/volume] in Serum or Plasma VITAMIN B12 BLOOD Lab Routine Secondary polycythemia Expected: 08/24/2022 (Approximate), Expires: 05/24/2023 [facility] Work Phone: Comment on above: Expected: 08/24/2022 (Approximate), Expires: 05/24/2023 Start: 08-24-2022 End: 05-24-2023 Comprehensive metabolic 2000 panel - Serum or Plasma COMP METABOLIC PANEL Lab Routine Secondary polycythemia Expected: 08/24/2022 (Approximate), Expires: 05/24/2023 [facility] Work Phone: Comment on above: Expected: 08/24/2022 (Approximate), Expires: 05/24/2023 Start: 08-24-2022 End: 05-24-2023 Ferritin [Mass/volume] in Serum or Plasma FERRITIN BLD Lab Routine Secondary polycythemia Expected: 08/24/2022 (Approximate), Expires: 05/24/2023 [facility] Work Phone: Comment on above: Expected: 08/24/2022 (Approximate), Expires: 05/24/2023 Start: 08-24-2022 End: 05-24-2023 Folate [Mass/volume] in Serum or Plasma FOLATE SERUM Lab Routine Secondary polycythemia Expected: 08/24/2022 (Approximate), Expires: 05/24/2023 [facility] Work Phone: Comment on above: Expected: 08/24/2022 (Approximate), Expires: 05/24/2023 Start: 08-24-2022 End: 05-24-2023 Iron and Iron binding capacity panel - Serum or Plasma IRON + TIBC Lab Routine Secondary polycythemia Expected: 08/24/2022 (Approximate), Expires: 05/24/2023 [facility] Work Phone: Comment on above: Expected: 08/24/2022 (Approximate), Expires: 05/24/2023 Start: 07-27-2022 [facility] Start: 03-27-2022 Influenza vaccination INFLUENZA (#1) [facility] Start: 07-27-2021 DEPRESSION ASSESSMENT [facility] Start: 02-15-2020 Urine microalbumin profile DTAP,TDAP,TD (1 - Tdap) [facility] Start: 2019 HEPATITIS C SCREENING HEPATITIS C SC REENING [facility] Start: 2019 HIV SCREENING HIV SCREENING [facility] Start: 2015 PEDS TO ADULT TRANSI TION ANNUAL ASSESSMENT PEDS TO ADULT TRANSITION ANNUAL ASSESSMENT [facility] Start: 2013 PEDS TO ADULT TRANSI TION INITIAL DISCUSSION PEDS TO ADULT TRANSITION INITIAL DISCUSSION [facility] Start: 02-15-2012 HPV VACCINE (1 - Mal e 2-dose series) HPV VACCINE (1 - Male 2-dose series) [facility] Start: 2011 MENINGOCOCCAL B: Consider based on risk (1 of 2 - Risk Bexsero 2-dose series) MENINGOCOCCAL B: Consider based on risk (1 of 2 - Risk Bexsero 2-dose series) [facility] Start: 2007 PNEUMOCOCCAL (1 - PCV) PNEUMOCOCCAL (1 - PCV) [facility] Start: 2001 COVID-19 VACCINE (#1) COVID-19 VACCI NE (#1) [facility] Start: 2001 HEPATITIS B (1 of 3 - 3-dose series) HEPATITIS B (1 of 3 - 3-dose series) [facility] Chlamydia trachomati s DNA [Presence] in Unspecified specimen by NELSY with probe detection [facility] Neisseria gonorrhoea e DNA [Presence] in Unspecified specimen by NELSY with probe detection [facility] Trichomonas vaginali s DNA [Presence] in Unspecified specimen by NELSY with probe detection [facility] [place] [facility] Immunizations Immunization Date Immunization Notes Care Provider Fa cili 10-15-2017 meningococcal polysaccharide (groups A, C, Y and W-135) diphtheria toxoid conjugate vaccine (MCV4P) Ketan Velasquez MD Work Phone: [facility] 10-15-2017 varicella virus vaccine Jaison Velasquez MD Work Phone: [facility] 05-03-2015 meningococcal polysaccharide (groups A, C, Y and W-135) diphtheria toxoid conjugate vaccine (MCV4P) Ketan Velasquez MD Work Phone: [facility] 03-16-2013 tetanus toxoid, redu marvel diphtheria toxoid, and acellular pertussis vaccine, adsorbed Ketan Velasquez MD Work Phone: [facility] 08-11-2006 hepatitis A vaccine, pediatric/adolescent dosage, 2 dose schedule Ketan Velasquez MD Work Phone: [facility] 02-23-2006 diphtheria, tetanus toxoids and acellular pertussis vaccine Ketan Velasquez MD Work Phone: [facility] 02-23-2006 measles, mumps and rubella virus vaccine Ketan Velasquez MD Work Phone: [facility] 02-23-2006 poliovirus vaccine, inactivated Ketan Velasquez MD Work Phone: [facility] 02-23-2006 poliovirus vaccine, unspecified formulation Rani Escobar [facility] 09-05-2002 diphtheria, tetanus toxoids and acellular pertussis vaccine Ketan Velasquez MD Work Phone: [facility] 09-05-2002 diphtheria, tetanus toxoids and acellular pertussis vaccine, unspecified formulation Ketan Velasquez MD Work Phone: [facility] 09-05-2002 DTaP, unspecified formulation Rani Shawn [facility] 09-05-2002 haemophilus influenz ae type b vaccine, conjugate unspecified formulation Ketan Velasquez MD Work Phone: [facility] 09-05-2002 Hib, unspecified formulation Rani Shawn [facility] 09-05-2002 varicella virus vaccine Jaison Velasquez MD Work Phone: [facility] 02-23-2002 measles, mumps and rubella virus vaccine Ketan Velasquez MD Work Phone: [facility] 2001 diphtheria, tetanus toxoids and acellular pertussis vaccine Ketan Velasquez MD Work Phone: [facility] 2001 diphtheria, tetanus toxoids and acellular pertussis vaccine, unspecified formulation Ketan Velasquez MD Work Phone: [facility] 2001 DTaP, unspecified formulation Rani Shawn [facility] 2001 haemophilus influenz ae type b conjugate and Hepatitis B vaccine Ketan Velasquez MD Work Phone: [facility] 2001 poliovirus vaccine, inactivated Ketan Velasquez MD Work Phone: [facility] 2001 poliovirus vaccine, unspecified formulation Rani Shawn [facility] 2001 diphtheria, tetanus toxoids and acellular pertussis vaccine Ketan Velasquez MD Work Phone: [facility] 2001 diphtheria, tetanus toxoids and acellular pertussis vaccine, unspecified formulation Ketan Velasquez MD Work Phone: [facility] 2001 DTaP, unspecified formulation Rani Shawn [facility] 2001 haemophilus influenz ae type b conjugate and Hepatitis B vaccine Ketan Velasquez MD Work Phone: [facility] 2001 pneumococcal conjuga te vaccine, 7 valent Ketan Velasquez MD Work Phone: [facility] 2001 poliovirus vaccine, inactivated Ketan Velasquez MD Work Phone: [facility] 2001 poliovirus vaccine, unspecified formulation Rani Shawn [facility] 2001 diphtheria, tetanus toxoids and acellular pertussis vaccine Ketan Velasquez MD Work Phone: [facility] 2001 diphtheria, tetanus toxoids and acellular pertussis vaccine, unspecified formulation Ketan Velasquez MD Work Phone: [facility] 2001 DTaP, unspecified formulation Rani Shawn [facility] 2001 haemophilus influenz ae type b conjugate and Hepatitis B vaccine Ketan Velasquez MD Work Phone: [facility] 2001 pneumococcal conjuga te vaccine, 7 valent Ketan Velasquez MD Work Phone: [facility] 2001 poliovirus vaccine, inactivated Ketan Velasquez MD Work Phone: [facility] 2001 poliovirus vaccine, unspecified formulation Rani Shawn [facility] NEGATED: Highlighted row has not occurred!07-23-2023 influenza virus vaccine, unspecified formulation Rani Shawn [facility] Payers Date Payer Category Payer Unknown [id number] 2022 Self-pay 2022 Department of [facility] ( and others) [id number] 2022 Unknown [id number] 2021 [employer] ( and others) [id number] 2021 Unknown [facility] [id number] 2021-Present [phone] [address] [place] [address] Indemnity [id number] 2001 Unknown [id number] 2.16.840.1.283938.3.579.2 .593 2001 Unknown [id number] 2.16.840.1.677862.3.579.2 .593 2001 Unknown [id number] 2.16.840.1.930158.3.579.2 .593 2001 Unknown [id number] 2.16.840.1.922819.3.579.2 .593 2001 Unknown [id number] 2.16.840.1.615280.3.579.2 .593 2001 Unknown [id number] 2.16.840.1.924604.3.579.2 .727 2001 Unknown [id number] 2.16.840.1.633160.3.579.2 .727 2001 Unknown [id number] 2.16.840.1.953432.3.579.2 .727 2001 Unknown [id number] 2.16.840.1.368171.3.579.2 .727 2001 Unknown [id number] 2.16.840.1.958913.3.579.2 .727 2001 Unknown [id number] 2.16.840.1.550139.3.579.2 .727 2001 Unknown [id number] 2.16.840.1.412358.3.579.2 2001 Unknown [id number] 2.16.840.1.358268.3.579.2 2001 Unknown [id number] 2.16.840.1.531186.3.579.2 2001 Unknown [id number] 2.16.840.1.680308.3.579.2 2001 Unknown [id number] 2.16.840.1.652451.3.579.2 2001 Unknown [id number] 2.16.840.1.025929.3.579.2 2001 Unknown [id number] 2.16.840.1.838928.3.579.2 2001 Unknown [id number] 2.16.840.1.296067.3.579.2 2001 Unknown [id number] 2.16840.1.373723.3.579.2 2001 Unknown [id number] 2.16.840.1.290662.3.579.2 2001 Unknown [id number] 2.16.840.1.938630.3.579.2 2001 Unknown [id number] 2.16.840.1.260454.3.579.2 2001 Unknown [id number] 2.16.840.1.144418.3.579.2 2001 Unknown [id number] 2.16.840.1.034624.3.579.2 2001 Unknown [id number] 2.16.840.1.752886.3.579.2 2001 Unknown [id number] 2.16.840.1.943590.3.579.2 2001 Unknown [id number] 2.16.840.1.656170.3.579.2 7 1959 [employer] ( and others) [id number] [employer] ( and others) [id number] 2.16.840.1.197558.19 Unknown [employer] [id number] Unknown [id number] 2.16.840.1.683376.3.579.2 .531 Social History Date Type Detail Facility Start: 05-15-2022 End: 05-16-2022 Tobacco smoking status NHIS Smokes tobacco daily [facility] History of tobacco use Cigarette Smoker C [facility] Start: 05-15-2022 End: 05-16-2022 Cigarettes smoked current (pack per day) - Reported 1 [facility] Start: 2001 Sex Assigned At Not on file [facility] Sex Assigned At [facility] History of tobacco use Passive smoker [facility] Start: 05-16-2022 Alcohol intake Not Asked [facility] Start: 05-09-2022 End: 05-19-2022 Exposure to SARS-CoV-2 (event) Not sure [facility] Start: 2001 Sex Assigned At Male F [facility] Start: 02-12-2023 End: 04-13-2023 Tobacco smoking status Light tobacco smoker (finding) [facility] Start: 12-24-2023 End: 06-27-2024 Tobacco smoking status Heavy tobacco smoker (finding) [facility] Tobacco smoking status Never [facility] Functional Status Date Assessment Result Facility 03-31-2024 Functional Status N/A [facility] Clinical Notes 05-16-2022 to 06-27-2024 LaboratoryLaboratory Note Date & Type Note Facility 06-27-2024 Evaluation + Plan note Diagnostic Tests PendingChlam/GC/Trich,NELSY 06/27/24 [facility] 03-31-2024 Hospital Discharg e instructions Patient Education 03/31/2024 15:26:18 Sinus Infection, Adult, Nxwx-tr-Glaz Sinus Infection, Adult A sinus infection is soreness and swelling (inflammation) of your sinuses. Sinuses are hollow spaces in the bones around your face. They are located: Around your eyes. In the middle of your forehead. Behind your nose. In your cheekbones. Your sinuses and nasal passages are lined with a fluid called mucus. Mucus drains out of your sinuses. Swelling can trap mucus in your sinuses. This lets germs (bacteria, virus, or fungus) grow, which leads to infection. Most of the time, this condition is caused by a virus. What are the causes? Allergies. Asthma. Germs. Things that block your nose or sinuses. Growths in the nose (nasal polyps). Chemicals or irritants in the air. A fungus. This is rare. What increases the risk? Having a weak body defense system (immune system). Doing a lot of swimming or diving. Using nasal sprays too much. Smoking. What are the signs or symptoms? The main symptoms of this condition are pain and a feeling of pressure around the sinuses. Other symptoms include: Stuffy nose (congestion). This may make it hard to breathe through your nose. Runny nose (drainage). Soreness, swelling, and warmth in the sinuses. A cough that may get worse at night. Being unable to smell and taste. Mucus that collects in the throat or the back of the nose (postnasal drip). This may cause a sore throat or bad breath. Being very tired (fatigued). A fever. How is this diagnosed? Your symptoms. Your medical history. A physical exam. Tests to find out if your condition is short-term (acute) or long-term (chronic). Your doctor may: ?Check your nose for growths (polyps). ?Check your sinuses using a tool that has a light on one end (endoscope). ?Check for allergies or germs. ?Do imaging tests, such as an MRI or CT scan. How is this treated? Treatment for this condition depends on the cause and whether it is short-term or long-term. If caused by a virus, your symptoms should go away on their own within 10 days. You may be given medicines to relieve symptoms. They include: ?Medicines that shrink swollen tissue in the nose. ?A spray that treats swelling of the nostrils. ?Rinses that help get rid of thick mucus in your nose (nasal saline washes). ?Medicines that treat allergies (antihistamines). ?Hqkj-qya-uvnwfpv pain relievers. If caused by bacteria, your doctor may wait to see if you will get better without treatment. You may be given antibiotic medicine if you have: ?A very bad infection. ?A weak body defense system. If caused by growths in the nose, surgery may be needed. Follow these instructions at home: Medicines Take, use, or apply aceb-kde-zsxydla and prescription medicines only as told by your doctor. These may include nasal sprays. If you were prescribed an antibiotic medicine, take it as told by your doctor. Do not stop taking it even if you start to feel better. Hydrate and humidify Drink enough water to keep your pee (urine) pale yellow. Use a cool mist humidifier to keep the humidity level in your home above 50%. Breathe in steam for 10 15 minutes, 3 4 times a day, or as told by your doctor. You can do this in the bathroom while a hot shower is running. Try not to spend time in cool or dry air. Rest Rest as much as you can. Sleep with your head raised (elevated). Make sure you get enough sleep each night. General instructions Put a warm, moist washcloth on your face 3 4 times a day, or as often as told by your doctor. Use nasal saline washes as often as told by your doctor. Wash your hands often with soap and water. If you cannot use soap and water, use hand head of sales and marketing. Do not smoke. Avoid being around people who are smoking (secondhand smoke). Keep all follow-up visits. Contact a doctor if: You have a fever. Your symptoms get worse. Your symptoms do not get better within 10 days. Get help right away if: You have a very bad headache. You cannot stop vomiting. You have very bad pain or swelling around your face or eyes. You have trouble seeing. You feel confused. Your neck is stiff. You have trouble breathing. These symptoms may be an emergency. Get help right away. Call 911. Do not wait to see if the symptoms will go away. Do not drive yourself to the hospital. Summary A sinus infection is swelling of your sinuses. Sinuses are hollow spaces in the bones around your face. This condition is caused by tissues in your nose that become inflamed or swollen. This traps germs. These can lead to infection. If you were prescribed an antibiotic medicine, take it as told by your doctor. Do not stop taking it even if you start to feel better. Keep all follow-up visits. This information is not intended to replace advice given to you by your health care provider. Make sure you discuss any questions you have with your health care provider. Document Revised: 06/17/2022 Document Reviewed: 06/17/2022 [employer] Patient Education 2023 [email or web address] Follow Up Care 03/31/2024 09:51:07 With:Rani Vasquez FAM, MED Address:Unknown When: Unknown [facility] 03-31-2024 Note Patient Education Infectious Disease Sinus Infection, Adult A sinus infection is soreness and swelling (inflammation) of your sinuses. Sinuses are hollow spaces in the bones around your face. They are located: ? Around your eyes. ? In the middle of your forehead. ? Behind your nose. ? In your cheekbones. Your sinuses and nasal passages are lined with a fluid called mucus. Mucus drains out of your sinuses. Swelling can trap mucus in your sinuses. This lets germs (bacteria, virus, or fungus) grow, which leads to infection. Most of the time, this condition is caused by a virus. What are the causes? ? Allergies. ? Asthma. ? Germs. ? Things that block your nose or sinuses. ? Growths in the nose (nasal polyps). ? Chemicals or irritants in the air. ? A fungus. This is rare. What increases the risk? ? Having a weak body defense system (immune system). ? Doing a lot of swimming or diving. ? Using nasal sprays too much. ? Smoking. What are the signs or symptoms? The main symptoms of this condition are pain and a feeling of pressure around the sinuses. Other symptoms include: ? Stuffy nose (congestion). This may make it hard to breathe through your nose. ? Runny nose (drainage). ? Soreness, swelling, and warmth in the sinuses. ? A cough that may get worse at night. ? Being unable to smell and taste. ? Mucus that collects in the throat or the back of the nose (postnasal drip). This may cause a sore throat or bad breath. ? Being very tired (fatigued). ? A fever. How is this diagnosed? ? Your symptoms. ? Your medical history. ? A physical exam. ? Tests to find out if your condition is short-term (acute) or long-term (chronic). Your doctor may: ? Check your nose for growths (polyps). ? Check your sinuses using a tool that has a light on one end (endoscope). ? Check for allergies or germs. ? Do imaging tests, such as an MRI or CT scan. How is this treated? Treatment for this condition depends on the cause and whether it is short-term or long-term. ? If caused by a virus, your symptoms should go away on their own within 10 days. You may be given medicines to relieve symptoms. They include: ? Medicines that shrink swollen tissue in the nose. ? A spray that treats swelling of the nostrils. ? Rinses that help get rid of thick mucus in your nose (nasal saline washes). ? Medicines that treat allergies (antihistamines). ? Ebuz-xpl-wrenxqk pain relievers. ? If caused by bacteria, your doctor may wait to see if you will get better without treatment. You may be given antibiotic medicine if you have: ? A very bad infection. ? A weak body defense system. ? If caused by growths in the nose, surgery may be needed. Follow these instructions at home: Medicines ? Take, use, or apply havd-uol-wchulxp and prescription medicines only as told by your doctor. These may include nasal sprays. ? If you were prescribed an antibiotic medicine, take it as told by your doctor. Do not stop taking it even if you start to feel better. Hydrate and humidify ? Drink enough water to keep your pee (urine) pale yellow. ? Use a cool mist humidifier to keep the humidity level in your home above 50%. ? Breathe in steam for 10?15 minutes, 3?4 times a day, or as told by your doctor. You can do this in the bathroom while a hot shower is running. ? Try not to spend time in cool or dry air. Rest ? Rest as much as you can. ? Sleep with your head raised (elevated). ? Make sure you get enough sleep each night. General instructions ? Put a warm, moist washcloth on your face 3?4 times a day, or as often as told by your doctor. ? Use nasal saline washes as often as told by your doctor. ? Wash your hands often with soap and water. If you cannot use soap and water, use hand head of sales and marketing. ? Do not smoke. Avoid being around people who are smoking (secondhand smoke). ? Keep all follow-up visits. Contact a doctor if: ? You have a fever. ? Your symptoms get worse. ? Your symptoms do not get better within 10 days. Get help right away if: ? You have a very bad headache. ? You cannot stop vomiting. ? You have very bad pain or swelling around your face or eyes. ? You have trouble seeing. ? You feel confused. ? Your neck is stiff. ? You have trouble breathing. These symptoms may be an emergency. Get help right away. Call 911. ? Do not wait to see if the symptoms will go away. ? Do not drive yourself to the hospital. Summary ? A sinus infection is swelling of your sinuses. Sinuses are hollow spaces in the bones around your face. ? This condition is caused by tissues in your nose that become inflamed or swollen. This traps germs. These can lead to infection. ? If you were prescribed an antibiotic medicine, take it as told by your doctor. Do not stop taking it even if you start to feel better. ? Keep (more content not included)... [facility] 12-24-2023 Evaluation + Plan note Diagnostic Tests PendingChlam/GC/Trich,NELSY 12/24/23 Future Scheduled TestsO & P Exam, Routine 04/13/23Rotavirus Ab 04/13/23Clostridium Difficile PCR 04/13/23 [facility] 04-13-2023 Evaluation + Plan note Future Scheduled TestsO & P Exam, Routine 04/13/23Rotavirus Ab 04/13/23Clostridium Difficile PCR 04/13/23 [facility] 03-05-2023 Evaluation + Plan note Diagnostic Tests PendingRPR with Conf Rfx 03/05/23HIV Screen 4th Generation wRfx 03/05/23 [facility] 02-12-2023 Evaluation + Plan note Diagnostic Tests PendingChlam/GC/Trich,NELSY 02/12/23 [facility] 10-15-2022 Evaluation note Encounter Date Diagnosis Assessment Notes Sep, High risk sexual behavior, unspecified type (ICD-10 - Z72.51) Detecting and treating STDs material was printed Sep, Dysuria (ICD-10 - R30.0) Drink plenty fluids, get plenty of rest. Take the doxycycline as prescribed until gone. You will be notified of any positive test results as they come in. No intercourse for 2 weeks. Follow-up with your family physician if you continue with the testicular pain. Go to the ER for worsening symptoms or concerns. Patient uses to get treatment for chlamydia due to his exposure. He also chooses to wait for treatment of gonorrhea and trichomonas only if the culture is positive. [facility] Other 02-01-2023 NoteHNO ID: [id number] Author: Shayna Blum APRN.POLE LIFT OPERATOR Service: ? Author Type: Nurse Practitioner Type: Progress Notes Filed: 08/29/2022 12:05 PM Note Text: NAME: Margareth Briceno CLINIC NO.: [id number] DATE OF SERVICE: August 27, 2022 (E[place]) Some elements in this clinic note that are critical to medical decision making have been carefully reviewed and included from a prior clinic note dated: May 16, 2022 (Dr. Velasquez) Referring Provider: Dr. Lalit Mendez Additional Clinicians involved in Margareth Briceno's care: DIAGNOSIS: Elevated iron ASSESSMENT: 22 year old man with current tobacco use and apparent secondary polycythemia presenting with concern for hemochromatosis with elevated iron levels. Since he has been giving blood regularly, it is hard to determine what his iron saturations may have been originally, however, his ferritin has never really been elevated and therefore he most likely does not have an issue with iron metabolism. I see a bigger issue with secondary polycythemia but this is directly related to his tobacco use. His symptoms are largely related to anxiety with respect to tachycardia, palpitations and subsequent dizziness. PLAN: Follow up in [address] Velasquez please. Will notify patient of iron studies and lab results from today. HPI: CASE HISTORY: 04/26/2022 laboratories: Iron 187 03/29/2022 laboratories: Drug screen negative, CBC: 6.9 > 16.6/46.3 < 186. CMP: No clinically significant abnormalities 03/29/2022 ER visit for abdominal pain, palpitations, tachycardia, anxiety attack. 02/21/2022 ferritin 114 Updated Visit, August 27, 2022: Margareth Bricneo returns for scheduled follow-up. Since his last visit there has been no significant medical changes. He denies bleeding and abnormal bruising. No fever, chills, night sweats or signs/symptoms of infection. He denies cough, shortness of breath and other pulmonary complaints. He continues to smoke approximately 1 pack/day. Initial Visit, May 16, 2022: Margareth Briceno presents today Hematology and Oncology evaluation. He is a 22 year old male who is accompanied by his mother Yumiko for work-up of iron overload. He recently moved from [place] and notes that in July 2021 his iron level was high and therefore he started giving blood. In January his iron was 240 and again gave more blood and then had recent laboratories which I have tried to summarize above. Does not appear that his ferritin level has been elevated and prior available laboratories. He has a prior history of substance abuse and so has moved to the area, is working, and has limited his social life in order to abstain. In compensatory manner, he smokes regularly. Reviewing his laboratories reveals mild polycythemia either related to his age or his tobacco use. He notes multiple symptoms of tachycardia, dizziness and presyncopal episodes. He has become increasingly anxious that iron deposition may be causing some of the symptoms. I have reassured him as much as possible and encouraged him to continue abstaining from his prior history of substance abuse. I also educated him regarding iron deposition and noted that since his ferritin level has never been elevated, he is unlikely to have issues or concern for hemochromatosis. He can stop giving blood in we can observe him more carefully and see if his ferritin level rises. REVIEW OF SYSTEMS Per HPI and otherwise negative by full review of organ systems. ECOG PERFORMANCE STATUS: 0 PHYSICAL EXAMINATION: Vitals: BP 115/53 Pulse 75 Temp (Src) 97.8 (Temporal) Resp 16 Ht 5' 7.008 (1.70m) Wt 114 lb 3.2 oz (51.8kg) SpO2 98% BMI 17.88 kg/(m2). Body surface area is 1.56 meters squared. Exam limited to gross visualization where appropriate due to COVID-19. Gen.: This is an age-appropriate patient in no acute distress. Head: Appears atraumatic with no visible lesions. Eyes: Pupils equally round and reactive to light, extraocular muscles are intact. Neck: Supple. Mouth: Masked. Respiratory: Appears to be respiring comfortably. Neurologic: Nonfocal to gross visualization. Alert and oriented ?3. Psychiatric: No evidence of inappropriate anxiety or depression. Skin: Visible areas of skin without rash, lesions, wounds or petechiae. ALLERGIES: ALLERGIES No Known Allergies MEDICATIONS: hydrOXYzine pamoate (VISTARIL) 50 mg capsule Take 50 mg by mouth three times daily as needed. LABORATORY FRANCO (more content not included)...[facility] 08-27-2022 Nurse Note* Heaven Hall MA - 08/27/2022 2:53 PM EST Patient complains of chest pains intermittently on Left side of chest x7-8 months. Heaven Hall MA documented in this encounterSt[facility] History of Present illness Narrative* Shanya Blum APRN.[employer] OPERATOR - 08/27/2022 2:51 PM EST Images from the original note were not included. NAME: Margareth Briceno CLINIC NO.: [id number] DATE OF SERVICE: August 27, 2022 ([place]) Some elements in this clinic note that are critical to medical decision making have been carefully reviewed and included from a prior clinic note dated: May 16, 2022 (Dr. Velasquez) Referring Provider: Dr. Lalit Mendez Additional Clinicians involved in Margareth Briceno's care: DIAGNOSIS: Elevated iron ASSESSMENT: 22 year old man with current tobacco use and apparent secondary polycythemia presentingwith concern for hemochromatosis with elevated iron levels. Since he has been giving blood regularly, it is hard to determine what his iron saturations may have been originally, however, his ferritinhas never really been elevated and therefore he most likely does not have an issue with iron metabolism. I see a bigger issue with secondary polycythemia but this is directly related to his tobacco use. His symptoms are largely related to anxiety with respect to tachycardia, palpitations and subsequent dizziness. PLAN: Follow up in [address] Velasquez please. Will notify patient of iron studies and lab results from today. HPI: CASE HISTORY: 04/26/2022 laboratories: Iron 187 03/29/2022 laboratories: Drug screen negative, CBC: 6.9 > 16.6/46.3 < 186. CMP: No clinicallysignificant abnormalities 03/29/2022 ER visit for abdominal pain, palpitations, tachycardia, anxiety attack. 02/21/2022 ferritin 114 Updated Visit, August 27, 2022: Margareth Briceno returns for scheduled follow-up. Since his last visit there has been no significant medical changes. He denies bleeding and abnormal bruising. No fever, chills, night sweats or signs/symptoms of infection. He denies cough, shortness of breath and other pulmonary complaints. He continues to smoke approximately 1 pack/day. Initial Visit, May 16, 2022: Margareth Briceno presents today Hematology and Oncology evaluation. He is a 22 year old male who is accompanied by his mother Yumiko for work-up of iron overload. [place] 2021 his iron level was high and therefore he started giving blood. In January his iron was 240 and again gave more blood and then had recent laboratories which I have tried tosummarize above. Does not appear that his ferritin level has been elevated and prior available laboratories. He has a prior history of substance abuse and so has moved to the area, is working, and has limitedhis social life in order to abstain. In compensatory manner, he smokes regularly. Reviewing his laboratories reveals mild polycythemia either related to his age or his tobacco use. He notes multiple symptoms of tachycardia, dizziness and presyncopal episodes. He has become increasingly anxious that iron deposition may be causing some of the symptoms. I have reassured him as much as possible and encouraged him to continue abstaining from his prior history of substance abuse. I also educated him regarding iron deposition and noted that since his ferritin level has never been elevated, he is unlikely to have issues or concern for hemochromatosis. He can stop giving blood in we can observe him more carefully and see if his ferritin level rises. REVIEW OF SYSTEMS Per HPI and otherwise negative by full review of organ systems. ECOG PERFORMANCE STATUS: 0 PHYSICAL EXAMINATION: Vitals: BP 115/53 Pulse 75 Temp (Src) 97.8 (Temporal) Resp 16 Ht 5' 7.008 (1.70m) Wt 114lb 3.2 oz (51.8kg) SpO2 98% BMI 17.88 kg/(m^2). Body surface area is 1.56 meters squared. Exam limited to gross visualization where appropriate due to COVID-19. Gen.: This is an age-appropriate patient in no acute distress. Head: Appears atraumatic with no visible lesions. Eyes: Pupils equally round and reactive to light, extraocular muscles are intact. Neck: Supple. Mouth: Masked. Respiratory: Appears to be respiring comfortably. Neurologic: Nonfocal to gross visualization. Alert and oriented 3. Psychiatric: No evidence of inappropriate anxiety or depression. Skin: Visible areas of skin without rash, lesions, wounds or petechiae. ALLERGIES: ALLERGIES No Known Allergies MEDICATIONS: hydrOXYzine pamoate (VISTARIL) 50 mg capsule Take 50 mg by mouth three times daily as needed. LABORATORY VALUES: Hemoglobin (g/dL) Date Value 08/27/2022 17.2 Hematocrit (%) Date Value 08/27/2022 48.2 WBC (k/uL) Date Value 08/27/2022 8.51 Platelet Count (k/uL) Date Value 08/27/2022 195 DIAGNOSIS: (D75.1) Secondary polycythemia (primary encounter diagnosis) (E83.19) Iron overload PAST MEDICAL HISTORY Diagnosis Date Anxiety disorder Iron overload 04/2022 No past surgical history on file. Social History Tobacco Use Smoking status: Every Day Packs/day: 1.00 Years: 2.00 Pack years: 2.00 Types: Cigarettes Passive exposure: Current No family history on file. Shayna Blum APRN.[facility] Hematology and Oncology Services Provided at: [facility], [place], [place] CC: SELF I spent a total of 20 minutes on the date of the service which included preparing to see the patient, [id number] patient care, completing clinical documentation, obtaining and/or reviewing separately obtained history, performing a medically appropriate examination, counseling and educating the pat ient/family/caregiver, ordering medications, tests, or procedures, independently interpreting results (not separately reported), and communicating results to the patient/family/caregiver. Dr. Lalit Mendez [address] [facility] [id number] documented in this encounterSt. [facility]12-11-[facility]22 NoteHNO ID: [id number] Author: ANA CRISTINA Gibson Service: ? Author Type: Commercial Collections Driver Type: Progress Notes Filed: 07/06/2022 3:18 AM Note Text: Radiology Service Progress Note PATIENT NAME: Margareth Briceno DATE OF SERVICE: July 06, 2022 TIME: 3:17 AM PATIENT IDENTITY VERIFICATION COMPLETED USING TWO (2) IDENTIFIERS: Name and Date of confirmed by patient verbally. FALL SCREENING: Has the patient had 2 falls in the last year or 1 fall with injury or currently using an Ambulatory Assistive Device (Walker, Cane, Wheelchair, Crutches, etc.)? No PATIENT GENDER DATA: Male PATIENT RELEVANT IMPLANT DATA REVIEWED: Not Applicable RADIOLOGY DEPARTMENT: CT; Exam(s) Completed: Brain , Face/Mandible, and Spine PERIPHERAL IV DATA: Not applicable SIGNED BY: ANA CRISTINA Gibson July 06, 2022 3:17 [facility]10-24-2022 NoteHNO ID: [id number] Author: Ketan Velasquez MD Service: ? Author Type: Physician Type: Progress Notes Filed: 05/24/2022 9:52 AM Note Text: AMBULATORY TELEPHONE VISIT Margareth Briceno has consented to this telephone encounter. Persons Present: patient Chief Complaint/Reason: Polycythemia, iron metabolism HPI: I called [facility] and reviewed his laboratories indicating that he has secondary polycythemia but no evidence of hemochromatosis. I encouraged him to cut back tobacco use as his primary focus. Data Reviewed: Most recent labs Assessment: (D75.1) Secondary polycythemia (primary encounter diagnosis) No evidence of hemochromatosis. Plan: Follow-up in 3 months with laboratories done the same day. Total Time Spent: 10 minutes Ketan Velasquez MD CC: Dr. Lalit [facility]endezOhio [facility] History of Present illness Narrative* Ketan Velasquez MD - 05/19/2022 5:20 PM EDT AMBULATORY TELEPHONE VISIT Margareth Briceno has consented to this telephone encounter. Persons Present: patient Chief Complaint/Reason: Polycythemia, iron metabolism HPI: I called [facility] and reviewed his laboratories indicating that he has secondary polycythemia but no evidence of hemochromatosis. I encouraged him to cut back tobacco use as his primary focus. Data Reviewed: Most recent labs Assessment: (D75.1) Secondary polycythemia (primary encounter diagnosis) No evidence of hemochromatosis. Plan: Follow-up in 3 months with laboratories done the same day. Total Time Spent: 10 minutes Ketan Velasquez MD CC: Dr. Lalit Mendez documented in this encounterSt. [facility]10-21-2022 NoteHNO ID: [id number] Author: Ketan Velasquez MD Service: ? Author Type: Physician Type: Progress Notes Filed: 05/25/2022 12:01 PM Note Text: NAME: Margareth Briceno [facility] NO.: [id number] DATE OF SERVICE: May 16, 2022 Referring Provider: Lalit Mendez Consultation requested by Dr. Mendez for an opinion regarding Mr. Margareth Briceno, and my final recommendations will be communicated back to the requesting physician by way of shared medical record or letter via US mail. Additional Clinicians involved in Margareth Briceno's care: DIAGNOSIS: Elevated iron ASSESSMENT: 22 year old man with current tobacco use and apparent secondary polycythemia presenting with concern for hemochromatosis with elevated iron levels. Since he has been giving blood regularly, it is hard to determine what his iron saturations may have been originally, however, his ferritin has never really been elevated and therefore he most likely does not have an issue with iron metabolism. I see a bigger issue with secondary polycythemia but this is directly related to his tobacco use. His symptoms are largely related to anxiety with respect to tachycardia, palpitations and subsequent dizziness. PLAN: Labs today HFE possible Call results Thursday decide on HFE testing. HPI: CASE HISTORY: 04/26/2022 laboratories: Iron 187 03/29/2022 laboratories: Drug screen negative, CBC: 6.9 > 16.6/46.3 < 186. CMP: No clinically significant abnormalities 03/29/2022 ER visit for abdominal pain, palpitations, tachycardia, anxiety attack. 02/21/2022 ferritin 114 Initial Visit, May 16, 2022: Margareth Briceno presents today Hematology and Oncology evaluation. He is a 22 year old male who is accompanied by his mother Yumiko for work-up of iron overload. He recently moved from [place] and notes that in July 2021 his iron level was high and therefore he started giving blood. In January his iron was 240 and again gave more blood and then had recent laboratories which I have tried to summarize above. Does not appear that his ferritin level has been elevated and prior available laboratories. He has a prior history of substance abuse and so has moved to the area, is working, and has limited his social life in order to abstain. In compensatory manner, he smokes regularly. Reviewing his laboratories reveals mild polycythemia either related to his age or his tobacco use. He notes multiple symptoms of tachycardia, dizziness and presyncopal episodes. He has become increasingly anxious that iron deposition may be causing some of the symptoms. I have reassured him as much as possible and encouraged him to continue abstaining from his prior history of substance abuse. I also educated him regarding iron deposition and noted that since his ferritin level has never been elevated, he is unlikely to have issues or concern for hemochromatosis. He can stop giving blood in we can observe him more carefully and see if his ferritin level rises. REVIEW OF SYSTEMS Per HPI and otherwise negative by full review of organ systems. ECOG PERFORMANCE STATUS: 0 PHYSICAL EXAMINATION: Vitals: BP 107/60 Pulse 80 Temp (Src) 97.5 (Temporal) Resp 16 Ht 5' 7 (1.70m) Wt 112 lb 3.2 oz (50.9kg) SpO2 98% BMI 17.57 kg/(m2). Body surface area is 1.55 meters squared. General:This is an age-appropriate patient in no acute distress. Head: Atraumatic, symmetric with no lesions visible. Eyes: Pupils equally round and reactive to light, extraocular muscles intact. Neck: Supple Mouth: Mucous membranes are moist, no thrush is noted. Lungs: Clear to auscultation bilaterally with no wheezes crackles or rales. Cardiovascular: Regular rate and rhythm with no murmurs or gallops. Peripheral pulses: Normal. Gastrointestinal: Soft, nontender, normoactive bowel sounds, with no appreciable hepatosplenomegaly. Musculoskeletal: No appreciable bony abnormalities or tenderness. Extremities: Lower extremities without edema. Neurologic: Nonfocal to gross visualization. Alert and oriented ?3. Psychiatric: No evidence of inappropriate anxiety or depression. Skin: No overt rashes wounds or petechiae. Lymph node exam: No appreciable lymphadenopathy in cervical supraclavicular or axillary lymph node chains. ALLERGIES: ALLERGIES No Known Allergies MEDICATIONS: acetaminophen (TYLENOL ORAL) Take by mouth. hydrOXYzine pamoate (VISTARIL) 50 mg capsule Take 50 mg by mouth three times daily as needed. (more content not included)...[facility] Evaluation note* Encounter Date Diagnosis Assessment Notes Treatment Notes Treatment Clinical Notes Apr, Diarrhea (ICD-10 - R19.7) will proceed with colonoscopy at this time Apr, Change in bowel function (ICD-10 - R19.4) [employer] [employer] Other Evaluation note* Diagnosis Secondary polycythemia- Primary Polycythemia, secondary documented in this encounter [facility] note* Diagnosis Secondary polycythemia- Primary Polycythemia, secondary Iron overload Other disorders of iron metabolism documented in this encounter [facility] noteNo assessment information availableL[facility] Work Phone: History general Narrative - Reported* Type Description Date Surgical History wisdom teeth extract [facility] [email or web address] Other Hospital course Narrative No data available for this section [facility] No data available for this section [facility] No data available for this section [facility] HospitalReason for visit NarrativePATIENT HERE AT THE REQUEST OF DR. MENDEZ FOR EVALUATION & TREATMENT OF DIARRHEA., PATIENT STATES THAT THIS IS NOT EVERYTIME USING THE BATHROOM BUT MORE OFTEN FOR ABOUT 2 YEARS. PATIENT STATES HEWAS USING THE BATHROOM ABOUT 5 TIMES A DAY., PATIENT HAS NOT HAD [facility]em[facility] [email or web address] Other Summary Purpose Family History No Family History Records FoundNo Family History Records FoundNo Family History Records FoundNo Family History Records Found No data available for this section No Family History Records Found No data available for this section No data available for this section No Family History Records FoundNo Family History Records Found Advance Directives No Advanced Directives Records FoundNo Advanced Directives Records FoundNo Advanced Directives Records FoundNo Advanced Directives Records FoundNo Advanced Directives Records FoundNo Advanced Directives Records FoundNo Advanced Directives Records Found Chief Complaint and Reason for Visit Chief Complaint High risk sexual beh avior, unspecified type Additional Source Comments Source Comments (unrecognize d section and content) In the event this informatio n is protected by the [facility] Confidentiality of Alcohol and Drug Abuse Patient Records regulations: The Federal rules restrict any use of the information to criminally investigate or prosecute any alcohol or drug abuse patient.[facility] HospitalIn the event this information is protected by the Federal Confidentiality of Alcohol and Drug Abuse Patient Records regulations: The Federal rules restrict any use of the information to criminally investigate or prosecute any alcohol or drug abuse patient.[facility] HospitalIn the event this information is protected by the Federal Confidentiality of Alcohol and Drug Abuse Patient Records regulations: The Federal rules restrict any use of the information to criminally investigate or prosecute any alcohol or drug abuse patient.[facility] Reason for Visit (unrecogniz ed section and content) Reason Comments Established Patient Reason Comments Iron Overload Follow up Specialty Diagnoses / Procedures Referred By Contac t Referred To Contact Hematology/Oncology / HEMATOLOGY/ONCOLOGY Diagnoses Follow-up exam 3 month follow up Procedures OFFICE/OUTPATIENT ESTABLISHED HIGH MDM 40-54 MIN EST PATIENT Self Ketan Velasquez MD [address] [place] [address] [place] [address] Referral ID Status Reason Start Date Expiration Date Visits Re quested Visits Authorized [id number] Denied 08/27/2022 11/25/2022 1 0 Care Teams (unrecognized sec tion and content) Manager Car Relationship Specialty Start Date End Date Lalit Mendez MD [address] [place] [address] PCP - General Family Medicine 05/16/22 Manager Car Relationship Specialty Start Date End Date Lalit Mendez MD [address] [place] [address] PCP - General Family Medicine 05/16/22 Team Status: Inactive Member Role Status Dates ALFIE TurnerC Attending Provider Active (unrecognized sect ion and content) No Status Records FoundNo Status Records FoundNo Status Records FoundNo Status Records FoundNo Status Records FoundNo Status Records FoundNo Status Records Found INFORMATION SOURCE (unrecogn ized section and content) DATE CREATED AUTHOR 07/06/2022 [facility] DATE CREATED AUTHOR AUTHOR'S ORGANIZ ATION 07/17/2022 [facility] DATE CREATED AUTHOR AUTHOR'S ORGANIZ ATION 08/30/2022 [facility] DATE CREATED AUTHOR AUTHOR'S ORGANIZ ATION 10/03/2023 [facility] DATE CREATED AUTHOR AUTHOR'S ORGANIZ ATION 12/25/2023 [facility] DATE CREATED AUTHOR AUTHOR'S ORGANIZ ATION 06/29/2024 [facility] DATE CREATED AUTHOR AUTHOR'S ORGANIZ ATION 09/17/2024 [facility] Goals (unrecognized section and content) Goals may be documented in a n alternate section FOR RECORDS PERTAINING TO PATIENTS WHO ARE OR HAVE BEEN ENROLLED IN A CHEMICAL DEPENDENCY/SUBSTANCEABUSE PROGRAM, SOME INFORMATION MAY BE OMITTED. This clinical summary was aggregated from multiple sources. Caution should be exercised in using it in the provision of clinical care. This summary normalizes information from multiple sources, and as a consequence, information in this document may materially change the coding, format and clinical context of patient data. In addition, data may be omitted in some cases. CLINICAL DECISIONS SHOULD BE BASED ON THE PRIMARY CLINICAL RECORDS. [facility] [employer] provides no warranty or guarantee of the accuracy or completeness of information in this document.
--- NOTE | 2024-10-24 19:48 | ED_ITS ---
HPI - SOB/Dyspnea General Chief Complaint: Shortness of Breath/Dyspnea Stated Complaint: SOB Time Seen by Provider: 10/24/24 19:35 Source: patient Mode of arrival: walk-in Limitations: no limitations History of Present Illness HPI Narrative: This 24-year-old male who states he has a history of anxiety and panic attacks but is not having 1 now presents for evaluation of numbness and tingling starting from his feet and going up to his shoulders. The patient states that over the weekend he drank heavily. He states he drank approximately a case of beer and 5 shots of alcohol. The next couple of days he did not feel well and was lying in his bed tonight when he suddenly felt pins and needle sensation in his lower extremities that went up to his shoulders and suddenly became short of breath. He denies any chest pain or fever. He states he has been drinking a lot of water and has been urinating excessively. He denies a history of diabetes. He is not having any nausea or vomiting but did have nausea or vomiting on Thursday night after his excessive drinking. He denies any abdominal pain. He has not had a fever but states last week he had an episode of cold sweats. He denies any diarrhea. He states he has a family history of tachycardia. He states he has talked to his family physician about all of his symptoms but he does not think they are taking him seriously. He does admit to tobacco use. The symptoms of paresthesias are starting to resolve after coming to the emergency department. Related Data Home Medications ?Medication ?Instructions ?Recorded ?Confirmed No Known Home Medications 10/24/24 10/24/24 Allergies Allergy/AdvReac Type Severity Reaction Status Date / Time No Known Drug Allergies Allergy Verified 10/24/24 19:35 Review of Systems ROS Status of ROS 10 or more systems reviewed and unremark able except as noted in history and below PFSH PFSH Social History Little interest or pleasure in doing things: not at all Feeling down, depressed, or hopeless: not at all Exam Narrative Exam Narrative: Vital signs and Nursing Notes reviewed: Patient is afebrile with a normal pulse, normal blood pressure, he is not hypoxic with pulse ox of 100% on room air General: Awake, alert, oriented, extremely thin adult male, rapid pressured speech, no respiratory distress HEENT: Normocephalic atraumatic, mucous membranes are pink and dry, no scleral icterus noted Neck: Supple, no meningeal signs, no anterior or posterior cervical lymphadenopathy Chest: Lungs are clear to auscultation with good air entry, there is no wheezing rhonchi or rales appreciated no accessory muscle use, patient is speaking in complete sentences-no chest wall tenderness to palpation CVS: Regular rate and rhythm S1-S2, no murmurs rubs or gallops, pulses are brisk and equal bilaterally ABD: Soft, nondistended, nontender, no rebound guarding or rigidity, bowel sounds are normal, no pulsatile masses appreciated Extremities: Moving all extremities, no lower extremity tenderness or swelling noted, negative Homans' sign, pulses are brisk and equal bilaterally Skin: Normal in appearance without rash,pallor, petechiae or purpura-multiple tattoos Neuro: No focal deficits Psych: Admits to history of anxiety but denies he is anxious at this time however has rapid pressured speech Constitutional Vital Signs, click to edit/add: Last Vital Signs Temp 97.9 F 10/24/24 19:35 Pulse 68 10/24/24 22:00 Resp 18 10/24/24 22:00 BP 124/84 10/24/24 22:00 Pulse Ox 100 10/24/24 22:00 O2 Del Method Room Air 10/24/24 22:00 Course Vital Signs Vital signs: Vital Signs Temperature 97.9 F 10/24/24 19:35 Pulse Rate 77 10/24/24 19:35 Respiratory Rate 18 10/24/24 19:35 Blood Pressure 121/83 10/24/24 19:35 Pulse Oximetry 100 10/24/24 19:35 Oxygen Delivery Method Room Air 10/24/24 19:35 Temperature 97.9 F 10/24/24 19:35 Pulse Rate 68 10/24/24 22:00 Respiratory Rate 18 10/24/24 22:00 Blood Pressure 124/84 10/24/24 22:00 Pulse Oximetry 100 10/24/24 22:00 Oxygen Delivery Method Room Air 10/24/24 22:00 MDM - SOB/Dyspnea MDM Narrative Medical decision making narrative: This 24-year-old male who states he has a family history of tachycardia and has been urinating excessively and drink excessively over the weekend having a case of beer and multiple shots of liquor presents for evaluation of paresthesias in his feet to his shoulders that resulted in some shortness of breath. He admits to tobacco use. He denies any dizziness or syncope. He initially had some nausea or vomiting after drinking excessively over the weekend. He is not having any abdominal pain nausea or vomiting at this time. He explained to the nurse that he would like to have his iron checked because he has had to have blood leading procedures done in the past due to an elevated hemoglobin but denies a history of hemochromatosis. He does admit to history of anxiety but states he does not feel this is anxiety and he has been seen in the past for similar symptoms by his family physician but does not feel he is being taken seriously. An EKG done upon arrival is a sinus rhythm at 70 bpm. An IV was placed and routine labs were ordered. He has a normal white count. Hemoglobin is stable at 16. Electrolytes are normal with a mildly low potassium at 3.1. This was replaced orally. BUN and creatinine are normal. His glucose is normal at 87. Troponin is normal and D-dimer is normal. TSH is normal. Urine is negative for infection but does show ketones. The results of his labs were discussed with him. A two-view chest x-ray was ordered and reviewed by myself. CXR has a normal mediastinum, normal cardiac borders, no acute pulmonary infiltrate, normal soft tissues. He is still anxious but otherwise stable for discharge. He will be referred to his family physician. He also feels that he needs a cardiac referral and will discuss this with his family doctor. Besides the low potassium of 3.1 his labs are all normal. I suspect a large component of his symptoms are anxiety related. He complained that his IV was hurting his arm and the fluids were discontinued and he was given clear pop to drink. He is drinking it without difficulty. Lab Data Attestation: I reviewed the patient's lab results. Labs: Lab Results 10/24/24 10/24/24 Range/Units 20:00 20:30 WBC 7.3 (4.0-11.0) 10^3/uL RBC 5.16 (4.70-6.10) 10^6/uL Hgb 16.5 (14.0-18.0) g/dL Hct 45.2 (42.0-54.0) % MCV 87.6 (80.0-94.0) fL MCH 32.0 (25.9-34.0) pg MCHC 36.5 H (29.9-35.2) g/dL RDW 11.0 (11.0-15.0) % Plt Count 156 (150-450) 10^3/uL MPV 9.2 L (9.5-13.5) fL Neut % (Auto) 56.2 (43.0-75.0) % Lymph % (Auto) 34.6 (20.5-60.0) % [place] % (Auto) 7.1 (1.7-12.0) % Eos % (Auto) 1.6 (0.9-7.0) % Baso % (Auto) 0.4 (0.2-2.0) % Neut # (Auto) 4.1 (1.4-6.5) 10^3/uL Lymph # (Auto) 2.5 (1.2-3.8) 10^3/uL [place] # (Auto) 0.5 (0.3-0.8) 10^3/uL Eos # (Auto) 0.1 (0.0-0.7) 10^3/uL Baso # (Auto) 0.0 (0.0-0.1) 10^3/uL Abs Immat Gran (auto) 0.01 (0.00-0.03) 10^3/uL Imm/Tot Granulo (auto) 0.1 (0.0-0.5) % D-Dimer <0.19 (<=0.59) mg/L FEU Sodium 139 (136-145) mmol/L Potassium 3.1 L (3.5-5.1) mmol/L Chloride 103 (98-107) mmol/L Carbon Dioxide 22.0 (21.0-32.0) mmol/L Anion Gap 17.1 BUN 16.0 (7.0-18.0) mg/dL Creatinine 0.94 (0.70-1.30) mg/dL Est GFR ( Amer) >60 (>=60 mL/min/1.73m^2) Est GFR (Non-Af Amer) >60 (>=60 mL/min/1.73m^2) BUN/Creatinine Ratio 17.0 Glucose 87 (74-106) mg/dL Calcium 9.6 (8.5-10.1) mg/dL Total Bilirubin 0.7 (0.2-1.0) mg/dL AST 23 (15-37) U/L ALT 22 (16-63) U/L Alkaline Phosphatase 86 (46-116) U/L Troponin I High Sens <4.0 L (4.0-76.1) pg/mL Total Protein 7.5 (6.4-8.2) g/dL Albumin 4.4 (3.4-5.0) g/dL Globulin 3.1 g/dL Albumin/Globulin Ratio 1.4 TSH 1.373 (0.358-3.740) uIU/mL Urine Color Lt. yellow (YELLOW) Urine Clarity Clear (CLEAR) Urine pH 6.5 (5.0-9.0) Ur Specific [place] <=1.005 A (1.005-1.025) Urine Protein Negative (NEG/TRACE) mg/dL Urine Glucose (UA) Negative (NEGATIVE) mg/dL Urine Ketones 40 A (NEGATIVE) mg/dL Urine Occult Blood Negative (NEGATIVE) Urine Nitrite Negative (NEGATIVE) Urine Bilirubin Negative (NEGATIVE) Urine Urobilinogen 0.2 (0.2-1.0) EU/dL Ur Leukocyte Esterase Negative (NEGATIVE) Urine RBC None seen (0-2) #/HPF Urine WBC None seen (NONE SEEN) #/HPF Ur Squamous Epith Cells None seen (NONE/RARE) #/LPF Urine Crystals None seen (None Seen) #/HPF Urine Bacteria None seen (NONE SEEN) #/HPF Urine Casts None seen (NONE SEEN) #/LPF Urine Mucus None seen (NONE SEEN) Ur Culture Indicated? No ECG Data Attestation: I personally reviewed and interpreted this ECG as follows: (Sinus rhythm with occasional PVCs at 70 bpm, normal axis, normal intervals, no acute ST segment elevation or T wave inversion) Discharge Plan Discharge Chief Complaint: Shortness of Breath/Dyspnea Clinical Impression: Paresthesia of bilateral legs, Hypokalemia Patient Disposition: Home, Self-Care Time of Disposition Decision: 21:33 Condition: Good Prescriptions / Home Meds: No Action No Known Home Medications Print Language: Spanish Referrals: DANA CALVO [Primary Care Provider] - 1 week Discharge Date/Time: 10/24/24 22:00
[2024-10-24 20:10] LABS: Basophils Percent Auto 0.4 % (0.2-2.0); Eosinophils Absolute Auto 0.1 10^3/uL (0.0-0.7); Eosinophils Percent Auto 1.6 % (0.9-7.0); Hematocrit 45.2 % (42.0-54.0); Hemoglobin 16.5 g/dL (14.0-18.0); Immature Granulocytes Abs Auto 0.01 10^3/uL (0.00-0.03); Immature Granulocytes Pct Auto 0.1 % (0.0-0.5); Lymphocytes Absolute Auto 2.5 10^3/uL (1.2-3.8); Lymphocytes Percent Auto 34.6 % (20.5-60.0); Mean Corpuscular HGB Conc 36.5 g/dL (29.9-35.2); Mean Corpuscular Volume 87.6 fL (80.0-94.0); Mean Platelet Volume 9.2 fL (9.5-13.5); Monocytes Absolute Auto 0.5 10^3/uL (0.3-0.8); Monocytes Percent Auto 7.1 % (1.7-12.0); Neutrophils Absolute Auto 4.1 10^3/uL (1.4-6.5); Neutrophils Percent Auto 56.2 % (43.0-75.0); Platelet Count 156 10^3/uL (150-450); Red Blood Count 5.16 10^6/uL (4.70-6.10); White Blood Count 7.3 10^3/uL (4.0-11.0)
[2024-10-24] MEDS: 0.9 % SODIUM CHLORIDE 1,000 ML 1000 ML IV (20:12)
[2024-10-24 20:33] LABS: Alanine Aminotransferase 22 U/L (16-63); Albumin Globulin Ratio 1.4; Albumin Level 4.4 g/dL (3.4-5.0); Alkaline Phosphatase 86 U/L (46-116); Anion Gap 17.1; Aspartate Amino Transferase 23 U/L (15-37); Bilirubin Total 0.7 mg/dL (0.2-1.0); Calcium 9.6 mg/dL (8.5-10.1); Chloride 103 mmol/L (98-107); Estimated GFR (African America >60 (>=60 mL/min/1.73m^2); Estimated GFR (Non-African Ame >60 (>=60 mL/min/1.73m^2); Globulin 3.1 g/dL; Glucose 87 mg/dL (74-106); Potassium 3.1 mmol/L (3.5-5.1); Sodium 139 mmol/L (136-145); Total Protein 7.5 g/dL (6.4-8.2)
[2024-10-24 20:38] LABS: D Dimer <0.19 mg/L FEU (<=0.59)
[2024-10-24 20:42] LABS: Thyroid Stimulating Hormone 1.373 uIU/mL (0.358-3.740); Troponin I High Sensitivity <4.0 pg/mL (4.0-76.1)
[2024-10-24 20:54] LABS: Bilirubin Urine NEGATIVE (NEGATIVE); Blood Urine NEGATIVE (NEGATIVE); Clarity Urine CLEAR (CLEAR); Color Urine LT. YELLOW (YELLOW); Glucose Urine UA NEGATIVE (NEGATIVE); Ketones Urine 40 mg/dL (NEGATIVE); Leukocyte Esterase Urine NEGATIVE (NEGATIVE); Nitrite Urine NEGATIVE (NEGATIVE); Protein Urine NEGATIVE (NEG/TRACE); Specific Gravity Urine <=1.005 (1.005-1.025); Urobilinogen Urine 0.2 EU/dL (0.2-1.0); pH Urine 6.5 (5.0-9.0)
[2024-10-24 21:03] LABS: Bacteria Urine NONE SEEN #/HPF (NONE SEEN); Cast Seen? NONE SEEN #/LPF (NONE SEEN); Crystals Seen? None Seen #/HPF (None Seen); Mucus Urine NONE SEEN (NONE SEEN); RBC Urine NONE SEEN #/HPF (0-2); Squamous Epithelial Cell Urine NONE SEEN #/LPF (NONE/RARE); Urine Culture Indicated NO; WBC Urine NONE SEEN #/HPF (NONE SEEN)
[2024-10-24] MEDS: POTASSIUM CHLORIDE 10 MEQ ER TABLET 20 MEQ PO (21:20)
[2024-10-24 22:00] VITALS: BP 124/84; PULSE 68; O2SAT 100
--- NOTE | 2024-10-24 22:02 | ECG_ITS ---
[facility] Test Date: 2024-10-24 Pat Name: MARGARETH BRICENO Department: Room: - Gender: Male [employer]ck Worker: : 2000 Requested By: [id number] Order Number: [id number] Reading MD: RANJANA العراقي M.D. Measurements Intervals [place] Rate: 71 P: 73 [place]: 144 QRS: 78 QRSD: 106 T: 64 QT: 382 QTc: 405 Interpretive Statements 1100 Sinus rhythm 1470 with occasional supraventricular premature complexes 9140 abnormal rhythm ECG Compared to ECG 03/29/2022 14:43:35 Incomplete right bundle-branch block no longer present ST (T wave) deviation no longer present Electronically Signed On 10-25-2024 20:08:32 EDT by RANJANA العراقي M.D.
== END 2024-10-24 22:00 | disposition home or self-care (01) ==
PROVIDERS: Emergency Provider Emergency Medicine; PCP Nurse Practitioner
DX: R20.2 Paresthesia of skin (principal); E87.6 Hypokalemia; R06.02 Shortness of breath; Z72.0 Tobacco use; F41.9 Anxiety disorder, unspecified
CPT/HCPCS: 36415; 71046; 80053; 81001; 84443; 84484; 85025; 85378; 93005; 99285